=== PATIENT | female | born 1960 | race Caucasian/White ===

== ENCOUNTER → 2016-06-21 | Outpatient (CLI) | payer OTHER ==
--- NOTE | 2016-06-21 20:56 | REP ---
Clinical: Pain. Technique: AP, lateral, bilateral oblique views of the left foot. Comparison: 04/02/2009 Findings: Moderate chronic flexion and lateral deviation to the second through fourth metatarsophalangeal joints is appreciated. There is evidence for fusion at the second interphalangeal joint. Age-related changes noted to the midfoot. Lateral view demonstrates moderate calcaneal heal spur. Impression: Degenerative changes as noted above. Signed by Chad Rivas MD 06/21/2016 08:48 P
== END ==
LOC: M WUC 13:44
PROVIDERS: ATTEND Physician Assistant
DX: M79.672 Pain in left foot (principal)

== ENCOUNTER → 2016-07-22 | Outpatient (REF) | payer OTHER ==
[2016-07-22 12:10] LABS: ALT/SGPT 56 U/L (12-78); AST/SGOT 23 U/L (15-37)
== END ==
LOC: M LABDRAWC 11:41
PROVIDERS: ATTEND Physician Assistant
DX: Z79.899 Other long term (current) drug therapy (principal)

== ENCOUNTER → 2016-08-30 | Outpatient (REF) | payer OTHER ==
[2016-08-30 18:25] LABS: ALBUMIN 4.1 GM/DL (3.2-5.2); ALBUMIN/GLOBULIN RATIO 1.64 (1.00-1.93); ALKALINE PHOSPHATASE 88 U/L (45-117); ALT/SGPT 56 U/L (12-78); ANION GAP 9 MEQ/L (8-16); AST/SGOT 24 U/L (15-37); BILIRUBIN,TOTAL 0.6 MG/DL (0.2-1.0); BLOOD UREA NITROGEN 19 MG/DL (7-18); CALCIUM LEVEL 8.6 MG/DL (8.5-10.1); CARBON DIOXIDE LEVEL 29 MEQ/L (21-32); CHLORIDE LEVEL 104 MEQ/L (98-107); CHOLESTEROL LEVEL 192 MG/DL (<200); CREATININE FOR GFR 0.99 MG/DL (0.55-1.02); FREE T4 1.17 NG/DL (0.76-1.46); GLOMERULAR FILTRATION RATE > 60.0 (>51); GLUCOSE, FASTING 88 MG/DL (70-105); POTASSIUM SERUM 4.1 MEQ/L (3.5-5.1); SODIUM LEVEL 142 MEQ/L (136-145); TOTAL PROTEIN 6.6 GM/DL (6.4-8.2); TRIGLYCERIDES LEVEL 119 MG/DL (<150)
== END ==
LOC: M SFHCCLAY 13:35
PROVIDERS: ATTEND Family Medicine
DX: E78.4 Other hyperlipidemia (principal); E07.9 Disorder of thyroid, unspecified

== ENCOUNTER → 2017-03-15 | Outpatient (REF) | payer OTHER ==
[2017-03-15 12:04] LABS: ALBUMIN 3.7 GM/DL (3.2-5.2); ALBUMIN/GLOBULIN RATIO 1.54 (1.00-1.93); ALKALINE PHOSPHATASE 89 U/L (45-117); ALT/SGPT 90 U/L (12-78); ANION GAP 6 MEQ/L (8-16); AST/SGOT 37 U/L (15-37); BILIRUBIN,TOTAL 0.7 MG/DL (0.2-1.0); BLOOD UREA NITROGEN 17 MG/DL (7-18); CALCIUM LEVEL 8.8 MG/DL (8.5-10.1); CARBON DIOXIDE LEVEL 29 MEQ/L (21-32); CHLORIDE LEVEL 105 MEQ/L (98-107); CHOLESTEROL LEVEL 165 MG/DL (<200); CREATININE FOR GFR 0.93 MG/DL (0.55-1.02); FREE T4 1.19 NG/DL (0.76-1.46); GLOMERULAR FILTRATION RATE > 60.0 (>51); GLUCOSE, FASTING 144 MG/DL (70-105); POTASSIUM SERUM 4.4 MEQ/L (3.5-5.1); SODIUM LEVEL 140 MEQ/L (136-145); TOTAL PROTEIN 6.1 GM/DL (6.4-8.2); TRIGLYCERIDES LEVEL 163 MG/DL (<150)
== END ==
LOC: M SFHCCLAY 07:02
PROVIDERS: ATTEND Family Medicine
DX: E78.4 Other hyperlipidemia (principal); E07.9 Disorder of thyroid, unspecified

== ENCOUNTER → 2017-03-15 | Outpatient (REF) | payer OTHER ==
[2017-03-15 11:55] LABS: ALT/SGPT 92 U/L (12-78); AST/SGOT 37 U/L (15-37)
== END ==
LOC: M LAB REF 11:22
PROVIDERS: ATTEND Physician Assistant
DX: L40.59 Other psoriatic arthropathy (principal); Z79.899 Other long term (current) drug therapy

== ENCOUNTER → 2017-05-26 | Outpatient (CLI) | payer OTHER ==
--- NOTE | 2017-05-26 17:10 | REPMRS ---
Patient History The patient states she had a clinical breast exam in 05/2017. Family history of breast cancer in maternal aunt at age 50 or over and colorectal cancer in 2 maternal uncles at age 50 or over. Digital Woman Screen Mammo: May 26, 2017 - Exam #: [id number] Bilateral CC and MLO view(s) were taken. Technologist: Regina Stauffer Technologist Prior study comparison: November 13, 2015, digital woman screen mammo performed at [facility]. April 16, 2014, digital woman screen mammo performed at [facility]. April 12, 2013, digital woman screen mammo performed at [facility]. FINDINGS: There are scattered fibroglandular densities. There has been no change in the appearance of the mammogram from the prior studies. There is a mild amount of residual fibroglandular tissue which is fairly symmetric. There is no interval development of dominant mass, architectural distortion, or clustered microcalcification suggestive of malignancy. Scattered lymph nodes are seen in the axillae. No significant changes when compared with prior studies. ASSESSMENT: BI-RADS/ACR category 2 mammogram. Benign finding(s). Recommendation Routine screening mammogram in 1 year (for women over age 40). This mammogram was interpreted with the aid of an FDA-approved computer-aided dectection system. A. Negative x-ray reports should not delay biopsy if a dominant or clinically suspicious mass is present. B. Four to eight percent of cancers are not identified by mammography. C. Adenosis and dense breast may obscure an underlying neoplasm. Electronically Signed By: Spencer Howell MD 05/26/17 0331
== END ==
LOC: M WHC 14:44
PROVIDERS: ATTEND Family Medicine
DX: Z12.31 Encounter for screening mammogram for malignant neoplasm of breast (principal)

== ENCOUNTER → 2017-05-26 | Outpatient (REF) | payer OTHER | LOC: M SFHCWAGY 15:32 | PROVIDERS: ATTEND Nurse Practitioner Women's Health | DX: Z12.4 Encounter for screening for malignant neoplasm of cervix (principal) ==

== ENCOUNTER → 2017-08-03 | Outpatient (CLI) | payer OTHER ==
[2017-08-03 16:54] LABS: ALBUMIN 3.9 GM/DL (3.2-5.2); ALBUMIN/GLOBULIN RATIO 1.39 (1.00-1.93); ALKALINE PHOSPHATASE 98 U/L (45-117); ALT/SGPT 86 U/L (12-78); ANION GAP 6 MEQ/L (8-16); AST/SGOT 41 U/L (7-37); BILIRUBIN,DIRECT 0.1 MG/DL (0.0-0.2); BILIRUBIN,TOTAL 0.4 MG/DL (0.2-1.0); BLOOD UREA NITROGEN 16 MG/DL (7-18); C REACTIVE PROTEIN QUANTITATIV 0.96 MG/DL (0.00-0.30); CALCIUM LEVEL 8.9 MG/DL (8.5-10.1); CARBON DIOXIDE LEVEL 28 MEQ/L (21-32); CHLORIDE LEVEL 105 MEQ/L (98-107); CREATININE FOR GFR 0.88 MG/DL (0.55-1.30); GLOMERULAR FILTRATION RATE > 60.0 (>51); GLUCOSE, FASTING 135 MG/DL (70-100); POTASSIUM SERUM 4.5 MEQ/L (3.5-5.1); SODIUM LEVEL 139 MEQ/L (136-145); TOTAL PROTEIN 6.7 GM/DL (6.4-8.2)
[2017-08-03 18:09] LABS: BASO % 0.7 % (0.0-1.0); EOS # 0.2 10^3/uL (0.0-0.50); EOS % 3.5 % (0.0-3.0); HEMATOCRIT 41.5 % (36.0-47.0); HEMOGLOBIN 13.6 g/dl (12.0-16.0); IMMATURE GRANULOCYTE % 0.5 % (0-3.0); LYMPH # 1.7 10^3/uL (1.5-4.5); MEAN CORPUSCULAR HEMOGLOBIN 29.6 pg (27.0-33.0); MEAN CORPUSCULAR HGB CONC 32.8 g/dl (32.0-36.5); MEAN CORPUSCULAR VOLUME 90.2 fl (80.0-96.0); MONO # 0.6 10^3/uL (0.0-0.8); MONO % 10.1 % (0.0-5.0); NEUTROPHILS # 3.3 10^3/uL (1.8-7.7); NEUTROPHILS % 56.2 % (36.0-66.0); PLATELET COUNT, AUTOMATED 200 10^3/uL (150-450); RED CELL DISTRIBUTION WIDTH 13.8 % (11.5-14.5); WHITE BLOOD COUNT 5.9 10^3/uL (4.0-10.0)
[2017-08-06 00:06] LABS: ANA (HEP2) Positive (.)
== END ==
LOC: M LAB 15:43
DX: R94.5 Abnormal results of liver function studies (principal)
CPT/HCPCS: 82248

== ENCOUNTER → 2017-08-10 | Outpatient (CLI) | payer OTHER ==
[2017-08-10 20:13] LABS: INR 1.03; PARTIAL THROMBOPLASTIN TIME 28.5 SECONDS (26.8-37.9); PROTHROMBIN TIME 13.6 SECONDS (12.4-14.5)
== END ==
LOC: M WUC 16:31
DX: R94.5 Abnormal results of liver function studies (principal); R93.3 Abnormal findings on diagnostic imaging of other parts of digestive tract
CPT/HCPCS: 85610

== ENCOUNTER → 2017-08-25 | Outpatient (CLI) | payer OTHER ==
[~2017-08-25] MED LIST: ACETAMINOPHEN 325 MG TAB As Ordered; LIDOCAINE 1% MDV 20ML VIAL As Ordered
== END ==
LOC: M RADPRO 09:04
DX: R94.5 Abnormal results of liver function studies (principal); K76.0 Fatty (change of) liver, not elsewhere classified; Z79.899 Other long term (current) drug therapy
CPT/HCPCS: 47000

== ENCOUNTER → 2017-10-04 | Outpatient (REF) | payer OTHER ==
[2017-10-04 14:04] LABS: ALBUMIN 3.9 GM/DL (3.2-5.2); ALBUMIN/GLOBULIN RATIO 1.39 (1.00-1.93); ALKALINE PHOSPHATASE 84 U/L (45-117); ALT/SGPT 57 U/L (12-78); ANION GAP 6 MEQ/L (8-16); AST/SGOT 22 U/L (7-37); BILIRUBIN,TOTAL 0.7 MG/DL (0.2-1.0); BLOOD UREA NITROGEN 20 MG/DL (7-18); CALCIUM LEVEL 9.2 MG/DL (8.5-10.1); CARBON DIOXIDE LEVEL 29 MEQ/L (21-32); CHLORIDE LEVEL 104 MEQ/L (98-107); CHOLESTEROL LEVEL 174 MG/DL (<200); CHOLESTEROL RISK RATIO 4.833 (<5); FREE T4 1.08 NG/DL (0.76-1.46); GLOMERULAR FILTRATION RATE > 60.0 (>51); GLUCOSE, FASTING 111 MG/DL (70-100); HDL CHOLESTEROL 36 MG/DL (>40); LDL CHOLESTEROL 113.8 MG/DL (<100); NON-HDL-C 138 MG/DL; POTASSIUM SERUM 4.1 MEQ/L (3.5-5.1); SODIUM LEVEL 139 MEQ/L (136-145); THYROID STIMULATING HORMONE 0.894 uIU/ML (0.358-3.740); TOTAL PROTEIN 6.7 GM/DL (6.4-8.2); TRIGLYCERIDES LEVEL 121 MG/DL (<150)
[2017-10-04 15:12] LABS: ESTIMATED AVERAGE GLUCOSE 120 MG/DL (60-110); HEMOGLOBIN A1c 5.8 %
== END ==
LOC: M SFHCCLAY 07:06
DX: E78.4 Other hyperlipidemia (principal); E07.9 Disorder of thyroid, unspecified; R73.9 Hyperglycemia, unspecified
CPT/HCPCS: 84443

== ENCOUNTER → 2017-11-03 | Outpatient (CLI) | payer OTHER ==
[~2017-11-03] MED LIST changes: -ACETAMINOPHEN 325 MG TAB As Ordered; +GASTROGRAFIN SOLUTION 30ML (Q9963) As Ordered; +ISOVUE-370 76% 100ML VIAL (Q9967) As Ordered; -LIDOCAINE 1% MDV 20ML VIAL As Ordered
== END ==
LOC: M RAD 14:16
DX: R10.30 Lower abdominal pain, unspecified (principal); Z90.710 Acquired absence of both cervix and uterus
CPT/HCPCS: Q9963

== ENCOUNTER → 2018-04-09 | Outpatient (REF) | payer OTHER ==
[2018-04-09 12:25] LABS: ANION GAP 7 MEQ/L (8-16); BLOOD UREA NITROGEN 19 MG/DL (7-18); CALCIUM LEVEL 9.1 MG/DL (8.5-10.1); CARBON DIOXIDE LEVEL 29 MEQ/L (21-32); CHLORIDE LEVEL 103 MEQ/L (98-107); CREATININE FOR GFR 1.05 MG/DL (0.55-1.30); GLOMERULAR FILTRATION RATE 57.7 (>51); GLUCOSE, FASTING 130 MG/DL (70-100); POTASSIUM SERUM 4.1 MEQ/L (3.5-5.1); SODIUM LEVEL 139 MEQ/L (136-145)
[2018-04-09 13:14] LABS: ESTIMATED AVERAGE GLUCOSE 131 MG/DL (60-110); HEMOGLOBIN A1c 6.2 %
== END ==
LOC: M SFHCCLAY 08:34
DX: R73.9 Hyperglycemia, unspecified (principal)

== ENCOUNTER → 2018-04-17 | Outpatient (REF) | payer OTHER ==
[2018-04-18 12:31] LABS: HEMOGLOBIN 14.2 g/dl (12.0-15.5); PLATELET COUNT, AUTOMATED 228 10^3/uL (150-450)
[2018-04-18 12:31] LABS: WHITE BLOOD COUNT 6.5 10^3/uL (4.0-10.0)
[2018-04-18 12:58] LABS: ALT/SGPT 70 U/L (12-78)
[2018-04-18 12:58] LABS: AST/SGOT 34 U/L (7-37)
== END ==
LOC: M LABDRAWC 04-18 11:23
DX: Z51.81 Encounter for therapeutic drug level monitoring (principal); L40.0 Psoriasis vulgaris; Z79.899 Other long term (current) drug therapy

== ENCOUNTER → 2018-05-02 | Outpatient (REF) | payer OTHER ==
[2018-05-02 11:48] LABS: WHITE BLOOD COUNT 6.1 10^3/uL (4.0-10.0)
[2018-05-02 11:48] LABS: HEMATOCRIT 43.1 % (36.0-47.0); HEMOGLOBIN 14.1 g/dl (12.0-15.5); PLATELET COUNT, AUTOMATED 202 10^3/uL (150-450)
[2018-05-02 11:55] LABS: ALT/SGPT 69 U/L (12-78)
[2018-05-02 11:55] LABS: AST/SGOT 36 U/L (7-37)
== END ==
LOC: M LAB REF 11:28
DX: L40.1 Generalized pustular psoriasis (principal); Z51.81 Encounter for therapeutic drug level monitoring; Z79.899 Other long term (current) drug therapy

== ENCOUNTER → 2018-05-23 | Outpatient (REF) | payer OTHER ==
[2018-05-23 11:39] LABS: BASO % 0.5 % (0.0-1.0); EOS # 0.3 10^3/uL (0.0-0.50); EOS % 4.3 % (0.0-3.0); IMMATURE GRANULOCYTE % 0.6 % (0-3.0); LYMPH # 1.5 10^3/uL (1.5-4.5); LYMPH % 22.8 % (24.0-44.0); MEAN CORPUSCULAR HEMOGLOBIN 29.9 pg (27.0-33.0); MEAN CORPUSCULAR HGB CONC 31.8 g/dl (32.0-36.5); MONO # 0.5 10^3/uL (0.0-0.8); MONO % 8.1 % (0.0-5.0); NEUTROPHILS # 4.2 10^3/uL (1.8-7.7); NEUTROPHILS % 63.7 % (36.0-66.0); PLATELET COUNT, AUTOMATED 205 10^3/uL (150-450); RED BLOOD COUNT 4.68 10^6/uL (4.00-5.40); RED CELL DISTRIBUTION WIDTH 13.5 % (11.5-14.5); WHITE BLOOD COUNT 6.5 10^3/uL (4.0-10.0)
[2018-05-23 11:53] LABS: AST/SGOT 25 U/L (7-37)
[2018-05-23 11:53] LABS: ALT/SGPT 55 U/L (12-78)
== END ==
LOC: M LABDRAWC 11:06
DX: Z51.81 Encounter for therapeutic drug level monitoring (principal); Z79.899 Other long term (current) drug therapy; L40.0 Psoriasis vulgaris

== ENCOUNTER → 2018-05-30 | Outpatient (REF) | payer OTHER ==
[2018-05-30 11:43] LABS: BASO # 0.1 10^3/uL (0.0-0.2); BASO % 0.9 % (0.0-1.0); EOS # 0.3 10^3/uL (0.0-0.50); EOS % 4.3 % (0.0-3.0); HEMATOCRIT 43.7 % (36.0-47.0); HEMOGLOBIN 14.3 g/dl (12.0-15.5); IMMATURE GRANULOCYTE % 0.6 % (0-3.0); LYMPH # 1.7 10^3/uL (1.5-4.5); LYMPH % 25.2 % (24.0-44.0); MEAN CORPUSCULAR HEMOGLOBIN 30.5 pg (27.0-33.0); MEAN CORPUSCULAR HGB CONC 32.7 g/dl (32.0-36.5); MEAN CORPUSCULAR VOLUME 93.2 fl (80.0-96.0); MONO # 0.5 10^3/uL (0.0-0.8); MONO % 7.9 % (0.0-5.0); NEUTROPHILS % 61.1 % (36.0-66.0); PLATELET COUNT, AUTOMATED 216 10^3/uL (150-450); RED BLOOD COUNT 4.69 10^6/uL (4.00-5.40); RED CELL DISTRIBUTION WIDTH 13.4 % (11.5-14.5); WHITE BLOOD COUNT 6.6 10^3/uL (4.0-10.0)
[2018-05-30 12:56] LABS: AST/SGOT 26 U/L (7-37)
[2018-05-30 12:56] LABS: ALT/SGPT 52 U/L (12-78)
== END ==
LOC: M LABDRAWC 11:21
DX: Z51.81 Encounter for therapeutic drug level monitoring (principal); Z79.899 Other long term (current) drug therapy; L40.0 Psoriasis vulgaris
CPT/HCPCS: 84460

== ENCOUNTER → 2018-06-06 | Outpatient (REF) | payer OTHER ==
[2018-06-06 11:48] LABS: BASO % 0.7 % (0.0-1.0); EOS # 0.3 10^3/uL (0.0-0.50); EOS % 5.2 % (0.0-3.0); HEMATOCRIT 43.3 % (36.0-47.0); LYMPH # 1.6 10^3/uL (1.5-4.5); LYMPH % 25.3 % (24.0-44.0); MEAN CORPUSCULAR HEMOGLOBIN 29.8 pg (27.0-33.0); MEAN CORPUSCULAR HGB CONC 32.3 g/dl (32.0-36.5); MEAN CORPUSCULAR VOLUME 92.1 fl (80.0-96.0); MONO # 0.5 10^3/uL (0.0-0.8); MONO % 7.8 % (0.0-5.0); NEUTROPHILS # 3.7 10^3/uL (1.8-7.7); NEUTROPHILS % 60.3 % (36.0-66.0); PLATELET COUNT, AUTOMATED 195 10^3/uL (150-450); WHITE BLOOD COUNT 6.1 10^3/uL (4.0-10.0)
[2018-06-06 11:58] LABS: ALT/SGPT 53 U/L (12-78)
== END ==
LOC: M LABDRAWC 11:22
PROVIDERS: ATTEND Nurse Practitioner Family
DX: Z51.81 Encounter for therapeutic drug level monitoring (principal); Z79.899 Other long term (current) drug therapy; L40.0 Psoriasis vulgaris

== ENCOUNTER → 2018-06-13 | Outpatient (REF) | payer OTHER ==
[2018-06-13 11:53] LABS: BASO # 0.1 10^3/uL (0.0-0.2); BASO % 0.7 % (0.0-1.0); EOS # 0.4 10^3/uL (0.0-0.50); EOS % 5.7 % (0.0-3.0); HEMATOCRIT 42.3 % (36.0-47.0); HEMOGLOBIN 14.1 g/dl (12.0-15.5); LYMPH # 1.7 10^3/uL (1.5-4.5); LYMPH % 23.9 % (24.0-44.0); MEAN CORPUSCULAR HEMOGLOBIN 30.6 pg (27.0-33.0); MEAN CORPUSCULAR HGB CONC 33.3 g/dl (32.0-36.5); MEAN CORPUSCULAR VOLUME 91.8 fl (80.0-96.0); MONO # 0.6 10^3/uL (0.0-0.8); MONO % 8.6 % (0.0-5.0); NEUTROPHILS # 4.2 10^3/uL (1.8-7.7); NEUTROPHILS % 60.4 % (36.0-66.0); PLATELET COUNT, AUTOMATED 214 10^3/uL (150-450); RED BLOOD COUNT 4.61 10^6/uL (4.00-5.40)
[2018-06-13 12:01] LABS: ALT/SGPT 50 U/L (12-78)
== END ==
LOC: M LABDRAWC 11:20
PROVIDERS: ATTEND Nurse Practitioner Family
DX: Z51.81 Encounter for therapeutic drug level monitoring (principal); Z79.899 Other long term (current) drug therapy; L40.0 Psoriasis vulgaris

== ENCOUNTER → 2018-07-04 | Outpatient (REF) | payer OTHER ==
[2018-07-04 11:49] LABS: BASO % 0.8 % (0.0-1.0); EOS # 0.3 10^3/uL (0.0-0.50); HEMATOCRIT 42.5 % (36.0-47.0); LYMPH # 1.8 10^3/uL (1.5-4.5); LYMPH % 35.9 % (24.0-44.0); MEAN CORPUSCULAR HEMOGLOBIN 30.9 pg (27.0-33.0); MEAN CORPUSCULAR HGB CONC 32.9 g/dl (32.0-36.5); MEAN CORPUSCULAR VOLUME 93.8 fl (80.0-96.0); MONO # 0.5 10^3/uL (0.0-0.8); NEUTROPHILS # 2.4 10^3/uL (1.8-7.7); NEUTROPHILS % 47.7 % (36.0-66.0); PLATELET COUNT, AUTOMATED 186 10^3/uL (150-450); RED BLOOD COUNT 4.53 10^6/uL (4.00-5.40)
[2018-07-04 13:20] LABS: ALBUMIN 3.5 GM/DL (3.2-5.2); ALT/SGPT 50 U/L (12-78); BILIRUBIN,DIRECT 0.2 MG/DL (0.0-0.2); BILIRUBIN,TOTAL 0.5 MG/DL (0.2-1.0); BLOOD UREA NITROGEN 15 MG/DL (7-18); CALCIUM LEVEL 8.8 MG/DL (8.5-10.1); CARBON DIOXIDE LEVEL 26 MEQ/L (21-32); CHLORIDE LEVEL 105 MEQ/L (98-107); GLOMERULAR FILTRATION RATE > 60.0 (>51); GLUCOSE, FASTING 165 MG/DL (70-100); PHOSPHORUS LEVEL 3.4 MG/DL (2.5-4.9); POTASSIUM SERUM 4.5 MEQ/L (3.5-5.1); SODIUM LEVEL 142 MEQ/L (136-145)
== END ==
LOC: M LABDRAWC 11:21
PROVIDERS: ATTEND Nurse Practitioner Family
DX: Z51.81 Encounter for therapeutic drug level monitoring (principal); Z79.899 Other long term (current) drug therapy; L40.0 Psoriasis vulgaris

== ENCOUNTER → 2018-07-11 | Outpatient (REF) | payer OTHER ==
[2018-07-11 12:57] LABS: BASO % 0.8 % (0.0-1.0); EOS # 0.3 10^3/uL (0.0-0.50); EOS % 5.7 % (0.0-3.0); HEMATOCRIT 42.8 % (36.0-47.0); LYMPH # 1.5 10^3/uL (1.5-4.5); LYMPH % 27.7 % (24.0-44.0); MEAN CORPUSCULAR HEMOGLOBIN 30.6 pg (27.0-33.0); MEAN CORPUSCULAR HGB CONC 32.7 g/dl (32.0-36.5); MEAN CORPUSCULAR VOLUME 93.7 fl (80.0-96.0); MONO # 0.6 10^3/uL (0.0-0.8); MONO % 11.5 % (0.0-5.0); NEUTROPHILS # 2.8 10^3/uL (1.8-7.7); NEUTROPHILS % 53.9 % (36.0-66.0); PLATELET COUNT, AUTOMATED 187 10^3/uL (150-450); RED BLOOD COUNT 4.57 10^6/uL (4.00-5.40); WHITE BLOOD COUNT 5.2 10^3/uL (4.0-10.0)
[2018-07-11 13:19] LABS: ALBUMIN 3.6 GM/DL (3.2-5.2); ALT/SGPT 48 U/L (12-78); BILIRUBIN,DIRECT 0.1 MG/DL (0.0-0.2); BILIRUBIN,TOTAL 0.4 MG/DL (0.2-1.0); BLOOD UREA NITROGEN 17 MG/DL (7-18); CALCIUM LEVEL 8.7 MG/DL (8.5-10.1); CARBON DIOXIDE LEVEL 29 MEQ/L (21-32); CHLORIDE LEVEL 106 MEQ/L (98-107); GLOMERULAR FILTRATION RATE > 60.0 (>51); GLUCOSE, FASTING 120 MG/DL (70-100); PHOSPHORUS LEVEL 3.7 MG/DL (2.5-4.9); POTASSIUM SERUM 4.4 MEQ/L (3.5-5.1); SODIUM LEVEL 140 MEQ/L (136-145); TOTAL PROTEIN 6.3 GM/DL (6.4-8.2)
== END ==
LOC: M LABDRAWC 12:31
PROVIDERS: ATTEND Nurse Practitioner Family
DX: L40.0 Psoriasis vulgaris (principal); Z79.899 Other long term (current) drug therapy; Z51.81 Encounter for therapeutic drug level monitoring

== ENCOUNTER → 2018-07-18 | Outpatient (REF) | payer OTHER ==
[2018-07-18 17:32] LABS: BASO # 0.1 10^3/uL (0.0-0.2); BASO % 0.7 % (0.0-1.0); EOS # 0.3 10^3/uL (0.0-0.50); EOS % 4.4 % (0.0-3.0); HEMATOCRIT 43.3 % (36.0-47.0); HEMOGLOBIN 14.2 g/dl (12.0-15.5); LYMPH # 2.1 10^3/uL (1.5-4.5); LYMPH % 27.6 % (24.0-44.0); MEAN CORPUSCULAR HEMOGLOBIN 30.5 pg (27.0-33.0); MEAN CORPUSCULAR HGB CONC 32.8 g/dl (32.0-36.5); MEAN CORPUSCULAR VOLUME 92.9 fl (80.0-96.0); MONO # 0.7 10^3/uL (0.0-0.8); MONO % 9.1 % (0.0-5.0); NEUTROPHILS # 4.4 10^3/uL (1.8-7.7); NEUTROPHILS % 57.7 % (36.0-66.0); PLATELET COUNT, AUTOMATED 216 10^3/uL (150-450); RED BLOOD COUNT 4.66 10^6/uL (4.00-5.40); WHITE BLOOD COUNT 7.7 10^3/uL (4.0-10.0)
[2018-07-18 17:33] LABS: ALBUMIN 3.8 GM/DL (3.2-5.2); ALT/SGPT 50 U/L (12-78); BILIRUBIN,DIRECT < 0.1 MG/DL (0.0-0.2); BILIRUBIN,TOTAL 0.4 MG/DL (0.2-1.0); BLOOD UREA NITROGEN 19 MG/DL (7-18); CALCIUM LEVEL 8.8 MG/DL (8.5-10.1); CARBON DIOXIDE LEVEL 31 MEQ/L (21-32); CHLORIDE LEVEL 104 MEQ/L (98-107); CREATININE FOR GFR 0.92 MG/DL (0.55-1.30); GLOMERULAR FILTRATION RATE > 60.0 (>51); GLUCOSE, FASTING 87 MG/DL (70-100); PHOSPHORUS LEVEL 3.7 MG/DL (2.5-4.9); POTASSIUM SERUM 4.8 MEQ/L (3.5-5.1); SODIUM LEVEL 139 MEQ/L (136-145); TOTAL PROTEIN 6.3 GM/DL (6.4-8.2)
== END ==
LOC: M LABDRAWC 12:16
PROVIDERS: ATTEND Nurse Practitioner Family
DX: L40.0 Psoriasis vulgaris (principal); Z51.81 Encounter for therapeutic drug level monitoring

== ENCOUNTER → 2018-07-25 | Outpatient (REF) | payer OTHER ==
[2018-07-25 12:33] LABS: BASO % 0.8 % (0.0-1.0); EOS # 0.3 10^3/uL (0.0-0.50); EOS % 5.5 % (0.0-3.0); HEMATOCRIT 43.6 % (36.0-47.0); HEMOGLOBIN 14.1 g/dl (12.0-15.5); LYMPH # 1.4 10^3/uL (1.5-4.5); LYMPH % 28.3 % (24.0-44.0); MEAN CORPUSCULAR HEMOGLOBIN 30.7 pg (27.0-33.0); MEAN CORPUSCULAR HGB CONC 32.3 g/dl (32.0-36.5); MEAN CORPUSCULAR VOLUME 94.8 fl (80.0-96.0); MONO # 0.5 10^3/uL (0.0-0.8); MONO % 9.3 % (0.0-5.0); NEUTROPHILS # 2.8 10^3/uL (1.8-7.7); NEUTROPHILS % 55.7 % (36.0-66.0); PLATELET COUNT, AUTOMATED 182 10^3/uL (150-450); WHITE BLOOD COUNT 5.1 10^3/uL (4.0-10.0)
[2018-07-25 12:39] LABS: ALBUMIN 3.9 GM/DL (3.2-5.2); BILIRUBIN,DIRECT 0.2 MG/DL (0.0-0.2); BILIRUBIN,TOTAL 0.5 MG/DL (0.2-1.0); CALCIUM LEVEL 9.1 MG/DL (8.5-10.1); CREATININE FOR GFR 1.04 MG/DL (0.55-1.30); GLOMERULAR FILTRATION RATE 58.4 (>51); PHOSPHORUS LEVEL 3.5 MG/DL (2.5-4.9); POTASSIUM SERUM 4.3 MEQ/L (3.5-5.1); TOTAL PROTEIN 6.3 GM/DL (6.4-8.2)
== END ==
LOC: M LABDRAWC 11:22
PROVIDERS: ATTEND Nurse Practitioner Family
DX: L40.0 Psoriasis vulgaris (principal); Z79.899 Other long term (current) drug therapy; Z51.81 Encounter for therapeutic drug level monitoring

== ENCOUNTER → 2018-08-01 | Outpatient (CLI) | payer OTHER ==
--- NOTE | 2018-08-01 15:36 | REPMRS ---
Patient History The patient states she had a clinical breast exam in 07/2018. Family history of breast cancer at age 50 or over in maternal aunt, colorectal cancer at age 50 or over in maternal uncle, colorectal cancer at age 50 or over in maternal uncle. Taking estrogen for 1 year. 3D TOMOSYNTHESIS WAS PERFORMED. Digital Woman Screen Mammo: August 01, 2018 - Exam #: [id number] Bilateral CC and MLO view(s) were taken. Technologist: Mana Richard, Technologist Prior study comparison: May 26, 2017, digital woman screen mammo performed at [facility]. November 13, 2015, digital woman screen mammo performed at [facility]. FINDINGS: There are scattered fibroglandular densities. There has been no change in the appearance of the mammogram from the prior studies. There is a mild amount of residual fibroglandular tissue which is fairly symmetric. There is no interval development of dominant mass, architectural distortion, or clustered microcalcification suggestive of malignancy. Assessment: BI-RADS/ACR category 1 mammogram. Negative Mammogram. Recommendation Routine screening mammogram in 1 year (for women over age 40). This mammogram was interpreted with the aid of an FDA-approved computer-aided dectection system. Electronically Signed By: Pernell Tejeda MD 08/01/18 [id number]
== END ==
LOC: M WHC 14:32
PROVIDERS: ATTEND Nurse Practitioner Women's Health
DX: Z12.31 Encounter for screening mammogram for malignant neoplasm of breast (principal)

== ENCOUNTER → 2018-08-08 | Outpatient (REF) | payer OTHER ==
[2018-08-08 12:59] LABS: BASO % 0.5 % (0.0-1.0); EOS # 0.3 10^3/uL (0.0-0.50); EOS % 4.7 % (0.0-3.0); HEMATOCRIT 42.6 % (36.0-47.0); HEMOGLOBIN 13.8 g/dl (12.0-15.5); LYMPH # 1.7 10^3/uL (1.5-4.5); LYMPH % 29.9 % (24.0-44.0); MEAN CORPUSCULAR HEMOGLOBIN 30.9 pg (27.0-33.0); MEAN CORPUSCULAR HGB CONC 32.4 g/dl (32.0-36.5); MEAN CORPUSCULAR VOLUME 95.5 fl (80.0-96.0); MONO # 0.5 10^3/uL (0.0-0.8); MONO % 8.9 % (0.0-5.0); NEUTROPHILS % 55.1 % (36.0-66.0); PLATELET COUNT, AUTOMATED 189 10^3/uL (150-450); RED BLOOD COUNT 4.46 10^6/uL (4.00-5.40); WHITE BLOOD COUNT 5.5 10^3/uL (4.0-10.0)
[2018-08-08 13:00] LABS: ALBUMIN 3.8 GM/DL (3.2-5.2); ALT/SGPT 48 U/L (12-78); BILIRUBIN,DIRECT 0.1 MG/DL (0.0-0.2); BILIRUBIN,TOTAL 0.4 MG/DL (0.2-1.0); BLOOD UREA NITROGEN 17 MG/DL (7-18); CALCIUM LEVEL 8.6 MG/DL (8.5-10.1); CARBON DIOXIDE LEVEL 30 MEQ/L (21-32); CHLORIDE LEVEL 105 MEQ/L (98-107); CREATININE FOR GFR 0.89 MG/DL (0.55-1.30); GLOMERULAR FILTRATION RATE > 60.0 (>51); GLUCOSE, FASTING 110 MG/DL (70-100); PHOSPHORUS LEVEL 3.3 MG/DL (2.5-4.9); POTASSIUM SERUM 4.6 MEQ/L (3.5-5.1); SODIUM LEVEL 140 MEQ/L (136-145); TOTAL PROTEIN 6.3 GM/DL (6.4-8.2)
== END ==
LOC: M LABDRAWC 11:17
PROVIDERS: ATTEND Nurse Practitioner Family
DX: L40.0 Psoriasis vulgaris (principal); Z51.81 Encounter for therapeutic drug level monitoring; Z79.899 Other long term (current) drug therapy

== ENCOUNTER → 2018-08-22 | Outpatient (REF) | payer OTHER ==
[2018-08-22 12:07] LABS: BASO # 0.1 10^3/uL (0.0-0.2); EOS # 0.4 10^3/uL (0.0-0.50); EOS % 5.9 % (0.0-3.0); LYMPH # 1.5 10^3/uL (1.5-4.5); LYMPH % 24.4 % (24.0-44.0); MEAN CORPUSCULAR HEMOGLOBIN 30.6 pg (27.0-33.0); MEAN CORPUSCULAR HGB CONC 32.6 g/dl (32.0-36.5); MEAN CORPUSCULAR VOLUME 94.1 fl (80.0-96.0); MONO # 0.6 10^3/uL (0.0-0.8); NEUTROPHILS # 3.7 10^3/uL (1.8-7.7); NEUTROPHILS % 58.9 % (36.0-66.0); PLATELET COUNT, AUTOMATED 224 10^3/uL (150-450); RED BLOOD COUNT 4.57 10^6/uL (4.00-5.40); WHITE BLOOD COUNT 6.2 10^3/uL (4.0-10.0)
[2018-08-22 12:31] LABS: ALT/SGPT 52 U/L (12-78)
== END ==
LOC: M LABDRAWC 11:25
PROVIDERS: ATTEND Nurse Practitioner Family
DX: Z51.81 Encounter for therapeutic drug level monitoring (principal); L40.0 Psoriasis vulgaris; Z79.899 Other long term (current) drug therapy

== ENCOUNTER → 2018-10-08 | Outpatient (REF) | payer OTHER ==
[2018-10-08 11:39] LABS: ALBUMIN 3.9 GM/DL (3.2-5.2); ALT/SGPT 47 U/L (12-78); BILIRUBIN,TOTAL 0.5 MG/DL (0.2-1.0); BLOOD UREA NITROGEN 15 MG/DL (7-18); CALCIUM LEVEL 8.6 MG/DL (8.5-10.1); CARBON DIOXIDE LEVEL 26 MEQ/L (21-32); CHLORIDE LEVEL 106 MEQ/L (98-107); CHOLESTEROL LEVEL 168 MG/DL (<200); CHOLESTEROL RISK RATIO 4.941 (<5); CREATININE FOR GFR 0.89 MG/DL (0.55-1.30); GLOMERULAR FILTRATION RATE > 60.0 (>51); GLUCOSE, FASTING 135 MG/DL (70-100); HDL CHOLESTEROL 34 MG/DL (>40); LDL CHOLESTEROL 99.8 MG/DL (<100); NON-HDL-C 134 MG/DL; POTASSIUM SERUM 4.3 MEQ/L (3.5-5.1); SODIUM LEVEL 139 MEQ/L (136-145); TOTAL PROTEIN 6.2 GM/DL (6.4-8.2); TRIGLYCERIDES LEVEL 171 MG/DL (<150)
== END ==
LOC: M SFHCCLAY 07:17
PROVIDERS: ATTEND Family Medicine
DX: R73.9 Hyperglycemia, unspecified (principal); E78.2 Mixed hyperlipidemia; E03.9 Hypothyroidism, unspecified

== ENCOUNTER → 2019-04-02 | Outpatient (REF) | payer OTHER ==
[2019-04-02 13:33] LABS: APPEARANCE, URINE CLEAR (CLEAR); BACTERIA, URINE AUTO NEGATIVE (NEGATIVE); BILIRUBIN, URINE AUTO NEGATIVE (NEGATIVE); BLOOD, URINE BLOOD NEGATIVE (NEGATIVE); COLOR, URINE COLORLESS (YELLOW); GLUCOSE, URINE (UA) AUTO NEGATIVE (NEGATIVE); KETONE, URINE AUTO NEGATIVE (NEGATIVE); LEUKOCYTE ESTERASE, URINE AUTO NEGATIVE (NEGATIVE); NITRITE, URINE AUTO NEGATIVE (NEGATIVE); PROTEIN, URINE AUTO NEGATIVE (NEGATIVE); RBC, URINE AUTO 0 /HPF (0-3); SPECIFIC GRAVITY URINE AUTO 1.003 (1.002-1.035); SQUAMOUS EPITHELIAL CELL UR AU 1 /HPF (0-6); UROBILINOGEN, URINE AUTO 0.2 mg/dL (0.0-2.0); WBC, URINE AUTO 0 /HPF (0-3)
== END ==
LOC: M LAB REF 12:11
PROVIDERS: ATTEND Physician Assistant Medical
DX: N39.0 Urinary tract infection, site not specified (principal)

== ENCOUNTER → 2019-04-08 | Outpatient (REF) | payer OTHER ==
[2019-04-08 11:49] LABS: ALBUMIN 3.8 GM/DL (3.2-5.2); ALT/SGPT 41 U/L (12-78); BILIRUBIN,TOTAL 0.9 MG/DL (0.2-1.0); BLOOD UREA NITROGEN 17 MG/DL (7-18); CALCIUM LEVEL 8.8 MG/DL (8.5-10.1); CARBON DIOXIDE LEVEL 30 MEQ/L (21-32); CHLORIDE LEVEL 106 MEQ/L (98-107); CREATININE FOR GFR 0.94 MG/DL (0.55-1.30); GLOMERULAR FILTRATION RATE > 60.0 (>51); GLUCOSE, FASTING 137 MG/DL (70-100); POTASSIUM SERUM 5.3 MEQ/L (3.5-5.1); SODIUM LEVEL 139 MEQ/L (136-145); TOTAL PROTEIN 6.3 GM/DL (6.4-8.2)
[2019-04-08 12:53] LABS: HEMOGLOBIN A1c 6.3 %
== END ==
LOC: M SFHCCLAY 07:14
PROVIDERS: ATTEND Family Medicine
DX: R73.9 Hyperglycemia, unspecified (principal); E03.9 Hypothyroidism, unspecified

== ENCOUNTER → 2019-04-11 | Outpatient (CLI) | payer OTHER ==
--- NOTE | 2019-04-11 15:30 | REP ---
REASON: Pyrexia and chills. FINDINGS: The superior mediastinal structures are midline. The cardiac silhouette is unremarkable in size, shape, and position. The diaphragmatic surfaces of the lungs are regular, and the costophrenic angles are clear. The pulmonary raya are clear. The imaged osseous structures are intact. IMPRESSION: There is no acute cardiopulmonary disease. Electronically Signed by Zac Reyes DO 04/11/2019 04:57 P
== END ==
LOC: M CLY 13:52
PROVIDERS: ATTEND Family Medicine
DX: R50.9 Fever, unspecified (principal); R07.1 Chest pain on breathing

== ENCOUNTER → 2019-10-07 | Outpatient (REF) | payer OTHER ==
[2019-10-07 16:19] LABS: ALBUMIN 3.7 GM/DL (3.2-5.2); ALT/SGPT 46 U/L (12-78); BILIRUBIN,TOTAL 0.5 MG/DL (0.2-1.0); BLOOD UREA NITROGEN 11 MG/DL (7-18); CALCIUM LEVEL 8.9 MG/DL (8.5-10.1); CARBON DIOXIDE LEVEL 28 MEQ/L (21-32); CHLORIDE LEVEL 107 MEQ/L (98-107); CHOLESTEROL LEVEL 175 MG/DL (<200); CHOLESTEROL RISK RATIO 5.468 (<5); CREATININE FOR GFR 0.96 MG/DL (0.55-1.30); GLOMERULAR FILTRATION RATE > 60.0 (>51); GLUCOSE, FASTING 122 MG/DL (70-100); HDL CHOLESTEROL 32 MG/DL (>40); LDL CHOLESTEROL 107 MG/DL (<100); NON-HDL-C 143 MG/DL; POTASSIUM SERUM 4.3 MEQ/L (3.5-5.1); SODIUM LEVEL 140 MEQ/L (136-145); TOTAL PROTEIN 6.6 GM/DL (6.4-8.2); TRIGLYCERIDES LEVEL 179 MG/DL (<150)
[2019-10-07 18:41] LABS: HEMOGLOBIN A1c 6.7 %
== END ==
LOC: M SFHCCLAY 10:07
PROVIDERS: ATTEND Family Medicine
DX: R73.9 Hyperglycemia, unspecified (principal); E78.2 Mixed hyperlipidemia

== ENCOUNTER → 2019-11-21 | Outpatient (CLI) | payer OTHER | LOC: M PLALAB 15:43 | PROVIDERS: ATTEND Nurse Practitioner Women's Health | DX: Z12.4 Encounter for screening for malignant neoplasm of cervix (principal); Z13.71 Encounter for nonprocreative screening for genetic disease carrier status | CPT/HCPCS: 36415; 87624; G0123 ==

== ENCOUNTER → 2019-11-21 | Outpatient (CLI) | payer OTHER ==
--- NOTE | 2019-11-21 16:50 | REPMRS ---
Patient History The patient states she had a clinical breast exam in November 2019. Family history of breast cancer at age 50 or over in maternal aunt, colorectal cancer at age 50 or over in maternal uncle, colorectal cancer at age 50 or over in maternal uncle. Taking estrogen for 1 year. 3D TOMOSYNTHESIS WAS PERFORMED. The Suma Bradley lifetime risk for breast cancer is 11.9%. VOLPARA DENSITY B. Digital Woman Screen Mammo: November 21, 2019 - Exam #: [id number] Bilateral CC and MLO view(s) were taken. Technologist: Sahra Carroll, Technologist Prior study comparison: August 01, 2018, bilateral digital woman screen mammo performed at [facility]. May 26, 2017, digital woman screen mammo performed at [facility]. FINDINGS: There are scattered fibroglandular densities. There has been no change in the appearance of the mammogram from the prior studies. There is a mild amount of residual fibroglandular tissue which is fairly symmetric. There is no interval development of dominant mass, architectural distortion, or clustered microcalcification suggestive of malignancy. Assessment: BI-RADS/ACR category 1 mammogram. Negative Mammogram. Recommendation Routine screening mammogram in 1 year (for women over age 40). This mammogram was interpreted with the aid of an FDA-approved computer-aided dectection system. Electronically Signed By: Pernell Tejeda MD 11/21/19 6762
== END ==
LOC: M WHC 14:42
PROVIDERS: ATTEND Nurse Practitioner Women's Health
DX: Z12.31 Encounter for screening mammogram for malignant neoplasm of breast (principal); Z80.3 Family history of malignant neoplasm of breast; Z80.0 Family history of malignant neoplasm of digestive organs

== ENCOUNTER 2020-01-03 12:30 | Day surgery (SDC) | payer OTHER ==
[~2020-01-03] VITALS: Ht 167.6 cm; Wt 108.0 kg
[~2020-01-03 12:30] MED LIST changes: +APPLCAP PO; +CALCCAP4 PO; +COSE1INJ SC; +DEXI60CA2 PO; +FLAX1CAP5 PO; +FLON1SPR; -GASTROGRAFIN SOLUTION 30ML (Q9963) As Ordered; -ISOVUE-370 76% 100ML VIAL (Q9967) As Ordered; +LIDOCAINE 2% 100MG/5ML SDV (FOR ANES.) As Ordered ONE; +MIRA3350 PO; +MOBI4TAB PO; +NS 1,000 ML IV ONE; +OMEG12003 PO; +PROBCAP14 PO; +SYNT75TA PO; +propofoL 200 MG/20 ML VIAL As Ordered ONE
[2020-01-03] MEDS ORDERED: propofoL 200 MG/20 ML VIAL As Ordered ONE (13:25)
--- NOTE | 2020-01-03 13:44 | ROOR ---
Patient Name: Megan Colon Procedure Date: 01/03/2020 1:13 PM Date of : 1960 Age: 59 Room: [facility] Gender: Female Note Status: Finalized Procedure: Colonoscopy Indications: Constipation Providers: Orlando MARIN MD Referring MD: WILBUR PRITCHADR DO Requesting Provider: Medicines: Monitored Anesthesia Care Complications: No immediate complications. Procedure: Pre-Anesthesia Assessment: - The heart rate, respiratory rate, oxygen saturations, blood pressure, adequacy of pulmonary ventilation, and response to care were monitored throughout the procedure. The Colonoscope was introduced through the anus and advanced to the cecum, identified by appendiceal orifice and ileocecal valve. The colonoscopy was performed without difficulty. The patient tolerated the procedure well. The quality of the bowel preparation was adequate. Findings: The perianal and digital rectal examinations were normal. A diminutive polyp was found in the splenic flexure. The polyp was sessile. The polyp was removed with a cold snare. Resection and retrieval were complete. Small Internal Hemorrhoids. No other significant abnormalities were identified in a careful examination of the remainder of the colon. The exam was otherwise normal throughout the examined colon. Impression: - One diminutive polyp at the splenic flexure, removed with a cold snare. Resected and retrieved. - Small Internal Hemorrhoids. - The examination was otherwise normal on direct and retroflexion views. Recommendation: - Await pathology results. - If the pathology report reveals adenomatous tissue, then repeat the colonoscopy for surveillance in 5 years. - If the pathology report indicates hyperplastic polyp, then repeat colonoscopy for screening purposes in 10 years. - Telephone endoscopist for pathology results in 2 weeks. Orlando Marin MD Orlando MARIN MD 01/03/2020 1:44:08 PM Electronically signed by Orlando MARIN MD Number of Addenda: 0 Note Initiated On: 01/03/2020 1:13 PM Estimated Blood Loss: Estimated blood loss: none.
[2020-01-03 14:05] VITALS: BP 154/86
== END 2020-01-03 14:11 | disposition home or self-care (01) ==
LOC: M OPP 12:30
PROVIDERS: ATTEND Internal Medicine Gastroenterology
DX: K63.5 Polyp of colon (principal); K59.00 Constipation, unspecified; K64.8 Other hemorrhoids; Z79.899 Other long term (current) drug therapy

== ENCOUNTER → 2020-01-24 | Outpatient (REF) | payer OTHER ==
[~2020-01-24] MED LIST changes: -LIDOCAINE 2% 100MG/5ML SDV (FOR ANES.) As Ordered ONE; -NS 1,000 ML IV ONE; -propofoL 200 MG/20 ML VIAL As Ordered ONE
[2020-02-11 11:58] LABS: DRVV SCREEN 40.1 SEC
[2020-03-02 09:24] LABS: ANTI THROMBIN 3 ANTIGEN IMMUNO See Separate Report % NORMAL; ANTI THROMBIN 3 FUNCT ACTIVITY See Separate Report % NORMAL; VITAMIN E(ALPHA TOCOPHEROL) See Separate Report; VITAMIN E(GAMMA TOCOPHEROL) See Separate Report
[2020-03-02 09:25] LABS: ANTINUCLEAR ANTIBODIES DIRECT See Separate Report; PROTEIN C FUNCTIONAL ACTIVITY SEE SEPARATE REPORT %; PROTEIN S FUNCTIONAL ACTIVITY SEE SEPARATE REPORT %; VITAMIN B1 LEVEL WHOLE BLOOD See Separate Report; VITAMIN B6,PYRIDOXAL PHOSPHATE See Separate Report
[2020-03-02 09:26] LABS: FACTOR II PROTHROMBIN GENE AN SEE SEPARATE REPORT; FACTOR V LEIDEN FOR MEDINET SEE SEPARATE REPORT
[2020-03-03 16:19] LABS: FOLATE 15.3 NG/ML; RHEUMATOID FACTOR QUANT < 10.0 IU/ML (<15.0); VITAMIN B12 LEVEL 410 PG/ML
[2020-03-12 10:38] LABS: ALBUMIN % 66.5 % (55.8-66.1); ALPHA-1-GLOBULIN % 4.4 % (2.9-4.9); ALPHA-2-GLOBULINS % 9.1 % (7.1-11.8); BETA-1-GLOBULINS % 7.2 % (4.7-7.2)
[2020-03-12 10:39] LABS: ALBUMIN 4.66 GM/DL (3.29-5.55); ALPHA-1-GLOBULINS 0.31 GM/DL (0.17-0.41); ALPHA-2-GLOBULINS 0.64 GM/DL (0.42-0.99); BETA-2-GLOBULINS 0.27 GM/DL (0.19-0.55); BETA-2-GLOBULINS % 3.9 % (3.2-6.5); GAMMA GLOBULIN % 8.9 % (11.1-18.8); GAMMA GLOBULINS 0.62 GM/DL (0.65-1.58)
== END ==
LOC: M LAB REF 12:32
PROVIDERS: ATTEND Psychiatry & Neurology Neurology
DX: R51 Headache (principal); G45.9 Transient cerebral ischemic attack, unspecified

== ENCOUNTER → 2020-02-28 | Outpatient (REF) | payer OTHER ==
[2020-02-28 13:57] LABS: BASO # 0.1 10^3/uL (0.0-0.2); BASO % 0.7 % (0.0-1.0); EOS # 0.3 10^3/uL (0.0-0.5); EOS % 4.3 % (0.0-3.0); HEMOGLOBIN 12.9 g/dl (12.0-15.5); LYMPH # 1.9 10^3/uL (1.5-5.0); LYMPH % 25.8 % (24.0-44.0); MEAN CORPUSCULAR HEMOGLOBIN 29.1 pg (27.0-33.0); MEAN CORPUSCULAR HGB CONC 32.3 g/dl (32.0-36.5); MEAN CORPUSCULAR VOLUME 90.3 fl (80.0-96.0); MONO # 0.6 10^3/uL (0.0-0.8); MONO % 8.4 % (0.0-5.0); NEUTROPHILS # 4.4 10^3/uL (1.5-8.5); NEUTROPHILS % 59.7 % (36.0-66.0); PLATELET COUNT, AUTOMATED 204 10^3/uL (150-450); RED BLOOD COUNT 4.43 10^6/uL (4.00-5.40); WHITE BLOOD COUNT 7.4 10^3/uL (4.0-10.0)
[2020-02-28 14:08] LABS: INR 0.94; PROTHROMBIN TIME 12.8 SECONDS (11.8-14.0)
[2020-02-28 14:09] LABS: PARTIAL THROMBOPLASTIN TIME 27.1 SECONDS (25.0-38.4)
[2020-02-28 14:23] LABS: APPEARANCE, URINE CLOUDY (CLEAR); BACTERIA, URINE AUTO NEGATIVE (NEGATIVE); BILIRUBIN, URINE AUTO NEGATIVE (NEGATIVE); BLOOD, URINE BLOOD NEGATIVE (NEGATIVE); COLOR, URINE YELLOW (YELLOW); GLUCOSE, URINE (UA) AUTO NEGATIVE (NEGATIVE); KETONE, URINE AUTO NEGATIVE (NEGATIVE); LEUKOCYTE ESTERASE, URINE AUTO NEGATIVE (NEGATIVE); MUCUS, URINE SMALL (NEGATIVE); NITRITE, URINE AUTO NEGATIVE (NEGATIVE); PROTEIN, URINE AUTO NEGATIVE (NEGATIVE); RBC, URINE AUTO 1 /HPF (0-3); SPECIFIC GRAVITY URINE AUTO 1.026 (1.002-1.035); SQUAMOUS EPITHELIAL CELL UR AU 4 /HPF (0-6); UROBILINOGEN, URINE AUTO 0.2 mg/dL (0.0-2.0); WBC, URINE AUTO 2 /HPF (0-3)
[2020-02-28 14:46] LABS: HEMOGLOBIN A1c 7.5 %
[2020-02-28 15:25] LABS: ALBUMIN 3.7 GM/DL (3.2-5.2); ALT/SGPT 45 U/L (12-78); BILIRUBIN,DIRECT 0.2 MG/DL (0.0-0.2); BILIRUBIN,TOTAL 0.5 MG/DL (0.2-1.0); BLOOD UREA NITROGEN 16 MG/DL (7-18); CALCIUM LEVEL 9.2 MG/DL (8.5-10.1); CARBON DIOXIDE LEVEL 26 MEQ/L (21-32); CHLORIDE LEVEL 103 MEQ/L (98-107); GLOMERULAR FILTRATION RATE > 60.0 (>51); GLUCOSE, FASTING 221 MG/DL (70-100); HCG, SERUM QUANTITATIVE < 1.0 MIU/ML; MAGNESIUM LEVEL 2.2 MG/DL (1.8-2.4); PHOSPHORUS LEVEL 2.8 MG/DL (2.5-4.9); POTASSIUM SERUM 5.3 MEQ/L (3.5-5.1); SODIUM LEVEL 136 MEQ/L (136-145); TOTAL PROTEIN 6.6 GM/DL (6.4-8.2)
== END ==
LOC: M LABDRAWC 11:25
PROVIDERS: ATTEND Nurse Practitioner Adult Health
DX: I67.5 Moyamoya disease (principal)

== ENCOUNTER → 2020-03-31 | Outpatient (REF) | payer OTHER ==
[2020-03-31 16:33] LABS: HEMOGLOBIN A1c 7.1 %
[2020-03-31 16:42] LABS: ALBUMIN 3.6 GM/DL (3.2-5.2); ALT/SGPT 36 U/L (12-78); BILIRUBIN,TOTAL 0.4 MG/DL (0.2-1.0); BLOOD UREA NITROGEN 14 MG/DL (7-18); CALCIUM LEVEL 8.9 MG/DL (8.5-10.1); CARBON DIOXIDE LEVEL 30 MEQ/L (21-32); CHLORIDE LEVEL 104 MEQ/L (98-107); CREATININE FOR GFR 0.93 MG/DL (0.55-1.30); GLOMERULAR FILTRATION RATE > 60.0 (>51); GLUCOSE, FASTING 179 MG/DL (70-100); POTASSIUM SERUM 4.5 MEQ/L (3.5-5.1); SODIUM LEVEL 140 MEQ/L (136-145); THYROID STIMULATING HORMONE 0.665 uIU/ML (0.358-3.740); TOTAL PROTEIN 6.3 GM/DL (6.4-8.2)
== END ==
LOC: M SFHCCLAY 10:57
PROVIDERS: ATTEND Family Medicine
DX: R73.9 Hyperglycemia, unspecified (principal); E03.9 Hypothyroidism, unspecified

== ENCOUNTER 2020-06-13 04:28 | Observation (INO) | payer OTHER ==
[~2020-06-13] VITALS: Ht 168.9 cm; Wt 112.0 kg
[~2020-06-13 04:28] MED LIST changes: -FLON1SPR; +FLON1SPR NARES
[2020-06-13] MEDS ORDERED: ASPI81CH33 PO (04:52)
[2020-06-13] MEDS ORDERED: MORPHINE 2 MG/ML 1ML VIAL (J2270) IV PRN (05:00)
[2020-06-13] MEDS ORDERED: ONDANSETRON 4MG/2ML VIAL IV ONE (05:00)
[2020-06-13] MEDS ORDERED: NS 1,000 ML IV ONE (05:00)
[2020-06-13] MEDS ORDERED: ISOVUE-370 76% 100ML VIAL As Ordered ONE (05:04)
[2020-06-13 05:11] LABS: BASO # 0.1 10^3/uL (0.0-0.2); BASO % 0.6 % (0.0-1.0); EOS # 0.3 10^3/uL (0.0-0.5); EOS % 3.2 % (0.0-3.0); HEMATOCRIT 43.4 % (36.0-47.0); HEMOGLOBIN 13.5 g/dl (12.0-15.5); LYMPH # 1.5 10^3/uL (1.5-5.0); LYMPH % 18.6 % (24.0-44.0); MEAN CORPUSCULAR HEMOGLOBIN 26.7 pg (27.0-33.0); MEAN CORPUSCULAR HGB CONC 31.1 g/dl (32.0-36.5); MEAN CORPUSCULAR VOLUME 85.8 fl (80.0-96.0); MONO # 0.8 10^3/uL (0.0-0.8); MONO % 10.2 % (0.0-5.0); NEUTROPHILS # 5.4 10^3/uL (1.5-8.5); NEUTROPHILS % 65.8 % (36.0-66.0); PLATELET COUNT, AUTOMATED 219 10^3/uL (150-450); RED BLOOD COUNT 5.06 10^6/uL (4.00-5.40); WHITE BLOOD COUNT 8.2 10^3/uL (4.0-10.0)
[2020-06-13 06:05] LABS: ALBUMIN 3.7 GM/DL (3.2-5.2); ALT/SGPT 39 U/L (12-78); BILIRUBIN,DIRECT 0.1 MG/DL (0.0-0.2); BILIRUBIN,TOTAL 0.5 MG/DL (0.2-1.0); BLOOD UREA NITROGEN 18 MG/DL (7-18); CALCIUM LEVEL 8.6 MG/DL (8.5-10.1); CARBON DIOXIDE LEVEL 27 MEQ/L (21-32); CHLORIDE LEVEL 103 MEQ/L (98-107); CK-MB VALUE MASS < 1.0 NG/ML (<3.6); CPK CREATINE PHOSPHOKINASE 50 U/L (26-192); CREATININE FOR GFR 0.85 MG/DL (0.55-1.30); GLOMERULAR FILTRATION RATE > 60.0 (>51); GLUCOSE, FASTING 184 MG/DL (70-100); LIPASE 114 U/L (73-393); SODIUM LEVEL 136 MEQ/L (136-145); TROPONIN I < 0.02 NG/ML (< 0.10)
--- NOTE | 2020-06-13 07:17 | REPVR ---
PROCEDURE INFORMATION: Exam: CT Abdomen And Pelvis With Contrast Exam date and time: 06/13/2020 4:49 AM Age: 60 years old Clinical indication: Abdominal pain; Generalized TECHNIQUE: Imaging protocol: Computed tomography of the abdomen and pelvis with intravenous contrast. Radiation optimization: All CT scans at this facility use at least one of these dose optimization techniques: automated exposure control; mA and/or kV adjustment per patient size (includes targeted exams where dose is matched to clinical indication); or iterative reconstruction. Contrast material: ISO; Contrast volume: 100 ml; Contrast route: INTRAVENOUS (IV); COMPARISON: CT ABD PELVIS WITH CONTRAST 11/03/2017 4:06 PM FINDINGS: Lungs: Mild centrilobular emphysema. Liver: Hepatomegaly and steatosis. Gallbladder and bile ducts: Distended gallbladder demonstrates wall thickening and pericholecystic fluid. Suggestion mild hyperemia in the adjacent liver parenchyma. Suspect acute cholecystitis. Pancreas: Normal. No ductal dilation. Spleen: Normal. No splenomegaly. Adrenal glands: Normal. No mass. Kidneys and ureters: Simple cyst in the superior pole the left kidney. Stomach and bowel: Unremarkable. No obstruction. No mucosal thickening. Appendix: No evidence of appendicitis. Intraperitoneal space: Unremarkable. No free air. No significant fluid collection. Vasculature: Unremarkable. No abdominal aortic aneurysm. Lymph nodes: Unremarkable. No enlarged lymph nodes. Urinary bladder: Unremarkable as visualized. Reproductive: Status post hysterectomy. Bones/joints: Degenerative disease and facet hypertrophy of the lumbar spine.. Soft tissues: Small containing umbilical hernia. IMPRESSION: Distended gallbladder demonstrates wall thickening and pericholecystic fluid. Suggestion mild hyperemia in the adjacent liver parenchyma. Suspect acute cholecystitis. Hepatomegaly and steatosis. COMMENTS: Consistent with the [employer]'s Incidental Findings Committee white paper (J Am Billy Radiol 2018): Any incidental renal lesion less than 1 cm or classified as too small to characterize, or any incidental cystic renal lesion characterized as simple-appearing, is likely benign. No follow-up imaging is recommended for these lesions per consensus recommendations based on imaging criteria. Electronically signed by: Gilbert Garcia On 06/13/2020 07:17:08 AM
--- NOTE | 2020-06-13 07:53 | REPVR ---
PROCEDURE INFORMATION: Exam: US Abdomen, Limited; Right Upper Quadrant Exam date and time: 06/13/2020 7:35 AM Age: 60 years old Clinical indication: Abdominal pain; Additional info: Ruq pain TECHNIQUE: Imaging protocol: US abdomen. Real time ultrasound with image documentation. Limited exam focused on the right upper quadrant. COMPARISON: CT ABD/PEL W/IV CONTRAST ONLY 06/13/2020 6:17 AM FINDINGS: Liver: Coarse echogenic attenuating liver parenchyma. Gallbladder: Distended gallbladder. Pericholecystic fluid. Mild thickening of the gallbladder wall. Positive sonographic Flannery sign. Common bile duct: Normal. No stones. No dilation. Pancreas: Visualized pancreas is unremarkable. Right kidney: Normal. No mass. No hydronephrosis. IMPRESSION: Findings suggestive of acute cholecystitis. Steatosis. Electronically signed by: Gilbert Garcia On 06/13/2020 07:53:19 AM
[2020-06-13] MEDS ORDERED: AMPICILLIN SOD/SULBACTAM SOD 3 GM in D5W MINI-BAG PLUS 100 ML IV ONE (08:00)
--- NOTE | 2020-06-13 08:10 | REP ---
INDICATION: RUQ PAIN COMPARISON: 04/11/2019 TECHNIQUE: Portable AP view of the chest FINDINGS: The mediastinum and cardiac silhouette are stable and within normal limits for portable technique. The lung raya are clear without acute consolidation, effusion, or pneumothorax. Skeletal structures are intact. IMPRESSION: No acute cardiopulmonary process appreciated. <Electronically signed by Chad Rivas > 06/13/20 0800
[2020-06-13] MEDS ORDERED: ONDANSETRON 4MG/2ML VIAL IV PRN (09:45)
[2020-06-13] MEDS ORDERED: KETOROLAC 30 MG/ML 1ML VIAL IV PRN (09:45)
[2020-06-13] MEDS ORDERED: NORCO, ANEXSIA 5/325MG TABLET (HYDROcodone/ACETAMINOPHEN) PO PRN (09:45)
[2020-06-13 10:41] LABS: RSV AMPLIFICATION NEGATIVE (NEGATIVE)
--- NOTE | 2020-06-13 11:06 | HPE ---
HISTORY AND PHYSICAL DATE OF ADMISSION: 06/13/2020 CHIEF COMPLAINT: Abdominal pain. HISTORY OF PRESENT ILLNESS: The patient is a 60-year-old female who has had abdominal pain in the right upper quadrant for the past two days. It has been intermittent in intensity, but has not completely gone away since [place]. She has had intermittent nausea and vomiting along with it. The pain does not really appear to radiate too far; but when she came into the emergency room, she did have signs of acute cholecystitis on an ultrasound. She denies fevers or chills. No recent travel or trauma. No changes in medications or diet. She has had problems with the right upper quadrant pain over 10 years ago. She had a HIDA scan at the time that was negative, and she has never had any known gallstones. She was told she is prediabetic, but she is currently not on any medications for that. She was given three months by her primary to treat that with diet and exercise alone. PAST MEDICAL HISTORY: 1. Prediabetes. 2. Arthritis. 3. Recent brain vascular procedure. PAST SURGICAL HISTORY: 1. Vascular procedure in the brain. 2. Tonsillectomy and adenoidectomy. 3. and tubal ligation. ALLERGIES: None. HOME MEDICATIONS: Please see med rec including aspirin. REVIEW OF SYSTEMS: Pertinent positives and negatives as stated in the HPI. SOCIAL HISTORY: Denies drug, alcohol, or tobacco abuse. FAMILY HISTORY: Non-contributory. PHYSICAL EXAMINATION: GENERAL: Alert and oriented x3, in no acute distress. VITAL SIGNS: Temperature 97.3, pulse 82, respiratory rate 16, blood pressure 127/70, pulse ox 97% on room air. HEENT: Pupils equal, round, reactive to light and accommodation. HEART: S1, S2. Regular rate and rhythm. LUNGS: Clear to auscultation bilaterally. ABDOMEN: Soft. Tender to palpation in the right upper quadrant. Localized guarding. No rigidity. No generalized peritonitis. EXTREMITIES: No clubbing, cyanosis, or edema. LABORATORY DATA: White count 8.2, hemoglobin 13.5, platelets 219,000. Alkaline phosphatase 129, total bilirubin 0.5, AST 13, ALT 39, lactic acid 1.4. IMAGING: CT abdomen and pelvis showed a distended gallbladder with wall thickening and pericholecystic fluid that was followed up by an ultrasound, which also showed a distended gallbladder with pericholecystic fluid, mild thickening of the gallbladder wall, and positive sonographic Flannery's sign. No sign of any stones. ASSESSMENT AND PLAN: The patient is a 60-year-old female with acute acalculous cholecystitis. Recommendation at this time is to treat with some antibiotics and some anti-inflammatories. I will keep her overnight for observation and see how she is doing in the morning. If in the morning her pain is improved, I will send her home and have her see me in the office to schedule an outpatient elective procedure. However, if she does not improve by morning then we will plan for robotic cholecystectomy around 8 a.m. tomorrow.
[2020-06-13 11:35] VITALS: BP 127/69
[2020-06-13] MEDS: NS 1,000 ML IV SCH ×2 (12:09→17:58)
[2020-06-13] MEDS: PANTOPRAZOLE 40MG VIAL (C9113 PER 1) IV SCH ×2 (12:12→21:31)
[2020-06-13 14:00] VITALS: BP 106/58
[2020-06-13] MEDS: PIPERACILLIN/TAZOBACTAM SOD 3.375 GM in D5W MINI-BAG PLUS 50 ML IV SCH ×2 (15:16→21:32)
--- NOTE | 2020-06-13 18:19 | ECGEPIP ---
[facility] - ED Test Date: 2020-06-13 Pat Name: SERA SHORT Department: Room: [place] [address] Gender: Female District Or District Office Director: : 1960 Requested By: KATHY Escalera Order Number: [id number] Reading MD: Vandana Urbina Measurements Intervals [place] Rate: 82 P: 45 [place]: 202 QRS: 12 QRSD: 88 T: 22 QT: 363 QTc: 426 Interpretive Statements SINUS RHYTHM No prior Electronically Signed on 06-13-2020 18:19:19 EST by Vandana Urbina
[2020-06-13] MEDS: SENOKOT S TAB PO SCH (21:32)
[2020-06-13 22:00] VITALS: BP 105/59
[2020-06-14] MEDS: NS 1,000 ML IV SCH (01:51)
[2020-06-14] MEDS: PIPERACILLIN/TAZOBACTAM SOD 3.375 GM in D5W MINI-BAG PLUS 50 ML IV SCH ×2 (03:19→08:42)
[2020-06-14 06:00] VITALS: BP 102/51
[2020-06-14 06:31] LABS: HEMATOCRIT 39.4 % (36.0-47.0); HEMOGLOBIN 11.9 g/dl (12.0-15.5); MEAN CORPUSCULAR HEMOGLOBIN 26.6 pg (27.0-33.0); MEAN CORPUSCULAR HGB CONC 30.2 g/dl (32.0-36.5); MEAN CORPUSCULAR VOLUME 87.9 fl (80.0-96.0); PLATELET COUNT, AUTOMATED 197 10^3/uL (150-450); RED BLOOD COUNT 4.48 10^6/uL (4.00-5.40); WHITE BLOOD COUNT 5.3 10^3/uL (4.0-10.0)
[2020-06-14 06:54] LABS: ALBUMIN 2.9 GM/DL (3.2-5.2); ALT/SGPT 31 U/L (12-78); BILIRUBIN,TOTAL 0.6 MG/DL (0.2-1.0); BLOOD UREA NITROGEN 12 MG/DL (7-18); CALCIUM LEVEL 8.2 MG/DL (8.5-10.1); CARBON DIOXIDE LEVEL 28 MEQ/L (21-32); CHLORIDE LEVEL 108 MEQ/L (98-107); CREATININE FOR GFR 0.84 MG/DL (0.55-1.30); GLOMERULAR FILTRATION RATE > 60.0 (>51); GLUCOSE, FASTING 156 MG/DL (70-100); POTASSIUM SERUM 4.2 MEQ/L (3.5-5.1); SODIUM LEVEL 140 MEQ/L (136-145); TOTAL PROTEIN 5.2 GM/DL (6.4-8.2)
[2020-06-14] MEDS ORDERED: AUGM875T28 PO (07:47)
[2020-06-14] MEDS: SENOKOT S TAB PO SCH (08:42)
[2020-06-14] MEDS: PANTOPRAZOLE 40MG VIAL (C9113 PER 1) IV SCH (08:42)
--- NOTE | 2020-06-14 08:51 | DSES ---
DISCHARGE SUMMARY DATE OF ADMISSION: 06/13/2020 DATE OF DISCHARGE: 06/14/2020 ADMISSION DIAGNOSIS: Acute acalculous cholecystitis. DISCHARGE DIAGNOSIS: Acute acalculous cholecystitis. HOSPITAL COURSE: The patient is a 52-year-old female. She was admitted from the emergency room due to persistent pains. She had signs of cholecystitis on an ultrasound; however, she had normal labs overnight. She was treated with antibiotics, as well as anti-inflammatories this morning. Her sharp pains are significantly improved. The pain has also moved more towards the epigastric area rather than the right upper quadrant. She is comfortable enough to go home. DISCHARGE INSTRUCTIONS: Plan is to discharge her home today with antibiotic for five days. I also recommend that she can continue to take Tylenol and Motrin every 6 hours for the next 5 days to help with the inflammation. I will see her in the office for the next available appointment and will schedule her for outpatient elective cholecystectomy.
== END 2020-06-14 11:56 | disposition home or self-care (01) ==
LOC: M ED 04:28 → M ED INP 04:29 → ENRESERV 10:52 → M MSPAV 11:34
PROVIDERS: ADMIT Surgery; ATTEND Surgery
DX: K81.0 Acute cholecystitis (principal); R73.03 Prediabetes; E03.9 Hypothyroidism, unspecified; K57.92 Diverticulitis of intestine, part unspecified, without perforation or abscess without bleeding; K21.9 Gastro-esophageal reflux disease without esophagitis; Z79.899 Other long term (current) drug therapy
CPT/HCPCS: 36415; 71045; 74177; 76705; 80048; 80053; 80076; 81001; 82550; 82553; 83605; 83690; 84484; 85025; 85027; 86850; 86900; 86901; 87631; 93005; 93041; 96361; 96365; 96366; 96375; 96376; 99285; C9113; J2270; J2405; J2543; Q9967

== ENCOUNTER → 2020-07-03 | Outpatient (REF) | payer OTHER ==
[~2020-07-03] MED LIST changes: +ASPI81CH33 PO; +AUGM875T28 PO
[2020-07-03 16:56] LABS: ALBUMIN 3.7 GM/DL (3.2-5.2); ALT/SGPT 48 U/L (12-78); BILIRUBIN,TOTAL 0.4 MG/DL (0.2-1.0); BLOOD UREA NITROGEN 19 MG/DL (7-18); CARBON DIOXIDE LEVEL 30 MEQ/L (21-32); CHLORIDE LEVEL 102 MEQ/L (98-107); CHOLESTEROL LEVEL 161 MG/DL (<200); CHOLESTEROL RISK RATIO 5.366 (<5); CREATININE FOR GFR 0.95 MG/DL (0.55-1.30); GLOMERULAR FILTRATION RATE > 60.0 (>51); GLUCOSE, FASTING 196 MG/DL (70-100); HDL CHOLESTEROL 30 MG/DL (>40); LDL CHOLESTEROL 97 MG/DL (<100); NON-HDL-C 131 MG/DL; POTASSIUM SERUM 5.2 MEQ/L (3.5-5.1); SODIUM LEVEL 136 MEQ/L (136-145); TOTAL PROTEIN 6.2 GM/DL (6.4-8.2); TRIGLYCERIDES LEVEL 169 MG/DL (<150)
[2020-07-03 18:52] LABS: HEMOGLOBIN A1c 7.1 %
== END ==
LOC: M SFHCCLAY 10:36
PROVIDERS: ATTEND Family Medicine
DX: E78.2 Mixed hyperlipidemia (principal); R73.9 Hyperglycemia, unspecified; E07.9 Disorder of thyroid, unspecified

== ENCOUNTER → 2020-07-19 | Outpatient (CLI) | payer OTHER | LOC: M LABSMTC 10:17 | PROVIDERS: ATTEND Anesthesiology | DX: Z01.812 Encounter for preprocedural laboratory examination (principal); Z20.822 Contact with and (suspected) exposure to COVID-19 ==

== ENCOUNTER 2020-07-24 12:25 | Day surgery (SDC) | payer OTHER ==
[~2020-07-24] VITALS: Ht 167.6 cm; Wt 109.2 kg
[~2020-07-24 12:25] MED LIST changes: +LR 1,000 ML IV ONE
--- OUTSIDE RECORDS SUMMARY | 2020-07-24 12:32 | CCD ---
Author Author [facility] Organization [facility] Address Unknown Phone Unavailable Care Team Providers Care Copper Etcher Name Role Phone Pedro Archer Unavailable PROBLEMS Type Condition ICD9-CM Code [id number] Code Onset Dates Condition S tatus SNOMED Code Notes Problem Other specified disorders of Eustachian tube, bilateral H69.83 Active [id number] Problem Gastro-esophageal reflux disease without esophagitis K21.9 Active 112385109 Problem Morbid (severe) obesity due to excess calories E66 .01 Active 586067688 Problem Other hyperlipidemia E78.4 Active 34115607 Problem PA (psoriatic arthritis) L40.50 Active 4833959 09 Problem Disorder of thyroid, unspecified E07.9 Active 88260283 Problem Vaginal atrophy N95.2 Active 139392801 Problem AK (actinic keratosis) L57.0 Active 977091012 Problem Mixed hyperlipidemia E78.2 Active 592226193 Problem Hx of hysterectomy Z90.710 Active 863269188 Problem Personal history of cervical dysplasia Z87.410 A ctive 381706897 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 85639465 Problem Primary osteoarthritis involving multiple joints M 15.0 Active 089053905 Problem Facial paresthesia R20.2 Active 53455710 Problem Hypothyroidism, unspecified type E03.9 Active 75862124 Problem Dyspareunia in female N94.10 Active 33577791 Problem Constipation, unspecified constipation type K59.00 Active 19309352 Problem Non-seasonal allergic rhinitis due to other allergic naseem er J30.89 Active 31635904 Problem Type 2 diabetes mellitus wit hout complication, without long-term current use of insulin E11.9 Active 361241310 ALLERGIES Allergen (clinical drug ingredient) Drug/Non Drug Allergy do cumented on EMR Reaction Allergy Type Onset Date Status Environmental Hayfever symptoms Non Drug Allergy Active ENCOUNTERS from 1960 to 2020-07-03 Encounter Location Date Provider Diagnosis [facility] [place] [address] Jun Pedro Howellizengnela Mixed hyperlipidemia E78.2 ; Elevated bl ood sugar R73.9 and Disorder of thyroid, unspecified E07.9 IMMUNIZATIONS No Information SOCIAL HISTORY Tobacco Use: Social History Observation Description Date Details (start date - stop date) Never Smoker Sex Assigned At : Social History Observation Description Sex Assigned At Unknown Education: Question Answer Notes Level of Education: College [employer] Question Answer Notes Total Score: 2 Interpretation: Alcohol Education Language: Question Answer Notes Languages spoken: Chinese Mormon: Question Answer Notes Mormon 35 None Sexual Hx: Question Answer Notes Had sex in the last 12 months (vaginal, oral, or anal)? Yes LMP: hyster Have you ever had an STD? No with Men only Use protection? No Drug and Alcohol Question Answer Notes Total Score: 0 Interpretation: No problems reported Alcohol Screening: Question Answer Notes Did you have a drink containing alcohol in the past year? Ye s Points 4 Interpretation Positive How often did you have six or more drinks on one occas ion in the past year? Less than monthly (1 point) How many drinks did you have on a typica l day when you were drinking in the past year? 3 or 4 (1 point) How often did you have a drink containing alcohol in t he past year? Two to four times a month (2 points) BMI Care Goal Follow-Up Question Answer Notes Above Normal BMI Follow-Up Dietary management educatio n, guidance, and counseling, Giving encouragement to exercise, Weight monitoring -44.1 Tobacco Use: Question Answer Notes Are you a: never smoker REASON FOR REFERRAL No Information VITAL SIGNS No information MEDICATIONS Medication SIG (Take, Route, Frequency, Duration) Notes Start Da te End Date Status Flax Seed Oil 1000 MG 1 capsule Orally daily Active Aspirin 81 MG 1 tablet Orally Once a day for 30 day(s) Active Apple Cider Vinegar 600 MG 2 tabs Orally daily Active Fluticasone Propionate 50 MCG/ACT 1 spray in each nost ril Nasally Once a day for 60 Active Cosentyx 150 MG/ML 1 ml Subcutaneous monthly Active Synthroid 75 MCG 1 tablet in the morning on a n empty stomach Orally Once a day for 90 days Active MiraLax - 1-3 tsp Orally Once a day for 30 Active Probiotic 1 capsule Orally Daily Ac tive Calcium 600 + D 600-400 MG-UNIT 1 tablet p.o. daily Active Fish Oil 1000 MG 1 capsule Orally Once a day Active Dexilant 60 MG 1 capsule Orally Once a day Active PROCEDURES No Information RESULTS No Results REASON FOR VISIT order MEDICAL (GENERAL) HISTORY Type Description Date Medical History GERD Medical History Psoriatic arthritis Medical History Osteoarthritis-right knee Medical History Hypothyroid Medical History Diabetes Medical History Hyperlipidemia Medical History [place] Surgical History Tonsillectomy 1980 Surgical History C section x 2 1986,1989 Surgical History Partial hysterectomy 2000 Surgical History Tubal ligation 1989 Surgical History Laser surgery of cervix 1985 Surgical History Hammer toe- Bilateral 2007,2008 Surgical History Cortisone injections- right knee 02/01 & 11/30/15 Surgical History colonoscopy- Dr. Kuo 12/2012 Surgical History Liver biopsy- [facility] 08/2017 Surgical History Colonoscopy- Dr Marin- one small polyp 12/2019 Surgical History Cerebral artery bypass- Dr. Canela [address] [facility]- Cholethiasis 06/13/2020 Goals Section No Information Health Concerns No Information MEDICAL EQUIPMENT No Information MENTAL STATUS No Information FUNCTIONAL STATUS No Information ASSESSMENTS Encounter Date Diagnosis Assessment Notes Treatment Notes Treatm ent Clinical Notes Jun, Mixed hyperlipidemia (ICD-10 - E78.2) Jun, Elevated blood sugar (ICD-10 - R73.9) Jun, Disorder of thyroid, unspecified (ICD-10 - E07.9 ) PLAN OF TREATMENT Medication Medication Name Sig Start Date Stop Date Synthroid 75 MCG 1 tablet in the morning on a n empty stomach Orally Once a day for 90 days Treatment Notes Test Name Order Date Comprehensive Metabolic Profile (CMP) 2020-07-03 LIPID PANEL (CARDIAC RISK) 2020-07-03 HEMOGLOBIN A1c 2020-07-03 TSH 2020-07-03 Next Appt Details Provider Name:Pedro Archer, 03:30:00 PM, [address] [place], [address], Provider Name:Pedro Archer, 09:00:00 AM, [address] [place], [address], Provider Name:Fauzia Zhang, 3 01:00:00 PM, [address] [place], [address], Provider Name:Desi Armando, 2020-11-24 03:00:00 PM, [address] [place], [address], Insurance Providers Payer Name Payer Address Payer Phone Insured Name Patient Relati onship to Insured Coverage Start Date Coverage End Date [facility] [id number] [facility] [id number] SERA SHORT self
--- OUTSIDE RECORDS SUMMARY | 2020-07-24 12:32 | CCD ---
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 Machine Operator Name Role Phone Pedro Archer Unavailable PROBLEMS Type Condition ICD9-CM Code [id number] Code Onset Dates Condition S tatus SNOMED Code Notes Problem Other hyperlipidemia E78.4 Active 82793897 Problem Other specified disorders of Eustachian tube, bilateral H69.83 Active [id number] Problem Disorder of thyroid, unspecified E07.9 Active 72503099 Problem Morbid (severe) obesity due to excess calories E66 .01 Active 837346567 Problem AK (actinic keratosis) L57.0 Active 747241520 Problem PA (psoriatic arthritis) L40.50 Active 1193818 09 Problem Hypothyroidism, unspecified type E03.9 Active 79237921 Problem Vaginal atrophy N95.2 Active 506712857 Problem Hx of hysterectomy Z90.710 Active 435131672 Problem Personal history of cervical dysplasia Z87.410 A ctive 103869274 Problem Dyspareunia in female N94.10 Active 55225193 Problem Facial paresthesia R20.2 Active 14292949 Problem Mixed hyperlipidemia E78.2 Active 414579308 Problem Calculus of gallbladder without cholecystitis wi thout obstruction K80.20 Active 41386065 Problem Primary osteoarthritis involving multiple joints M 15.0 Active 438429753 Problem Gastro-esophageal reflux disease without esophagitis K21.9 Active 817126722 Problem Constipation, unspecified constipation type K59.00 Active 18278236 Problem Non-seasonal allergic rhinitis due to other allergic naseem er J30.89 Active 33031104 Problem Type 2 diabetes mellitus wit hout complication, without long-term current use of insulin E11.9 Active 972732701 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 28441140 ALLERGIES Allergen (clinical drug ingredient) Drug/Non Drug Allergy do cumented on EMR Reaction Allergy Type Onset Date Status Environmental Hayfever symptoms Non Drug Allergy Active ENCOUNTERS from 1962 to 2020-07-13 Encounter Location Date Provider Diagnosis [facility] Parm[facility]it [address] [place] [address] Jun Pedro Archer Cholecystitis K81.9 ; Pre-op evaluation Z01.818 ; Type 2 diabetes mellitus without complication, without long-term current use of insulin E11.9 ; 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 ; PA (psoriatic arthritis) L40.50 ; Mixed hyperlipidemia E78.2 ; Hypothyroidism, unspecified type E03.9 ; Primary osteoarthritis involving multiple joints M15.0 ; Non-seasonal allergic rhinitis due to other allergic trigger J30.89 and Constipation, unspecified constipation type K59.00 IMMUNIZATIONS Vaccine Route Administration Date Status COVID-19(given elsewhere) Unspecified Unknown Jul 09 Administered SOCIAL HISTORY Tobacco Use: Social History Observation Description Date Details (start date - stop date) Never Smoker Sex Assigned At : Social History Observation Description Sex Assigned At Unknown Education: Question Answer Notes Level of Education: College Audit Question Answer Notes Total Score: 1 Interpretation: Alcohol Education Language: Question Answer Notes Languages spoken: Bolivian Mandaeism: Question Answer Notes Mandaeism 33 None Sexual Hx: Question Answer Notes [...] REASON FOR REFERRAL No Information VITAL SIGNS Weight 243 lbs Jun, Height 65 1/2 in Jun, BMI 39.82 kg/m2 Jun, Heart Rate 87 /min Jun, Respiratory Rate 16 /min Jun, Temperature 96.6 degrees Fahrenheit Jun, Oximetry 100RA Jun, Blood pressure systolic 123 mm Hg Jun, Blood pressure diastolic 81 mm Hg Jun, MEDICATIONS Medication SIG (Take, Route, Frequency, Duration) Notes Start Da te End Date Status Apple Cider Vinegar 600 MG 2 tabs Orally daily Active Probiotic 1 capsule Orally Daily Ac tive Cosentyx 150 MG/ML 1 ml Subcutaneous monthly Active Flax Seed Oil 1000 MG 1 capsule Orally daily Active Rosuvastatin Calcium 10 MG 1 tablet Orally Once a day for 90 day (s) Jun, Active Dexilant 60 MG 1 capsule Orally Once a day Active Aspirin 81 MG 1 tablet Orally Once a day for 30 day(s) Active Synthroid 75 MCG 1 tablet in the morning on a n empty stomach Orally Once a day for 90 days Active Fish Oil 1000 MG 1 capsule Orally Once a day Active Calcium 600 + D 600-400 MG-UNIT 1 tablet p.o. daily Active MiraLax - 1-3 tsp Orally Once a day for 30 Active Fluticasone Propionate 50 MCG/ACT 1 spray in each nost ril Nasally Once a day for 60 Active PROCEDURES No Information RESULTS No Results REASON FOR VISIT Patient having planned cholecystectomy on 07/[address] Gonzalez MEDICAL (GENERAL) HISTORY Type Description Date Medical [...] Dr. Kuo 12/2012 Surgical History Liver biopsy- [facility] 08/2017 Surgical History Colonoscopy- Dr Marin- one small polyp 12/2019 Surgical History Cerebral artery bypass- Dr. Canela 2019 Hospitalization History [facility]- Cholethiasis 06/13/2020 Goals Section No Information Health Concerns No Information MEDICAL EQUIPMENT No Information MENTAL STATUS No Information FUNCTIONAL STATUS No Information ASSESSMENTS Encounter Date Diagnosis Assessment Notes Treatment Notes Treatm ent Clinical Notes Jun, Cholecystitis (ICD-10 - K81.9) Will f/u with Dr Gonzalez as scheduled. Pt is agreeable. Jun, Pre-op evaluation (ICD-10 - Z01.818) EKG was unremarkable/NSR in May 2020. She is otherwise medically stable. She may proceed with surgery for GB at low risk. Pt is aware and agreeable to plan. Jun, Type 2 diabetes mellitus wit hout complication, without long-term current use of insulin (ICD-10 - E11.9) Discussed options, will cont to monitor closely for now, repeat in 3 months but no medications yet. Regarding statin, will start after surgery completed. Cont with nutrionist/logistics team leader. Pt agreeable to plan. Jun, Flaherty flaherty disease (ICD-10 - I67.5) Cont with Dr Canela/Jazmine as scheduled. She will also continue with Dr Ivan Kee, neurology in [place]. Pt agreeable. Jun, PA (psoriatic arthritis) (ICD-10 - L40.50) Cont with [facility]. Jun, Mixed hyperlipidemia (ICD-10 - E78.2) We discussed tx recommendations with recent dx of DM and Flaherty Flaherty and she is agreeable but would like to wait until after GB surgery. Will start rosuvastatin, side effects reviewed. Jun, Hypothyroidism, unspecified type (ICD-10 - E03.9 ) Stable. Jun, Primary osteoarthritis involving multipl e joints (ICD-10 - M15.0) She will follow with [facility] as she desires. Jun, Non-seasonal allergic rhinit is due to other allergic trigger (ICD- 10 - J30.89) Cont yeny talley. Jun, Constipation, unspecified constipation type (ICD -10 - K59.00) Will continue Miralax, prn. Pt is agreeable. PLAN OF TREATMENT Medication Medication Name Sig Start Date Stop Date Rosuvastatin Calcium 10 MG 1 tablet Orally Once a day for 90 day(s) Jun, Synthroid 75 MCG 1 tablet in the morning on a n empty stomach Orally Once a day for 90 days Treatment Notes Assessment Notes Clinical Notes Cholecystitis Will f/u with Dr Vipul gonzalez as scheduled. Pt is agreeable. Pre-op evaluation EKG was unremarkable /NSR in May 2020. She is otherwise medically stable. She may proceed with surgery for GB at low risk. Pt is aware and agreeable to plan. Type 2 diabetes mellitus without complic ation, without long-term current use of insulin Discussed options, will cont to monitor closely for now, repeat in 3 months but no medications yet. Regarding statin, will start after surgery completed. Cont with nutrionist/logistics team leader. Pt agreeable to plan. Flaherty flaherty disease Cont with Dr Canela/ Jazmine as scheduled. She will also continue with Dr Ivan Kee, neurology in [place]. Pt agreeable. PA (psoriatic arthritis) Cont with [facility]. Mixed hyperlipidemia We discussed tx rec ommendations with recent dx of DM and Stephenie Flaherty and she is agreeable but would like to wait until after GB surgery. Will start rosuvastatin, side effects reviewed. Hypothyroidism, unspecified type Stable. Primary osteoarthritis involving multiple joints She will follow with [facility] as she desires. Non-seasonal allergic rhinitis due to other allergic trigger Cont sudafed, flonase. Constipation, unspecified constipation type Will continue Miralax, prn. Pt is agreeable. Future Test Test Name Order Date Comprehensive Metabolic Profile (CMP) 20200921 LIPID PANEL (CARDIAC RISK) 20200921 HEMOGLOBIN A1c 20200921 Next Appt Details 3 Months Reason: Provider Name:Fauzia Zhang, 3 01:00:00 PM, [address] [place], [address], Provider Name:Pedro Archer, 10:30:00 AM, [address] [place] [address], [id number], Provider Name:Desi Armando, 2020-11-24 03:00:00 PM, [address] [place], [address], Insurance Providers Payer Name Payer Address Payer Phone Insured Name Patient Relati onship to Insured Coverage Start Date Coverage End [place] [facility] [address] [facility] [phone] SERA SHORT self
--- OUTSIDE RECORDS SUMMARY | 2020-07-24 12:32 | CCD | Continuity of Care Document ---
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 Name Role Phone Cony Kyle MD Unavailable Unavailable Allergies, Adverse Reactions, Alerts Substance Reaction Status Criticality nabumetone Unknown Active No Information Medications Medication Instructions Dosage Effective Dates (start - stop) Sta tus Comments Cosentyx Pen 300 mg/2 Pens (150 mg/mL) subcutaneous IN JECT 2 PENS (300MG) UNDER THE SKIN EVERY 4 WEEKS - Active CYCLOBENZAPRINE 5 MG TABLET TAKE ONE TO TWO TABLETS BY MOUTH AT BEDTIME - Active aspirin 81 mg tablet,delayed release take 1 tablet by oral r oute every day 81 MG - Active Flonase Sensimist 27.5 mcg/actuation nasal spray,suspension - Active Miralax 17 gram/dose oral powder take (17G) by oral r oute every day mixed with 8 oz. water, juice, soda, coffee or tea 17 G - Active FISH OIL (unknown strength) Not Available - Activ e Dexilant 60 mg capsule, delayed release take 1 capsule by or al route every day - Active Synthroid 75 mcg tablet take 1 tablet by oral route every day 75 M CG - Active Probiotic & Acidophilus 300 million cell-250 mg capsule - Active Calcium 500 500 mg calcium (1,250 mg) tablet take 2 by Oral route every 2 days 2 - Active flaxseed oil 1,000 mg capsule - Active TYLENOL (unknown strength) take 2 Tablet by oral route ever y 4 hours as needed Not Available - Active Problems Condition Type Effective Dates (start - stop) Clinical S tatus Comments Overweight Diagnosis interpretation (observable entity) 17 - Other psoriatic arthropathy Diagnosis interpretation (observable en tity) Other terminal manager (current) drug therapy Diagnosis inter pretation (observable entity) Fibromyalgia Diagnosis interpretation (observable entity) Other psoriatic arthropathy Diagnosis interpretation (observable en tity) Other terminal manager (current) drug therapy Diagnosis inter pretation (observable entity) Fibromyalgia Diagnosis interpretation (observable entity) Psoriasis, unspecified Diagnosis interpretation (observable entity) Other psoriatic arthropathy Diagnosis interpretation (observable en tity) Other senior care (current) drug therapy Diagnosis inter pretation (observable entity) Fibromyalgia Diagnosis interpretation (observable entity) Psoriasis, unspecified Diagnosis interpretation (observable entity) Other psoriatic arthropathy Diagnosis interpretation (observable en tity) Other terminal manager (current) drug therapy Diagnosis inter pretation (observable entity) Fibromyalgia Diagnosis interpretation (observable entity) Other psoriatic arthropathy Diagnosis interpretation (observable en tity) Psoriasis, unspecified Diagnosis interpretation (observable entity) Other terminal manager (current) drug therapy Diagnosis inter pretation (observable entity) Fibromyalgia Diagnosis interpretation (observable entity) Other psoriatic arthropathy Diagnosis interpretation (observable en tity) Other senior care (current) drug therapy Diagnosis inter pretation (observable entity) Psoriasis, unspecified Diagnosis interpretation (observable entity) Fibromyalgia Diagnosis interpretation (observable entity) Other psoriatic arthropathy Diagnosis interpretation (observable en tity) Psoriasis Diagnosis interpretation (observable entity) Other terminal manager (current) drug therapy Diagnosis inter pretation (observable entity) Other psoriatic arthropathy Diagnosis interpretation (observable en tity) Psoriasis Diagnosis interpretation (observable entity) Low back pain Diagnosis interpretation (observable entity) Other terminal manager (current) drug therapy Diagnosis inter pretation (observable entity) Other psoriatic arthropathy Diagnosis interpretation (observable en tity) Other senior care (current) drug therapy Diagnosis inter pretation (observable entity) Fatty (change of) liver, not elsewhere classified Diag nosis interpretation (observable entity) Generalized osteoarthritis Diagnosis interpretation (observable ent ity) Other psoriatic arthropathy Diagnosis interpretation (observable en tity) Other terminal manager (current) drug therapy Diagnosis inter pretation (observable entity) Other psoriatic arthropathy Diagnosis interpretation (observable en tity) Other terminal manager (current) drug therapy Diagnosis inter pretation (observable entity) Fatty liver Diagnosis interpretation (observable entity) Other psoriatic arthropathy Diagnosis interpretation (observable en tity) Overweight Diagnosis interpretation (observable entity) Other psoriatic arthropathy Diagnosis interpretation (observable en tity) Other terminal manager (current) drug therapy Diagnosis inter pretation (observable entity) Lumbago Diagnosis interpretation (observable entity) Other psoriatic arthropathy Diagnosis interpretation (observable en tity) Other terminal manager (current) drug therapy Diagnosis inter pretation (observable entity) Other psoriatic arthropathy Diagnosis interpretation (observable en tity) Other terminal manager (current) drug therapy Diagnosis inter pretation (observable entity) Other psoriatic arthropathy Diagnosis interpretation (observable en tity) Other senior care (current) drug therapy Diagnosis inter pretation (observable entity) Other psoriatic arthropathy Diagnosis interpretation (observable en tity) Other terminal manager (current) drug therapy Diagnosis inter pretation (observable entity) Other senior care (current) drug therapy Diagnosis inter pretation (observable entity) Other psoriatic arthropathy Diagnosis interpretation (observable en tity) Other senior care (current) drug therapy Diagnosis inter pretation (observable entity) Encounter for screening for respiratory tuberculosis D iagnosis interpretation (observable entity) Other psoriatic arthropathy Diagnosis interpretation (observable en tity) Other senior care (current) drug therapy Diagnosis inter pretation (observable entity) Other senior care (current) drug therapy Diagnosis inter pretation (observable entity) Arthropathic psoriasis, unspecified Diagnosis interpre tation (observable entity) Other psoriatic arthropathy Diagnosis interpretation (observable en tity) Other terminal manager (current) drug therapy Diagnosis inter pretation (observable entity) Other psoriatic arthropathy Diagnosis interpretation (observable en tity) Other terminal manager (current) drug therapy Diagnosis inter pretation (observable entity) Other psoriatic arthropathy Diagnosis interpretation (observable en tity) Other terminal manager (current) drug therapy Diagnosis inter pretation (observable entity) Arthropathic psoriasis, unspecified Diagnosis interpre tation (observable entity) Other senior care (current) drug therapy Diagnosis inter pretation (observable entity) Arthropathic psoriasis, unspecified Diagnosis interpre tation (observable entity) Other terminal manager (current) drug therapy Diagnosis inter pretation (observable entity) Lumbago Diagnosis interpretation (observable entity) Arthropathic psoriasis, unspecified Diagnosis interpre tation (observable entity) Other terminal manager (current) drug therapy Diagnosis inter pretation (observable entity) Psoriasis Problem (finding) - Active Gastroesophageal reflux disease Problem (finding) - Ac tive Psoriatic arthritis Problem (finding) Active Procedures Procedure Date No Information Results Test Name Date and Time Measure Units Reference Range Abnormal Flag St atus Comments No Information Advance Directives Directive Yes / No Effective Date File Name No Information Encounters Encounter Description Practice Location Reason(s) For Visit Diagnose s Date Provider Providers Copied on Encounter [facility], [address] [place] [address], [place], [id number], [place] tel:[phone] [facility] No Information Anabella Donnelly. [address] [place] [address], [id number], [place]. tel:[phone] [facility], [address] [place] [address], [id number], [place] tel:[phone] [facility] Other psoriatic arthropathyOther terminal manager (current) drug therapyFibromyalgia Salty Silva. [address] [place] [address], [id number], [place]. tel:[phone] Specialist: Kristen Banks MD, [address] [place] [address], [address]. tel:[phone]: Isa BROTHERS, [address] [facility] [address], [place], [address]. tel:[phone] Provider: Evangelista Aragon DO, [address] , [place], [address]. tel:[phone] [facility], [address] [place] [address], [id number], [place] tel:[phone] [facility] Other psoriatic arthropathyOther senior care (current) drug therapyFibromyalgiaPsoriasis, unspecified [place] nation. [address] [place] [address], [id number], [place]. tel:[phone] Specialist: Kristen Banks MD, [address] [place] [address], [address]. tel:[phone]: Isa BROTHERS, [address] [facility] [address], [place], [address]. tel:[phone] Provider: Evangelista Aragon DO, [address], [place], [address]. tel:[phone] [facility], [address] [place] [address], [id number], [place] tel:[phone] [facility] Other psoriatic arthropathyOther senior care (current) drug therapyFibromyalgiaPsoriasis, unspecified [place] Silva. [address] [place] [address], [id number], [place]. tel:[phone] Specialist: Kristen Banks MD, [address] [place] [address], [address]. tel:[phone]: Isa BROTHERS, [address] [facility] [address], [place], [address]. tel:[phone] Provider: Evangelista Aragon DO, [address] , [place], [address]. tel:[phone] [facility], [address] [place] [address], [id number], [place] tel:[phone] [facility] No Information [place] Dentoni. [address] [place] [address], [id number], [place]. tel:[phone] [facility], [address] [place] [address], [id number], [place] tel:[phone] [facility] Other psoriatic arthropathyOther terminal manager (current) drug therapyFibromyalgia [place] Shira. [address] [place], [place], [id number], [place]. tel:[phone] Specialist: Kristen Banks MD, [facility] [place], [address]. tel:[phone]: Isa BROTHERS, [address] [facility] [address], [place], [address]. tel:[phone] Provider: Evangelista Aragon DO, [address] [place], [address]. tel:[phone] [facility], [address] [place] [address], [id number], [place] tel:[phone] [facility] Other psoriatic arthropathyPsoriasis, unspecifiedOther terminal manager (current) drug therapyFibromyalgia [place] Shira. [address] [place], [place], [id number], [place]. tel:[phone] Specialist: Kristen Banks MD, [address] [place] [address], [address]. tel:[phone]: Isa BROTHERS, [address] [facility] [address], [place], [address]. tel:[phone] Referring Provider: Evangelista Aragon DO, [address] [place], [address]. tel:[phone] [facility], [address] [place] [address], [id number], [place] tel:[phone] [facility] No Information Xiang Lopes. [address] [place] [address], [id number], [place]. tel:[phone] [facility], [address] [place] [address], [id number], [place] tel:[phone] [facility] Other psoriatic arthropathyOther senior care (current) drug therapyPsoriasis, unspecifiedFibromyalgia [place] Dentoni. [address] [place], [place], [id number], [place]. tel:[phone] Specialist: Kristen Banks MD, [address] [place] [address], [address]. tel:[phone]: Isa BROTHERS, [address] [facility] [address], [place], [address]. tel:[phone] Provider: Evangelista Aragon DO, [address] , [place], [address]. tel:[phone] [facility], [address] [place] [address], [id number], [place] tel:[phone] [facility] Other psoriatic arthropathyPsoriasisOther terminal manager (current) drug therapy Xiang Lopes. [address] [place] [address], [id number], [place]. tel:[phone] Specialist: Kristen Banks MD, [address] [place] [address], [address]. tel:[phone]: Isa BROTHERS, [address] [facility] [address], [place], [address]. tel:[phone] Provider: Evangelista Aragon DO, [address] , [place], [address]. tel:[phone] [facility], [address] [place] [address], [id number], [place] tel:[phone] [facility] Other psoriatic arthropathyPsoriasisLow back painOther terminal manager (current) drug therapy Salty Silva. [address] [place] [address], [id number], . tel:[phone] Specialist: Kristen Banks MD, [address] [place] [address], [address]. tel:[phone]: Isa BROTHERS, [address] [facility] [address], [place], [address]. tel:[phone] Provider: Evangelista Aragon DO, [address] , [place], [address]. tel:[phone] [facility], [address] [place] [address], [id number], [place] tel:[phone] [facility] Other psoriatic arthropathyOther terminal manager (current) drug therapyFatty (change of) liver, not elsewhere classifiedGeneralized osteoarthritis No Milk Condenser: Kristen Banks MD, [address] [place] [address], [address]. tel:[phone] Provider: Evangelista Aragon DO, [address] , [place], [address]. tel:[phone] [facility], [address] [place] [address], [id number], tel:[phone] [facility] Other psoriatic arthropathyOther senior care (current) drug therapy Luisa Dentoni. [address] [place] [address], [id number], . tel:[phone] Specialist: Kristen Banks MD, [address] [place] [address], [address]. tel:[phone] Provider: Evangelista Aragon DO, [address] , [place], [address]. tel:[phone] [facility], [address] [place] [address], [id number], tel:[phone] [facility] Other psoriatic arthropathyOther terminal manager (current) drug therapyFatty liver Salty Dentoni. [address] [place] [address], [id number], . tel:[phone] Specialist: Kristen Banks MD, [address] [place] [address], [address]. tel:[phone] Provider: Evangelista Aragon DO, [address] , [place], [address]. tel:[phone] [facility], [address] [place] [address], [id number], tel:[phone] [facility] Other psoriatic arthropathyOverweight [place] Shira. [address] [place] [address] [place], [id number], [place]. tel:[phone] [facility], [address] [place] [address], [id number], [place] tel:[phone] [facility] Other psoriatic arthropathyOther senior care (current) drug therapyLumbago [place] Shira. [address] [place], [place], [id number], [place]. tel:[phone] Specialist: Kristen Banks MD, [address] [place] [address], [address]. tel:[phone] Provider: Evangelista Aragon DO, [address], [place], [address]. tel:[phone] [facility], [address] [place] [address], [id number], [place] tel:[phone] [facility] Other psoriatic arthropathyOther senior care (current) drug therapy [place] Shira. [address] [place], [place], [id number], [place]. tel:[phone] [facility], [address] [place] [address], [id number], [place] tel:[phone] [facility] Other psoriatic arthropathyOther terminal manager (current) drug therapyOverweight [place] Shira. [address] [place] [address], [id number], [place]. tel:[phone] Specialist: Kristen Banks MD, [address] [place] [address], [address]. tel:[phone] Provider: Evangelista Aragon DO, [address], [address]. tel:[phone] [facility], [address] [place] [address], [id number], [place] tel:[phone] [facility] Other psoriatic arthropathyOther senior care (current) drug therapy Idahoclary Dentoni. [address] [place] [address], [id number], [place]. tel:[phone] Specialist: Kristen Banks MD, [address] [place] [address], [address]. tel:[phone] Provider: Evangelista Aragon DO, [facility] [place], [address]. tel:[phone] [facility], [address] [place] [address], [id number], [place] tel:[phone] [facility] Other psoriatic arthropathyOther senior care (current) drug therapy ClaytonAlfredo Viktor Shira. [address] [place] [address], [id number], [place]. tel:[phone] Specialist: Kristen Banks MD, [address] [place] [address], [address]. tel:[phone] Provider: Evangelista Aragon DO, [address] [place] [address], [address]. tel:[phone] [facility], [address] [place] [address], [id number], [place] tel:[phone] [facility] Other terminal manager (current) drug therapy ClaytonAlfredoViktor Shira. [address] [place] [address], [id number], [place]. tel:[phone] [facility], [address] [place] [address], [id number], [place] tel:[phone] [facility] Other psoriatic arthropathyOther terminal manager (current) drug therapy ClaytonAlfredo NewbyViktor Shira. [address] [place] [address], [id number], [place]. tel:[phone] Specialist: Kristen Banks MD, [address] [place] [address], [address]. tel:[phone] Provider: Evangelista Aragon DO, [address], [place], [address]. tel:[phone] [facility], [address] [place] [address], [id number], [place] tel:[phone] [facility] Encounter for screening for respiratory tuberculosis [place] Shira. [address] [place] [address], [id number], [place]. tel:[phone] [facility], [address] [place] [address], [id number], [place] tel:[phone] [facility] Other psoriatic arthropathyOther terminal manager (current) drug therapy [place] Vik[place] Shira. [address] [place] [address], [id number], [place]. tel:[phone] [facility], [address] [place] [address], [id number], [place] tel:[phone] [facility] Other senior care (current) drug therapyArthropathic psoriasis, unspecified [place] Shira. [address] [place] [address], [id number], [place]. tel:[phone] [facility], [address] [place] [address], [id number], [place] tel:[phone] [facility] Other psoriatic arthropathyOther terminal manager (current) drug therapy [place] Shira. [address] [place] [address], [id number], [place]. tel:[phone] Specialist: Kristen Banks MD, [address] [place], [address]. tel:[phone] Provider: Evangelista Aragon DO, [address], [place], [address]. tel:[phone] [facility], [address] [place] [address], [id number], [place] tel:[phone] [facility] Other psoriatic arthropathyOther senior care (current) drug therapy Luisa Silva. [address] [place] [address], [id number], [place]. tel:[phone] Specialist: Kristen Banks MD, [address] [place] [address], [address]. tel:[phone] Provider: Evangelista Aragon DO, [facility] [address], [place], [address]. tel:[phone] [facility], [address] [place] [address], [id number], tel:[phone] [facility] Other psoriatic arthropathyOther terminal manager (current) drug therapy Luisa Silva. [address] [place] [address], [id number], [place]. tel:[phone] Specialist: Kristen Banks MD, [address] [place] [address], [address]. tel:[phone] Provider: Evangelista Aragon DO, [address] [place] [address], [address]. tel:[phone] [facility], [address] [place] [address], [id number], [place] tel:[phone] [facility] Arthropathic psoriasis, unspecifiedOther senior care (current) drug therapy Jj Duenasa. [address] [place] [address], [id number], [place]. tel:[phone] Specialist: Kristen Banks MD, [address] [place] [address], [address]. tel:[phone] Provider: Evangelista Aragon DO, [facility] [place], [address]. tel:[phone] [facility], [address] [place] [address], [id number], [place] tel:[phone] [facility] Arthropathic psoriasis, unspecifiedOther terminal manager (current) drug therapyLumbago Salty Silva. [address] [place] [address], [id number], [place]. tel:[phone] Specialist: Kristen Banks MD, [address] [place] [address], [address]. tel:[phone] Provider: Evangelista Aragon DO, [address] , [place], [address]. tel:[phone] [facility], [address] [place] [address], [id number], tel:[phone] [facility] Arthropathic psoriasis, unspecifiedOther senior care (current) drug therapy McIlvblair Rodriguez. [address] [place] [address], [id number], [place]. tel:[phone] Specialist: Kristen Banks MD, [address] [place] [address], [address]. tel:[phone] Provider: Evangelista Aragon DO, [facility] [place], [address]. tel:[phone] [facility], [address] [place] [address], [id number], [place] tel:[phone] [facility] No Information Harmeet Rodriguez. [address] [place] [address], [id number], [place]. tel:[phone] Referring Provider: Evangelista Aragon DO, [facility] [address], [place], [address]. tel:[phone] [facility], [address] [place] [address], [id number], tel:[phone] [facility] No Information Jj Velasquez. [address] [place], [place], [id number], [place]. tel:[phone] Referring Provider: Evangelista Aragon DO, [address] [place] [address], [address]. tel:[phone] Family History Family Member Type Diagnosis Age At Onset Problem (finding) Family history of Multiple scl erosis Problem (finding) Family history of Diabetes татьяна litus Problem (finding) Family history of Lung Disease Problem (finding) Family history of Arthritis Problem (finding) Family history of Cancer Problem (finding) Family history of Psoriasis Problem (finding) Family history of Heart diseas e Problem (finding) Family history of Systemic lup us erythematosus Problem (finding) Family history of Gout Immunizations Vaccine Date Status Comments Flucelvax administered Note: approx ; Source: Other Provider Influenza, injectable, MDCK, preservativ e free, 0.5 mL dosage, Flucelvax Quad administered Source: Other Provid er Influenza, injectable, MDCK, Flucelvax Quad 18 administered Note: approx ; Source: Other Provider Influenza, injectable, quadrivalent, spl it virus, 18 years or older Afluria Quad administered Note: approx ; Sourc e: Other Provider Influenza, injectable, trivalent, split virus, 4 years and older, Fluvirin [id number] administered Source: Other Provid er Influenza, split virus, injectable, 3 years and older Fluvirin [id number] administered Note: Invalid documented adm in date was . ; Source: Other Provider Never had Zoster administered Source: New Imm unization Record Influenza virus vaccine, Injection administered Source: Other Provider pneumo (2 yrs or older) (PPV23) administered Source: Other Provider Payers Payer name Insurance type Covered constitution party ID Authorization(s ) [facility] CI [id number] Social History Type Description Quantity Date Captured Comments Sex Female Smoking Status No Information Vital Signs Date / Time: Height Weight BMI Pulse Rate Blood Pressure Temperatu re Respiratory Rate Body Surface Area Head Circumference BMI percentile Pulse Ox In haled Ox No Information Chief Complaint And Reason For Visit No Information Reason For Referral Reason For Referral No Information Plan Of Treatment Date Type Action Status Referral Ordered: *HIP, XRAY BILATERAL PELVIS, 5 VIEW ordered Referral Ordered: *LUMBOSACRAL SPINE X-RAY, 4 VIEWS ordered Appointment Megan Colon BOOKED History Of Present Illness Encounter Date Complaint History Of Present I llness No Information Functional Status Date Functional Assessment No Information Medications Administered Medication Instructions Dosage Effective Dates (start - stop) Sta tus Comments No Information Instructions Date Instruction Additional Informati on continue same medication plan call if symptoms worsen Avoid OTC NSAIDS Risks/benefits of medications reviewed Labs ordered to check disease activity. Call if symptoms return Labs ordered to check blood counts, liver and kidney functions to monitor safety of medication. Discussed / Reviewed Labs Pt. not exposed to someone i n usp nor traveled out of the country; no concern for TB screening. Risks/benefits of medications reviewed Labs ordered to check disease activity. Call if symptoms return Labs ordered to check blood counts, liver and kidney functions to monitor safety of medication. Discussed / Reviewed Labs continue same medication plan call if symptoms worsen continue same medication plan call if symptoms worsen Labs ordered to check disease activity. Weight reduction urged. Risks/benefits of medications reviewed Conservative medical care me asures discussed. Moderate activities regarding symptomatic joints. Labs ordered to check blood counts, liver and kidney functions to monitor safety of medication. Discussed / Reviewed Labs Patient plan printed and given along wit h recommendations Avoid live vaccines Discussed importance of hold ing DMARDs/ biologics if patient develops an infection and to notify the treating physician Labs ordered to check disease activity. Labs ordered to check blood counts, liver and kidney functions to monitor safety of medication. continue same medication plan call if symptoms worsen Giving encouragement to exercise Related to Overweight Labs ordered to check disease activity. Labs ordered to check blood counts, liver and kidney functions to monitor safety of medication. Avoid live vaccines Discussed importance of hold ing DMARDs/ biologics if patient develops an infection and to notify the treating physician continue same medication plan call if symptoms worsen Avoid live vaccines Discussed importance of hold ing DMARDs/ biologics if patient develops an infection and to notify the treating physician Labs ordered to check disease activity. Labs ordered to check blood counts, liver and kidney functions to monitor safety of medication. Avoid live vaccines Discussed importance of hold ing DMARDs/ biologics if patient develops an infection and to notify the treating physician Labs ordered to check disease activity. Labs ordered to check blood counts, liver and kidney functions to monitor safety of medication. continue same medication plan call if symptoms worsen Daily range of motion exercises for symp tomatic joints recommended. continue same medication plan Avoid live vaccines Discussed importance of hold ing DMARDs/ biologics if patient develops an infection and to notify the treating physician Labs ordered to check disease activity. Labs ordered to check blood counts, liver and kidney functions to monitor safety of medication. call if symptoms worsen Avoid live vaccines Discussed importance of hold ing DMARDs/ biologics if patient develops an infection and to notify the treating physician Labs ordered to check disease activity. Labs ordered to check blood counts, liver and kidney functions to monitor safety of medication. Daily range of motion exercises for symp tomatic joints recommended. call if symptoms worsen Avoid live vaccines Discussed importance of hold ing DMARDs/ biologics if patient develops an infection and to notify the treating physician Labs ordered to check disease activity. Labs ordered to check blood counts, liver and kidney functions to monitor safety of medication. Daily range of motion exercises for symp tomatic joints recommended. continue same medication plan call if symptoms worsen Avoid live vaccines Discussed importance of hold ing DMARDs/ biologics if patient develops an infection and to notify the treating physician Labs ordered to check disease activity. Labs ordered to check blood counts, liver and kidney functions to monitor safety of medication. Daily range of motion exercises for symp tomatic joints recommended. call if symptoms worsen continue same medication plan Discussed importance of hold ing DMARDs/ biologics if patient develops an infection and to notify the treating physician Discussed importance of hold ing DMARDs/ biologics if patient develops an infection and to notify the treating physician Labs ordered to check disease activity. Labs ordered to check blood counts, liver and kidney functions to monitor safety of medication. Daily range of motion exercises for symp tomatic joints recommended. call if symptoms worsen Discussed importance of hold ing DMARDs/ biologics if patient develops an infection and to notify the treating physician Physical Examination Exam Findings Details No Information
--- OUTSIDE RECORDS SUMMARY | 2020-07-24 12:33 | CCD ---
Author Author [facility] [place] [employer] [facility] [employer] [facility] Organization [facility] Address Unknown Phone Unavailable Care Team Providers Care Route Service Representative Name Role Phone Pedro Archer Unavailable PROBLEMS Type Condition ICD9-CM Code [id number] Code Onset Dates Condition S tatus SNOMED Code Notes Problem Other specified disorders of Eustachian tube, bilateral H69.83 Active 3552380279810287 Problem Gastro-esophageal reflux disease without esophagitis K21.9 Active 909307679 Problem Morbid (severe) obesity due to excess calories E66 .01 Active 913584775 Problem Other hyperlipidemia E78.4 Active 33407505 Problem PA (psoriatic arthritis) L40.50 Active 8828406 09 Problem Disorder of thyroid, unspecified E07.9 Active 93152091 Problem Vaginal atrophy N95.2 Active 746048119 Problem AK (actinic keratosis) L57.0 Active 970161615 Problem Mixed hyperlipidemia E78.2 Active 516799384 Problem Hx of hysterectomy Z90.710 Active 096174103 Problem Personal history of cervical dysplasia Z87.410 A ctive 126965063 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 06943808 Problem Primary osteoarthritis involving multiple joints M 15.0 Active 661597363 Problem Facial paresthesia R20.2 Active 08736052 Problem Hypothyroidism, unspecified type E03.9 Active 85972902 Problem Dyspareunia in female N94.10 Active 20294699 Problem Constipation, unspecified constipation type K59.00 Active 70180667 Problem Non-seasonal allergic rhinitis due to other allergic naseem er J30.89 Active 18825585 Problem Type 2 diabetes mellitus wit hout complication, without long-term current use of insulin E11.9 Active 875031320 ALLERGIES Allergen (clinical drug ingredient) Drug/Non Drug Allergy do cumented on EMR Reaction Allergy Type Onset Date Status Environmental Hayfever symptoms Non Drug Allergy Active ENCOUNTERS from 1962 to 2020-06-22 Encounter Location Date Provider Diagnosis 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 ; PA (psoriatic arthritis) L40.50 ; Mixed hyperlipidemia E78.2 ; Hypothyroidism, unspecified type E03.9 ; Primary osteoarthritis involving multiple joints M15.0 ; Non-seasonal allergic rhinitis due to other allergic trigger J30.89 and Constipation, unspecified constipation type K59.00 IMMUNIZATIONS No Information SOCIAL HISTORY Tobacco Use: Social History Observation Description Date Details (start date - stop date) Never Smoker Sex Assigned At : Social History Observation Description Sex Assigned At Unknown Education: Question Answer Notes Level of Education: College Audit Question Answer Notes Total Score: 2 Interpretation: Alcohol Education Language: Question Answer Notes Languages spoken: Occitan Adventism: Question Answer Notes Adventism 33 None Sexual Hx: Question Answer Notes [...] No Information VITAL SIGNS Weight 243 lbs May, Height 65 1/2 in May, BMI 39.82 kg/m2 May, Heart Rate 76 /min May, Respiratory Rate 16 /min May, Temperature 97.4 degrees Fahrenheit May, Oximetry 100%RA May, Blood pressure systolic 130 mm Hg May, Blood pressure diastolic 84 mm Hg May, MEDICATIONS Medication SIG (Take, Route, Frequency, Duration) [...] Information RESULTS No Results REASON FOR VISIT [facility] d/c MEDICAL (GENERAL) HISTORY Type Description Date Medical [...] Dr. Kuo 12/2012 Surgical History Liver biopsy- [facility] 08/2017 Surgical History Colonoscopy- Dr Marin- one small polyp 12/2019 Surgical History Cerebral artery bypass- Dr. Canela 2019 Hospitalization History [facility]- Cholethiasis 06/13/2020 Goals Section No Information Health Concerns No Information MEDICAL EQUIPMENT No Information MENTAL STATUS No Information FUNCTIONAL STATUS No Information ASSESSMENTS Encounter Date Diagnosis Assessment Notes Treatment Notes Treatm ent Clinical Notes May, Cholecystitis (ICD-10 - K81.9) Will f/u with Dr Gonzalez as scheduled next week with surgery likely. Pt is agreeable. May, Type 2 diabetes mellitus wit hout complication, without long-term current use of insulin (ICD-10 - E11.9) Discussed options regarding statin and will likely start after next visit in June, she would llike to hold off due to likely upcoming surgery. She will be due for labs in June as well. She has seen nutrionist/desilverizer. Pt agreeable to plan. May, Flaherty flaherty disease (ICD-10 - I67.5) Cont with Dr Canela/Jazmine as scheduled. She will also continue with Dr Ivan Kee, neurology in [place]. Pt agreeable. May, PA (psoriatic arthritis) (ICD-10 - L40.50) Cont with [facility]. May, Mixed hyperlipidemia (ICD-10 - E78.2) We discussed tx recommendations with recent dx of DM and Flaherty Flaherty and she is agreeable but would like to wait until GB issues resolve. May, Hypothyroidism, unspecified type (ICD-10 - E03.9 ) Stable. May, Primary osteoarthritis involving multipl e joints (ICD-10 - M15.0) She will follow with [facility] as she desires. May, Non-seasonal allergic rhinit is due to other allergic trigger (ICD- 10 - J30.89) Cont sudafed, flonase. May, Constipation, unspecified constipation type (ICD -10 - K59.00) Will continue Miralax, prn. Pt is agreeable. PLAN OF TREATMENT Medication Medication Name Sig Start Date Stop Date Synthroid 75 MCG 1 tablet in the morning on a n empty stomach Orally Once a day for 90 days Treatment Notes Assessment Notes Clinical Notes Cholecystitis Will f/u with Dr Vipul gonzalez as scheduled next week with surgery likely. Pt is agreeable. Type 2 diabetes mellitus without complic ation, without long-term current use of insulin Discussed options regarding statin and will likely start after next visit in June, she would llike to hold off due to likely upcoming surgery. She will be due for labs in June as well. She has seen nutrionist/desilverizer. Pt agreeable to plan. Flaherty flaherty disease Cont with Dr Ye Lucero as scheduled. She will also continue with Dr Ivan Kee, neurology in [place]. Pt agreeable. PA (psoriatic arthritis) Cont with [facility]. Mixed hyperlipidemia We discussed tx rec ommendations with recent dx of DM and Stephenie Flaherty and she is agreeable but would like to wait until GB issues resolve. Hypothyroidism, unspecified type Stable. Primary osteoarthritis involving multiple joints She will follow with [facility] as she desires. Non-seasonal allergic rhinitis due to other allergic trigger Cont sudafed, flonase. Constipation, unspecified constipation type Will continue Miralax, prn. Pt is agreeable. Next Appt Details as scheduled Reason: Provider Name:Pedro Archer, 03:30:00 PM, [address] [place] [address], [id number], Provider Name:Fauzia Zhang, 3 01:00:00 PM, [address] [place], [address], Provider Name:Desi Armando, 2020-11-24 03:00:00 PM, [address] [place], [phone], Insurance Providers Payer Name Payer Address Payer Phone Insured Name Patient Relati onship to Insured Coverage Start Date Coverage End Date [facility] [id number] [facility] [phone] SERA SHORT self
--- OUTSIDE RECORDS SUMMARY | 2020-07-24 12:33 | CCD ---
Author Author [facility] [employer] [facility] Organization [facility] [employer] [facility] Address Unknown Phone Unavailable Care Team Providers Care Fisher [place] Net Name Role Phone Pedro Archer Unavailable PROBLEMS Type Condition ICD9-CM Code PFF72-CR Code Onset Dates Condition S tatus SNOMED Code Notes Problem Other specified disorders of Eustachian tube, bilateral H69.83 Active 3388991317024484 Problem Gastro-esophageal reflux disease without esophagitis K21.9 Active 130235614 Problem Morbid (severe) obesity due to excess calories E66 .01 Active 304987554 Problem Other hyperlipidemia E78.4 Active 10464647 Problem PA (psoriatic arthritis) L40.50 Active 3050780 09 Problem Disorder of thyroid, unspecified E07.9 Active 69764243 Problem Vaginal atrophy N95.2 Active 221339128 Problem AK (actinic keratosis) L57.0 Active 254052651 Problem Mixed hyperlipidemia E78.2 Active 724946733 Problem Hx of hysterectomy Z90.710 Active 549367417 Problem Personal history of cervical dysplasia Z87.410 A ctive 485824439 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 23176344 Problem Primary osteoarthritis involving multiple joints M 15.0 Active 404429650 Problem Facial paresthesia R20.2 Active 64546253 Problem Hypothyroidism, unspecified type E03.9 Active 07956040 Problem Dyspareunia in female N94.10 Active 81307981 Problem Constipation, unspecified constipation type K59.00 Active 42559771 Problem Non-seasonal allergic rhinitis due to other allergic naseem er J30.89 Active 50538588 Problem Type 2 diabetes mellitus wit hout complication, without long-term current use of insulin E11.9 Active 610415088 ALLERGIES Allergen (clinical drug ingredient) Drug/Non Drug Allergy do cumented on EMR Reaction Allergy Type Onset Date Status Environmental Hayfever symptoms Non Drug Allergy Active ENCOUNTERS from 1962 to 2020-06-18 Encounter Location Date Provider Diagnosis [facility] [place] [address] May Pedro Archer IMMUNIZATIONS No Information SOCIAL HISTORY Tobacco Use: Social History Observation Description Date Details (start date - stop date) Never Smoker Sex Assigned At : Social History Observation Description Sex Assigned At Unknown Education: Question Answer Notes Level of Education: College Audit Question Answer Notes Total Score: 2 Interpretation: Alcohol Education Language: Question Answer Notes Languages spoken: Czech Gnosticist: Question Answer Notes Gnosticist 33 None Sexual Hx: Question Answer Notes [...] Once a day for 30 day(s) Active Fluticasone Propionate 50 MCG/ACT 1 spray in each nost ril Nasally Once a day for 60 Active Amoxicillin-Pot Clavulanate 875-125 MG 1 tablet Orally every 12 hrs May, Jun, Active Cosentyx 150 MG/ML 1 ml Subcutaneous monthly Active Synthroid 75 MCG 1 tablet in the morning on a n empty stomach Orally Once a day for 90 days Active MiraLax - 1-3 tsp Orally Once a day for 30 Active Probiotic 1 capsule Orally Daily Ac tive Apple Cider Vinegar 600 MG 2 tabs Orally daily Active Calcium 600 + D 600-400 MG-UNIT 1 tablet p.o. daily Active Fish Oil 1000 MG 1 capsule Orally Once a day Active Dexilant 60 MG 1 capsule Orally Once a day Active PROCEDURES No Information RESULTS No Results REASON FOR VISIT [facility] D/C 06/14 MEDICAL (GENERAL) HISTORY Type Description Date Medical [...] Dr. Kuo 12/2012 Surgical History Liver biopsy- [facility] 08/2017 Surgical History Colonoscopy- Dr Marin- one small polyp 12/2019 Surgical History Cerebral artery bypass- Dr. Canela 2019 Hospitalization History [facility]- Cholethiasis 06/13/2020 Goals Section No Information Health Concerns No Information MEDICAL EQUIPMENT No Information MENTAL STATUS No Information FUNCTIONAL STATUS No Information ASSESSMENTS Encounter Date Diagnosis Assessment Notes Treatment Notes Treatm ent Clinical Notes May, Other Discussion with patient. hospital follow up appt made and confirmed, medications reviewed and verified, Jw Armando RN 06/15/2020 1201 PLAN OF TREATMENT Medication Medication Name Sig Start Date Stop Date Synthroid 75 MCG 1 tablet in the morning on a n empty stomach Orally Once a day for 90 days Next Appt Details Provider Name:Pedro Archer, 03:30:00 PM, [address] [place] [address], [phone], Provider Name:Fauzia Zhang, 3 01:00:00 PM, [address] [place] [address], [phone], Provider Name:Desi Armando, 2020-11-24 03:00:00 PM, [facility] [place], [address], Insurance Providers Payer Name Payer Address Payer Phone Insured Name Patient Relati onship to Insured Coverage Start Date Coverage End Date [facility] [id number] [facility] [id number] SERA SHORT self
--- OUTSIDE RECORDS SUMMARY | 2020-07-24 12:33 | CCD | Continuity of Care Document ---
Author Author [facility] Organization 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 Name Role Phone Salty PARDO Shira Unavailable Unavailable Allergies, Adverse Reactions, Alerts Substance [...] arthropathy Diagnosis interpretation (observable en tity) Other oysterman (current) drug therapy Diagnosis inter pretation (observable entity) Fibromyalgia Diagnosis interpretation (observable entity) Other psoriatic arthropathy Diagnosis interpretation (observable en tity) Other oysterman (current) drug therapy Diagnosis inter pretation (observable entity) Fibromyalgia Diagnosis interpretation (observable entity) Psoriasis, unspecified Diagnosis interpretation (observable entity) Other psoriatic arthropathy Diagnosis interpretation (observable en tity) Other long-term (current) drug therapy Diagnosis inter pretation (observable entity) Fibromyalgia Diagnosis interpretation (observable entity) Psoriasis, unspecified Diagnosis interpretation (observable entity) Other psoriatic arthropathy Diagnosis interpretation (observable en tity) Other long-term (current) drug therapy Diagnosis inter pretation (observable entity) Fibromyalgia Diagnosis interpretation (observable entity) Other psoriatic arthropathy Diagnosis interpretation (observable en tity) Psoriasis, unspecified Diagnosis interpretation (observable entity) Other 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 (current) drug therapy Diagnosis inter pretation (observable entity) Fibromyalgia Diagnosis interpretation (observable entity) Other psoriatic arthropathy Diagnosis interpretation (observable en tity) Other long-term (current) drug therapy Diagnosis inter pretation (observable entity) Psoriasis, unspecified Diagnosis interpretation (observable entity) Fibromyalgia Diagnosis interpretation (observable entity) Other psoriatic arthropathy Diagnosis interpretation (observable en tity) Psoriasis Diagnosis interpretation (observable entity) Other long-term (current) drug therapy Diagnosis inter pretation (observable entity) Other psoriatic arthropathy Diagnosis interpretation (observable en tity) Psoriasis Diagnosis interpretation (observable entity) Low back pain Diagnosis interpretation (observable entity) Other long-term (current) drug therapy Diagnosis inter pretation (observable entity) Other psoriatic arthropathy Diagnosis interpretation (observable en tity) Other long-term (current) drug therapy Diagnosis inter pretation (observable entity) Fatty (change of) liver, not elsewhere classified Diag nosis interpretation (observable entity) Generalized osteoarthritis Diagnosis interpretation (observable ent ity) Other psoriatic arthropathy Diagnosis interpretation (observable en tity) Other oysterman (current) drug therapy Diagnosis inter pretation (observable entity) Other psoriatic arthropathy Diagnosis interpretation (observable en tity) Other long-term (current) drug therapy Diagnosis inter pretation (observable entity) Fatty liver Diagnosis interpretation (observable entity) Other psoriatic arthropathy Diagnosis interpretation (observable en tity) Overweight Diagnosis interpretation (observable entity) Other psoriatic arthropathy Diagnosis interpretation (observable en tity) Other oysterman (current) drug therapy Diagnosis inter pretation (observable entity) Lumbago Diagnosis interpretation (observable entity) Other psoriatic arthropathy Diagnosis interpretation (observable en tity) Other long-term (current) drug therapy Diagnosis inter pretation (observable entity) Other psoriatic arthropathy Diagnosis interpretation (observable en tity) Other long-term (current) drug therapy Diagnosis inter pretation (observable entity) Other psoriatic arthropathy Diagnosis interpretation (observable en tity) Other long-term (current) drug therapy Diagnosis inter pretation (observable entity) Other psoriatic arthropathy Diagnosis interpretation (observable en tity) Other oysterman (current) drug therapy Diagnosis inter pretation (observable entity) Other long-term (current) drug therapy Diagnosis inter pretation (observable entity) Other psoriatic arthropathy Diagnosis interpretation (observable en tity) Other long-term (current) drug therapy Diagnosis inter pretation (observable entity) Encounter for screening for respiratory tuberculosis D iagnosis interpretation (observable entity) Other psoriatic arthropathy Diagnosis interpretation (observable en tity) Other oysterman (current) drug therapy Diagnosis inter pretation (observable entity) Other oysterman (current) drug therapy Diagnosis inter pretation (observable entity) Arthropathic psoriasis, unspecified Diagnosis interpre tation (observable entity) Other psoriatic arthropathy Diagnosis interpretation (observable en tity) Other oysterman (current) drug therapy Diagnosis inter pretation (observable entity) Other psoriatic arthropathy Diagnosis interpretation (observable en tity) Other long-term (current) drug therapy Diagnosis inter pretation (observable entity) Other psoriatic arthropathy Diagnosis interpretation (observable en tity) Other long-term (current) drug therapy Diagnosis inter pretation (observable entity) Arthropathic psoriasis, unspecified Diagnosis interpre tation (observable entity) Other long-term (current) drug therapy Diagnosis inter pretation (observable entity) Arthropathic psoriasis, unspecified Diagnosis interpre tation (observable entity) Other oysterman (current) drug therapy Diagnosis inter pretation (observable entity) Lumbago Diagnosis interpretation (observable entity) Arthropathic psoriasis, unspecified Diagnosis interpre tation (observable entity) Other oysterman (current) drug therapy Diagnosis inter pretation (observable [...] Providers Copied on Encounter [facility], [address] [place], [place], [id number], [place] tel:[phone] [facility] No Information Salty Silva. [address] [place] [address], [id number], [place]. tel:[phone] [facility], [address] [place] [address], [id number], [place] tel:[phone] [facility] Other psoriatic arthropathyOther long-term (current) drug therapyFibromyalgia Salty Silva. [address] [place], [place], [id number], [place]. tel:[phone] Specialist: Kristen Banks MD, [address] [place] [address], [address]. tel:[phone]: Isa BROTHERS, [address] [facility] [address], [place], [address]. tel:[phone] Provider: Evangelista Aragon DO, [address] , [place], [address]. tel:[phone] [facility], [address] [place] [address], [id number], [place] tel:[phone] [facility] Other psoriatic arthropathyOther oysterman (current) drug therapyFibromyalgiaPsoriasis, unspecified Xiang nation. [address] [place] [address], [id number], [place]. tel:[phone] Specialist: Kristen Banks MD, [address] [place] [address], [address]. tel:[phone]: Isa BROTHERS, [address] [facility] [address], [place], [address]. tel:[phone] Provider: Evangelista Aragon DO, [address], [place], [address]. tel:[phone] [facility], [address] [place] [address], [id number], [place] tel:[phone] [facility] Other psoriatic arthropathyOther oysterman (current) drug therapyFibromyalgiaPsoriasis, unspecified Vance-Jack Silva. [address] [place] [address], [id number], [place]. tel:[phone] Specialist: Kristen Banks MD, [address] [place] [address], [address]. tel:[phone]: Isa BROTHERS, [address] [facility] [address], [place], [address]. tel:[phone] Provider: Evangelista Aragon DO, [address] , [place], [address]. tel:[phone] [facility], [address] [place] [address], [id number], [place] tel:[phone] [facility] No Information Vance-Viktor Dentoni. [address] [place] [address], [id number], [place]. tel:[phone] [facility], [address] [place] [address], [id number], [place] tel:[phone] [facility] Other psoriatic arthropathyOther long-term (current) drug therapyFibromyalgia Vance-Viktor Shira. [address] [place], [place], [id number], [place]. tel:[phone] Specialist: Kristen Banks MD, [facility] [place], [address]. tel:[phone]: Isa BROTHERS, [address] [facility] [address], [place], [address]. tel:[phone] Provider: Evangelista Aragon DO, [address] [place], [address]. tel:[phone] [facility], [address] [place] [address], [id number], [place] tel:[phone] [facility] Other psoriatic arthropathyPsoriasis, unspecifiedOther oysterman (current) drug therapyFibromyalgia Vance-Viktor Shira. [address] [place], [place], [id number], [place]. tel:[phone] Specialist: Kristen Banks MD, [address] [place] [address], [address]. tel:[phone]: Isa BROTHERS, [address] [facility] [address], [place], [address]. tel:[phone] Referring Provider: Evangelista Aragon DO, [address] [place], [address]. tel:[phone] [facility], [address] [place] [address], [id number], [place] tel:[phone] [facility] No Information Xiang Lopes. [address] [place] [address], [id number], [place]. tel:[phone] [facility], [address] [place] [address], [id number], [place] tel:[phone] [facility] Other psoriatic arthropathyOther long-term (current) drug therapyPsoriasis, unspecifiedFibromyalgia Vance-Viktor Dentoni. [address] [place], [place], [id number], [place]. tel:[phone] Specialist: Kristen Banks MD, [address] [place] [address], [address]. tel:[phone]: Isa BROTHERS, [address] [facility] [address], [place], [address]. tel:[phone] Provider: Evangelista Aragon DO, [address] , [place], [address]. tel:[phone] [facility], [address] [place] [address], [id number], [place] tel:[phone] [facility] Other psoriatic arthropathyPsoriasisOther long-term (current) drug therapy Xiang Lopes. [address] [place] [address], [id number], [place]. tel:[phone] Specialist: Kristen Banks MD, [address] [place] [address], [address]. tel:[phone]: Isa BROTHERS, [address] [facility] [address], [place], [address]. tel:[phone] Provider: Evangelista Aragon DO, [address] , [place], [address]. tel:[phone] [facility], [address] [place] [address], [id number], [place] tel:[phone] [facility] Other psoriatic arthropathyPsoriasisLow back painOther long-term (current) drug therapy Salty Silva. [address] [place] [address], [id number], . tel:[phone] Specialist: Kristen Banks MD, [address] [place] [address], [address]. tel:[phone]: Isa BROTHERS, [address] [facility] [address], [place], [address]. tel:[phone] Provider: Evangelista Aragon DO, [address] , [place], [address]. tel:[phone] [facility], [address] [place] [address], [id number], [place] tel:[phone] [facility] Other psoriatic arthropathyOther long-term (current) drug therapyFatty (change of) liver, not elsewhere classifiedGeneralized osteoarthritis No Production Assembly Operator: Kristen Banks MD, [address] [place] [address], [address]. tel:[phone] Provider: Evangelista Aargon DO, [address] , [place], [address]. tel:[phone] [facility], [address] [place] [address], [id number], tel:[phone] [facility] Other psoriatic arthropathyOther oysterman (current) drug therapy Luisa Dentoni. [address] [place] [address], [id number], . tel:[phone] Specialist: Kristen Banks MD, [address] [place] [address], [address]. tel:[phone] Provider: Evangelista Aragon DO, [address] , [place], [address]. tel:[phone] [facility], [address] [place] [address], [id number], tel:[phone] [facility] Other psoriatic arthropathyOther oysterman (current) drug therapyFatty liver Salty Dentoni. [address] [place] [address], [id number], . tel:[phone] Specialist: Kristen Banks MD, [address] [place] [address], [address]. tel:[phone] Provider: Evangelista Aragon DO, [address] , [place], [address]. tel:[phone] [facility], [address] [place] [address], [id number], tel:[phone] [facility] Other psoriatic arthropathyOverweight Vance-Viktor Shira. [address] [place] [address] [place], [id number], [place]. tel:[phone] [facility], [address] [place] [address], [id number], [place] tel:[phone] [facility] Other psoriatic arthropathyOther oysterman (current) drug therapyLumbago Vance-Viktor Shira. [address] [place], [place], [id number], [place]. tel:[phone] Specialist: Kristen Banks MD, [address] [place] [address], [address]. tel:[phone] Provider: Evangelista Aragon DO, [address], [place], [address]. tel:[phone] [facility], [address] [place] [address], [id number], [place] tel:[phone] [facility] Other psoriatic arthropathyOther oysterman (current) drug therapy Vance- Viktor Shira. [address] [place], [place], [id number], [place]. tel:[phone] [facility], [address] [place] [address], [id number], [place] tel:[phone] [facility] Other psoriatic arthropathyOther long-term (current) drug therapyOverweight Vance-Viktor Shira. [address] [place] [address], [id number], [place]. tel:[phone] Specialist: Kristen Banks MD, [address] [place] [address], [address]. tel:[phone] Provider: Evangelista Aragon DO, [address] [place], [address]. tel:[phone] [facility], [address] [place] [address], [id number], [place] tel:[phone] [facility] Other psoriatic arthropathyOther long-term (current) drug therapy Vanceclary Dentoni. [address] [place] [address], [id number], [place]. tel:[phone] Specialist: Kristen Banks MD, [address] [place] [address], [address]. tel:[phone] Provider: Evangelista Aragon DO, [facility] [place], [address]. tel:[phone] [facility], [address] [place] [address], [id number], [place] tel:[phone] [facility] Other psoriatic arthropathyOther oysterman (current) drug therapy ClaytonAlfredo Viktor Shira. [address] [place] [address], [id number], [place]. tel:[phone] Specialist: Kristen Banks MD, [address] [place] [address], [address]. tel:[phone] Provider: Evangelista Aragon DO, [address] [place] [address], [address]. tel:[phone] [facility], [address] [place] [address], [id number], [place] tel:[phone] [facility] Other long-term (current) drug therapy ClaytonAlfredoViktor Shira. [address] [place] [address], [id number], [place]. tel:[phone] [facility], [address] [place] [address], [id number], [place] tel:[phone] [facility] Other psoriatic arthropathyOther long-term (current) drug therapy ClaytonAlfredo NewbyViktor Shira. [address] [place] [address], [id number], [place]. tel:[phone] Specialist: Kristen Banks MD, [address] [place] [address], [address]. tel:[phone] Provider: Evangelista Aragon DO, [address], [place], [address]. tel:[phone] [facility], [address] [place] [address], [id number], [place] tel:[phone] [facility] Encounter for screening for respiratory tuberculosis Vance-Viktor Shira. [address] [place] [address], [id number], [place]. tel:[phone] [facility], [address] [place] [address], [id number], [place] tel:[phone] [facility] Other psoriatic arthropathyOther long-term (current) drug therapy Vance- Viktor Shira. [address] [place] [address], [id number], [place]. tel:[phone] [facility], [address] [place] [address], [id number], [place] tel:[phone] [facility] Other long-term (current) drug therapyArthropathic psoriasis, unspecified Vance-Viktor Shira. [address] [place] [address], [id number], [place]. tel:[phone] [facility], [address] [place] [address], [id number], [place] tel:[phone] [facility] Other psoriatic arthropathyOther long-term (current) drug therapy Vance- Viktor Shira. [address] [place] [address], [id number], [place]. tel:[phone] Specialist: Kristen Banks MD, [address] [place], [address]. tel:[phone] Provider: Evangelista Aragon DO, [address], [place], [address]. tel:[phone] [facility], [address] [place] [address], [id number], [place] tel:[phone] [facility] Other psoriatic arthropathyOther oysterman (current) drug therapy Luisa Silva. [address] [place] [address], [id number], [place]. tel:[phone] Specialist: Kristen Banks MD, [address] [place] [address], [address]. tel:[phone] Provider: Evangelista Aragon DO, [facility] [address], [place], [address]. tel:[phone] [facility], [address] [place] [address], [id number], tel:[phone] [facility] Other psoriatic arthropathyOther oysterman (current) drug therapy Luisa Silva. [address] [place] [address], [id number], [place]. tel:[phone] Specialist: Kristen Banks MD, [address] [place] [address], [address]. tel:[phone] Provider: Evangelista Aragon DO, [address] [place] [address], [address]. tel:[phone] [facility], [address] [place] [address], [id number], [place] tel:[phone] [facility] Arthropathic psoriasis, unspecifiedOther oysterman (current) drug therapy Jj Duenasa. [address] [place] [address], [id number], [place]. tel:[phone] Specialist: Kristen Banks MD, [address] [place] [address], [address]. tel:[phone] Provider: Evangelista Aragon DO, [facility] [place], [address]. tel:[phone] [facility], [address] [place] [address], [id number], [place] tel:[phone] [facility] Arthropathic psoriasis, unspecifiedOther oysterman (current) drug therapyLumbago Salty Silva. [address] [place] [address], [id number], [place]. tel:[phone] Specialist: Kristen Banks MD, [address] [place] [address], [address]. tel:[phone] Provider: Evangelista Aragon DO, [address] , [place], [address]. tel:[phone] [facility], [address] [place] [address], [id number], tel:[phone] [facility] Arthropathic psoriasis, unspecifiedOther long-term (current) drug therapy McIlvblair Rodriguez. [address] [place] [address], [id number], [place]. tel:[phone] Specialist: Kristen Banks MD, [address] [place] [address], [address]. tel:[phone] Provider: Evangelista Aragon DO, [facility] [place], [address]. tel:[phone] [facility], [address] [place] [address], [id number], [place] tel:[phone] [facility] No Information Harmeet Rodriguez. [address] [place] [address], [id number], [place]. tel:[phone] Referring Provider: Evangelista Aragon DO, [facility] [address], [place], [address]. tel:[phone] [facility], [address] [place] [address], [id number], tel:[phone] [facility] No Information Jj Velasquez. [address] [place], [place], [id number], [place]. tel:[phone] Referring Provider: Evangelista Aragon DO, [address] [place] [address], [address]. tel:[phone] Family History Family Member Type Diagnosis Age [...] split virus, 4 years and older, Fluvirin [id number] administered Source: Other Provid er Influenza, split virus, injectable, 3 years and older Fluvirin [id number] administered Note: Invalid documented adm in date was . ; Source: Other Provider Never had Zoster administered Source: New Imm unization Record Influenza virus vaccine, Injection administered Source: Other Provider pneumo (2 yrs or older) (PPV23) administered Source: Other Provider Payers Payer name Insurance type Covered alliance party ID Authorization(s ) [facility] CI [id number] Social History Type Description Quantity Date Captured [...] Pt. not exposed to someone i n care home nor traveled out of the country; no concern for TB screening. Labs ordered to check disease activity. Call if symptoms return Labs ordered to check blood counts, liver and kidney functions to monitor safety of medication. Discussed / Reviewed Labs continue same medication plan call if symptoms worsen Risks/benefits of medications reviewed Weight reduction urged. Risks/benefits of medications reviewed Conservative medical care me asures discussed. Moderate activities regarding symptomatic joints. Labs ordered to check disease activity. Labs ordered to check blood counts, liver and kidney functions to monitor safety of medication. Discussed / Reviewed Labs Patient plan printed and given along wit h recommendations continue same medication plan call if symptoms [...] safety of medication. call if symptoms worsen continue same medication plan Giving encouragement to exercise Related to Overweight Avoid live vaccines Discussed importance of hold [...] if symptoms worsen Labs ordered to check blood counts, liver and kidney functions to monitor safety of medication. Daily range of motion exercises for symp tomatic joints recommended. continue same medication plan call if symptoms worsen Avoid live vaccines Discussed importance of hold ing DMARDs/ biologics if patient develops an infection and to notify the treating physician Labs ordered to check disease activity. Avoid live vaccines Discussed importance of hold ing DMARDs/ biologics if patient develops an infection and to notify the treating physician call if symptoms worsen Labs ordered to check disease activity. Labs ordered to check blood counts, liver and kidney functions to monitor safety of medication. Daily range of motion exercises for symp tomatic joints recommended. Avoid live vaccines Discussed importance of hold ing DMARDs/ biologics if patient develops an infection and to notify the treating physician Labs ordered to check disease activity. Labs ordered to check blood counts, liver and kidney functions to monitor safety of medication. Daily range of motion exercises for symp tomatic joints recommended. continue same medication plan call if symptoms worsen call if symptoms worsen continue same medication plan Daily range of motion exercises for symp tomatic joints recommended. Labs ordered to check blood counts, liver and kidney functions to monitor safety of medication. Labs ordered to check disease activity. Discussed importance of hold ing DMARDs/ biologics if patient develops an infection and to notify the treating physician Avoid live vaccines Discussed importance of hold [...]
--- OUTSIDE RECORDS SUMMARY | 2020-07-24 12:34 | CCD ---
Author Author [facility] Organization [facility] Address Unknown Phone Unavailable Care Team Providers Care Medical Surgical Tech Name Role Phone Janae Valdez Unavailable Unavailable José MiguelJanae kenney Unavailable Unavailable José MiguelJanae kenney Unavailable Unavailable José MiguelJanae kenney Unavailable Unavailable Janae Valdez Unavailable Unavailable José MiguelJanae kenney Unavailable Unavailable José MiguelJanae kenney Unavailable Unavailable Janae Valdez Unavailable Unavailable Janae Valdez Unavailable Unavailable José MiguelJanae kenney Unavailable Unavailable Janae Valdez Unavailable Unavailable Janae Valdez Unavailable Unavailable Janae Valdez Unavailable Unavailable Janae Valdez Unavailable Unavailable Janae Valdez Unavailable Unavailable Janae Valdez Unavailable Unavailable Janae Valdez Unavailable Unavailable José MiguelJanae kenney Unavailable Unavailable José MiguelJanae kenney Unavailable Unavailable José MiguelJanae kenney Unavailable Unavailable Janae Valdez Unavailable Unavailable José MiguelJanae kenney Unavailable Unavailable José MiguelJanae kenney Unavailable Unavailable José MiguelJanae kenney Unavailable Unavailable José MiguelJanae kenney Unavailable Unavailable José MiguelJanae kenney Unavailable Unavailable José Miguel, Jason MD Unavailable Unavailable José Miguel, Jason MD Unavailable Unavailable José Miguel, Jason MD Unavailable Unavailable José Miguel, Jason MD Unavailable Unavailable José Miguel, Jason MD Unavailable Unavailable José Miguel, Jason MD Unavailable Unavailable José Miguel, Jason MD Unavailable Unavailable José Miguel, Jason MD Unavailable Unavailable José Miguel, Jason MD Unavailable Unavailable José Miguel, Jason MD Unavailable Unavailable José Miguel, Jason MD Unavailable Unavailable José Miguel, Jason MD Unavailable Unavailable José Miguel, Jason MD Unavailable Unavailable José Miguel, Jason MD Unavailable Unavailable José Miguel, Jason MD Unavailable Unavailable José Miguel, Jason MD Unavailable Unavailable José Miguel, Jason MD Unavailable Unavailable José Miguel, Jason MD Unavailable Unavailable José Miguel, Jason MD Unavailable Unavailable José Miguel, Jason MD Unavailable Unavailable José Miguel, Jason MD Unavailable Unavailable José Miguel, Jason MD Unavailable Unavailable José Miguel, Jason MD Unavailable Unavailable José Miguel, Jason MD Unavailable Unavailable José Miguel, Jason MD Unavailable Unavailable José Miguel, Jason MD Unavailable Unavailable José Miguel, Jason MD Unavailable Unavailable José Miguel, Jason MD Unavailable Unavailable José Miguel, Jason MD Unavailable Unavailable José Miguel, Jason MD Unavailable Unavailable José Miguel, Jason MD Unavailable Unavailable José Miguel, Jason MD Unavailable Unavailable José Miguel, Jason MD Unavailable Unavailable José Miguel, Jason MD Unavailable Unavailable José Miguel, Jason MD Unavailable Unavailable José Miguel, Jason MD Unavailable Unavailable José Miguel, Jason MD Unavailable Unavailable SYMENOW, G CHRISTOPHER PA Unavailable Unavailable SYMENOW, G CHRISTOPHER PA Unavailable Unavailable SYMENOW, G CHRISTOPHER PA Unavailable Unavailable SYMENOW, G CHRISTOPHER PA Unavailable Unavailable SYMENOW, G CHRISTOPHER PA Unavailable Unavailable SYMENOW, G CHRISTOPHER PA Unavailable Unavailable SYMENOW, G CHRISTOPHER PA Unavailable Unavailable SYMENOW, G CHRISTOPHER PA Unavailable Unavailable SYMENOW, G CHRISTOPHER PA Unavailable Unavailable SYMENOW, G CHRISTOPHER PA Unavailable Unavailable SYMENOW, G CHRISTOPHER PA Unavailable Unavailable SYMENOW, G CHRISTOPHER PA Unavailable Unavailable SYMENOW, G CHRISTOPHER PA Unavailable Unavailable SYMENOW, G CHRISTOPHER PA Unavailable Unavailable SYMENOW, G CHRISTOPHER PA Unavailable Unavailable SYMENOW, G CHRISTOPHER PA Unavailable Unavailable SYMENOW, G CHRISTOPHER PA Unavailable Unavailable Kristen Horn ASSEMBLING FABRICATOR Unavailable Unavailable Kristen Horn ASSEMBLING FABRICATOR Unavailable Unavailable Alberry, D Sharee ASSEMBLING FABRICATOR Unavailable Unavailable Alberry, D Sharee ASSEMBLING FABRICATOR Unavailable Unavailable Alberry, D Sharee ASSEMBLING FABRICATOR Unavailable Unavailable Alberry, D Sharee ASSEMBLING FABRICATOR Unavailable Unavailable Alberry, D Sharee ASSEMBLING FABRICATOR Unavailable Unavailable Alberry, D Sharee ASSEMBLING FABRICATOR Unavailable Unavailable Alberry, D Sharee ASSEMBLING FABRICATOR Unavailable Unavailable Alberry, D Sharee ASSEMBLING FABRICATOR Unavailable Unavailable Alberry, D Sharee ASSEMBLING FABRICATOR Unavailable Unavailable Alberry, D Sharee ASSEMBLING FABRICATOR Unavailable Unavailable Alberry, D Sharee ASSEMBLING FABRICATOR Unavailable Unavailable Alberry, D Sharee ASSEMBLING FABRICATOR Unavailable Unavailable Alberry, D Sharee ASSEMBLING FABRICATOR Unavailable Unavailable Alberry, D Sharee ASSEMBLING FABRICATOR Unavailable Unavailable Alberry, D Sharee ASSEMBLING FABRICATOR Unavailable Unavailable Alberry, D Sharee ASSEMBLING FABRICATOR Unavailable Unavailable Alberry, D Sharee ASSEMBLING FABRICATOR Unavailable Unavailable Alberry, D Sharee ASSEMBLING FABRICATOR Unavailable Unavailable Alberry, D Sharee ASSEMBLING FABRICATOR Unavailable Unavailable Alberry, D Sharee ASSEMBLING FABRICATOR Unavailable Unavailable Alberry, D Sharee ASSEMBLING FABRICATOR Unavailable Unavailable Alberry, D Sharee ASSEMBLING FABRICATOR Unavailable Unavailable Alberry, D Sharee ASSEMBLING FABRICATOR Unavailable Unavailable Alberry, D Sharee ASSEMBLING FABRICATOR Unavailable Unavailable Alberry, D Sharee ASSEMBLING FABRICATOR Unavailable Unavailable Alberry, D Sharee ASSEMBLING FABRICATOR Unavailable Unavailable Alberry, D Sharee ASSEMBLING FABRICATOR Unavailable Unavailable Alberry, D Sharee ASSEMBLING FABRICATOR Unavailable Unavailable Alberry, D Sharee ASSEMBLING FABRICATOR Unavailable Unavailable Alberry, D Sharee ASSEMBLING FABRICATOR Unavailable Unavailable Alberry, D Sharee ASSEMBLING FABRICATOR Unavailable Unavailable Alberry, D Sharee ASSEMBLING FABRICATOR Unavailable Unavailable Alberry, D Sharee ASSEMBLING FABRICATOR Unavailable Unavailable Alberry, D Sharee ASSEMBLING FABRICATOR Unavailable Unavailable Alberry, D Sharee ASSEMBLING FABRICATOR Unavailable Unavailable Alberry, D Sharee ASSEMBLING FABRICATOR Unavailable Unavailable Alberry, D Sharee ASSEMBLING FABRICATOR Unavailable Unavailable Alberry, D Sharee ASSEMBLING FABRICATOR Unavailable Unavailable Alberry, D Sharee ASSEMBLING FABRICATOR Unavailable Unavailable Alberry, D Sharee ASSEMBLING FABRICATOR Unavailable Unavailable Alberry, D Sharee ASSEMBLING FABRICATOR Unavailable Unavailable Alberry, D Sharee ASSEMBLING FABRICATOR Unavailable Unavailable Alberry, D Sharee ASSEMBLING FABRICATOR Unavailable Unavailable Alberry, D Sharee ASSEMBLING FABRICATOR Unavailable Unavailable Alberry, D Sharee ASSEMBLING FABRICATOR Unavailable Unavailable Alberry, D Sharee ASSEMBLING FABRICATOR Unavailable Unavailable Jepma, W Evangelista DO Unavailable Unavailable Jepma, W Evangelista DO Unavailable Unavailable Jepma, W Evangelista DO Unavailable Unavailable Jepma, W Evangelista DO Unavailable Unavailable Jepma, W Evangelista DO Unavailable Unavailable Jepma, W Evangelista DO Unavailable Unavailable Jepma, W Evangelista DO Unavailable Unavailable Jepma, W Evangelista DO Unavailable Unavailable Jepma, W Evangelista DO Unavailable Unavailable Jepma, W Evangelista DO Unavailable Unavailable Jepma, W Evangelista DO Unavailable Unavailable Jepma, W Evangelista DO Unavailable Unavailable Jepma, W Evangelista DO Unavailable Unavailable Jepma, W Evangelista DO Unavailable Unavailable Jepma, W Evangelista DO Unavailable Unavailable Jepma, W Evangelista DO Unavailable Unavailable Jepma, W Evangelista DO Unavailable Unavailable Jepma, W Evangelista DO Unavailable Unavailable Jepma, W Evangelista DO Unavailable Unavailable Jepma, W Evangelista DO Unavailable Unavailable Jepma, W Evangelista DO Unavailable Unavailable Jepma, W Evangelista DO Unavailable Unavailable Jepma, W Evangelista DO Unavailable Unavailable Jepma, W Evangelista DO Unavailable Unavailable Jepma, W Evangelista DO Unavailable Unavailable Jepma, W Evangelista DO Unavailable Unavailable Jepma, W Evangelista DO Unavailable Unavailable Jepma, W Evangelista DO Unavailable Unavailable Jepma, W Evangelista DO Unavailable Unavailable Jepma, W Evangelista DO Unavailable Unavailable Jepma, W Evangelista DO Unavailable Unavailable Jepma, W Evangelista DO Unavailable Unavailable Jepma, W Evangelista DO Unavailable Unavailable Jepma, W Evangelista DO Unavailable Unavailable Jepma, W Evangelista DO Unavailable Unavailable Jepma, W Evangelista DO Unavailable Unavailable Jepma, W Evangelista DO Unavailable Unavailable Jepma, W Evangelista DO Unavailable Unavailable Jepma, W Evangelista DO Unavailable Unavailable Jepma, W Evangelista DO Unavailable Unavailable Jepma, W Evangelista DO Unavailable Unavailable Jepma, W Evangelista DO Unavailable Unavailable Jepma, W Evangelista DO Unavailable Unavailable Jepma, W Evangelista DO Unavailable Unavailable Jepma, W Evangelista DO Unavailable Unavailable Jepma, W Evangelista DO Unavailable Unavailable Jepma, W Evangelista DO Unavailable Unavailable Jepma, W Evangelista DO Unavailable Unavailable Jepma, W Evangelista DO Unavailable Unavailable Jepma, W Evangelista DO Unavailable Unavailable Jepma, W Evangelista DO Unavailable Unavailable Jepma, W Evangelista DO Unavailable Unavailable Jepma, W Evangelista DO Unavailable Unavailable Jepma, W Evangelista DO Unavailable Unavailable Jepma, W Evangelista DO Unavailable Unavailable Jepma, W Evangelista DO Unavailable Unavailable Jepma, W Evangelista DO Unavailable Unavailable Jepma, W Evangelista DO Unavailable Unavailable Jepma, W Evangelista DO Unavailable Unavailable Marlin Oconnor Dorene ED PHYSICIANS Unavailable Unavailable Oconnor, R Dorene ED PHYSICIANS Unavailable Unavailable Oconnor, R Dorene ED PHYSICIANS Unavailable Unavailable Oconnor, R Dorene ED PHYSICIANS Unavailable Unavailable Oconnor, R Dorene ED PHYSICIANS Unavailable Unavailable Oconnor, R Dorene ED PHYSICIANS Unavailable Unavailable Oconnor, R Dorene ED PHYSICIANS Unavailable Unavailable Oconnor, R Dorene ED PHYSICIANS Unavailable Unavailable Oconnor, R Dorene ED PHYSICIANS Unavailable Unavailable Oconnor, R Dorene ED PHYSICIANS Unavailable Unavailable Oconnor, R Dorene ED PHYSICIANS Unavailable Unavailable Oconnor, R Dorene ED PHYSICIANS Unavailable Unavailable Oconnor, R Dorene ED PHYSICIANS Unavailable Unavailable Oconnor, R Dorene ED PHYSICIANS Unavailable Unavailable Oconnor, R Dorene ED PHYSICIANS Unavailable Unavailable Oconnor, R Dorene ED PHYSICIANS Unavailable Unavailable Oconnor, R Dorene ED PHYSICIANS Unavailable Unavailable Oconnor, R Dorene ED PHYSICIANS Unavailable Unavailable Oconnor, R Dorene ED PHYSICIANS Unavailable Unavailable Oconnor, R Dorene ED PHYSICIANS Unavailable Unavailable Oconnor, R Dorene ED PHYSICIANS Unavailable Unavailable Oconnor, R Dorene ED PHYSICIANS Unavailable Unavailable Oconnor, R Dorene ED PHYSICIANS Unavailable Unavailable Oconnor, R Dorene ED PHYSICIANS Unavailable Unavailable Oconnor, R Dorene ED PHYSICIANS Unavailable Unavailable Oconnor, R Dorene ED PHYSICIANS Unavailable Unavailable Oconnor, R Dorene ED PHYSICIANS Unavailable Unavailable Oconnor, R Dorene ED PHYSICIANS Unavailable Unavailable Oconnor, R Dorene ED PHYSICIANS Unavailable Unavailable Oconnor, R Dorene ED PHYSICIANS Unavailable Unavailable Oconnor, R Dorene ED PHYSICIANS Unavailable Unavailable Oconnor, R Dorene ED PHYSICIANS Unavailable Unavailable Aldair Bolivar MD Unavailable Unavailable Aldair Bolivar MD Unavailable Unavailable Aldair Bolivar MD Unavailable Unavailable Aldair Bolivar MD Unavailable Unavailable Aldair Bolivar MD Unavailable Unavailable Aldair Bolivar MD Unavailable Unavailable Aldair Bolivar MD Unavailable Unavailable Aldair Bolivar MD Unavailable Unavailable Aldair Bolivar MD Unavailable Unavailable Aldair Bolivar MD Unavailable Unavailable Aldair Bolivar MD Unavailable Unavailable Aldair Bolivar MD Unavailable Unavailable Aldair Bolivar MD Unavailable Unavailable Aldair Bolivar MD Unavailable Unavailable Aldair Bolivar MD Unavailable Unavailable Aldair Bolivar MD Unavailable Unavailable Aldair Bolivar MD Unavailable Unavailable Aldair Bolivar MD Unavailable Unavailable Aldair Bolivar MD Unavailable Unavailable Aldair Bolivar MD Unavailable Unavailable Aldair Bolivar MD Unavailable Unavailable Aldair Bolivar MD Unavailable Unavailable Aldair Bolivar MD Unavailable Unavailable Bogosian, Aldair Nash MD Unavailable Unavailable Bogosian, Aldair Nash MD Unavailable Unavailable Bogosian, Aldair Nash MD Unavailable Unavailable Bogosian, Aldair Nash MD Unavailable Unavailable Bogosian, Aldair Nash MD Unavailable Unavailable Bogosian, Aldair Nash MD Unavailable Unavailable Bogosian, Aldair Nash MD Unavailable Unavailable Bogosian, Aldair Nash MD Unavailable Unavailable Bogosian, Aldair Nash MD Unavailable Unavailable Bogosian, Aldair Nash MD Unavailable Unavailable Bogosian, Aldair Nash MD Unavailable Unavailable Bogosian, Aldair Nash MD Unavailable Unavailable Bogosian, Aldair Nash MD Unavailable Unavailable Bogosian, Aldair Nash MD Unavailable Unavailable Bogosian, Aldair Nash MD Unavailable Unavailable Bogosian, Aldair Nash MD Unavailable Unavailable Bogosian, Aldair Nash MD Unavailable Unavailable Bogosian, Aldair Nash MD Unavailable Unavailable Bogosian, Aldair Nash MD Unavailable Unavailable Bogosian, Aldair Nash MD Unavailable Unavailable Bogosian, Aldair Nash MD Unavailable Unavailable Bogosian, Aldair Nash MD Unavailable Unavailable Bogosian, Aldair Nash MD Unavailable Unavailable Bogosian, Aldair Nash MD Unavailable Unavailable Bogosian, Aldair Nash MD Unavailable Unavailable Bogosian, Aldair Nash MD Unavailable Unavailable Bogosian, Aldair Nash MD Unavailable Unavailable Bogosian, Aldair Nash MD Unavailable Unavailable Bogosian, Aldair Nash MD Unavailable Unavailable Bogosian, Aldair Nash MD Unavailable Unavailable Bogosian, Aldair Nash MD Unavailable Unavailable Bogosian, Aldair Nash MD Unavailable Unavailable Bogosichapito, Aldair Nash MD Unavailable Unavailable Bogosian, Aldair Nash MD Unavailable Unavailable Bogosian, Aldair Nash MD Unavailable Unavailable Bogosian, Aldair Nash MD Unavailable Unavailable Bogosichapito, Aldair Nash MD Unavailable Unavailable Bogosichapito, Aldair Nash MD Unavailable Unavailable Bogosichapito, Aldair Nash MD Unavailable Unavailable Bogosichapito, Aldair Nash MD Unavailable Unavailable Bogosian, Aldair Nash MD Unavailable Unavailable Bogosian, Aldair Nash MD Unavailable Unavailable Bogosian, Aldair Nash MD Unavailable Unavailable Bogosichapito, Aldair Nash MD Unavailable Unavailable Bogosichapito, Aldair Nash MD Unavailable Unavailable Bogestefani, Aldair Nash MD Unavailable Unavailable Bogosichapito, Aldair Nash MD Unavailable Unavailable Bogosian, Aldair Nash MD Unavailable Unavailable Bogosian, Aldair Nash MD Unavailable Unavailable Bogosian, Aldair Nash MD Unavailable Unavailable Bogosian, P Saad MD Unavailable Unavailable Aldair Bolivar MD Unavailable Unavailable Aldair Bolivar MD Unavailable Unavailable Aldair Bolivar MD Unavailable Unavailable Lacho Ashby MD Unavailable Unavailable Lacho Ashby MD Unavailable Unavailable Lacho Ashby MD Unavailable Unavailable Lacho Ashby MD Unavailable Unavailable Lacho Ashby MD Unavailable Unavailable Lacho Ashby MD Unavailable Unavailable Lacho Ashby MD Unavailable Unavailable Lacho Ashby MD Unavailable Unavailable Lacho Ashby MD Unavailable Unavailable Lacho Ashby MD Unavailable Unavailable Lacho Ashby MD Unavailable Unavailable Lacho Ashby MD Unavailable Unavailable Lacho Ashby MD Unavailable Unavailable Lacho Ashby MD Unavailable Unavailable Lacho Ashby MD Unavailable Unavailable Lacho Ashby MD Unavailable Unavailable Lacho Ashby MD Unavailable Unavailable Lacho Ashby MD Unavailable Unavailable Lacho Ashby MD Unavailable Unavailable Lacho Ashby MD Unavailable Unavailable Lacho Ashby MD Unavailable Unavailable Lacho Ashby MD Unavailable Unavailable Lacho Ashby MD Unavailable Unavailable Lacho Ashby MD Unavailable Unavailable Lacho Ashby MD Unavailable Unavailable Lacho Ashby MD Unavailable Unavailable Lacho Ashby MD Unavailable Unavailable Lacho Ashby MD Unavailable Unavailable Lacho Ashby MD Unavailable Unavailable Lacho Ashby MD Unavailable Unavailable Lacho Ashby MD Unavailable Unavailable Lacho Ashby MD Unavailable Unavailable Lacho Ashby MD Unavailable Unavailable Lacho Ashby MD Unavailable Unavailable Lacho Ashby MD Unavailable Unavailable Lacho Ashby MD Unavailable Unavailable Lacho Ashby MD Unavailable Unavailable Lacho Ashby MD Unavailable Unavailable Lacho Ashby MD Unavailable Unavailable Lacho Ashby MD Unavailable Unavailable Lacho Ashby MD Unavailable Unavailable Lacho Ashby MD Unavailable Unavailable Lacho Ashby MD Unavailable Unavailable Lacho Ashby MD Unavailable Unavailable Lacho Ashby MD Unavailable Unavailable Lacho Ashby MD Unavailable Unavailable Lacho Ashby MD Unavailable Unavailable Lacho Ashby MD Unavailable Unavailable Lacho Ashby MD Unavailable Unavailable Lacho Ashby MD Unavailable Unavailable Lacho Ashby MD Unavailable Unavailable Lacho Ashby MD Unavailable Unavailable Lacho Ashby MD Unavailable Unavailable Lacho Ashby MD Unavailable Unavailable Lacho Ashby MD Unavailable Unavailable Lacho Ashby MD Unavailable Unavailable Lacho sAhby MD Unavailable Unavailable Lacho Ashby MD Unavailable Unavailable Lacho Ashby MD Unavailable Unavailable Lacho Ashby MD Unavailable Unavailable Lacho Ashby MD Unavailable Unavailable Lacho Ashby MD Unavailable Unavailable Lacho Ashby MD Unavailable Unavailable Lacho Ashby MD Unavailable Unavailable Lacho Ashby MD Unavailable Unavailable Lacho Ashby MD Unavailable Unavailable Lacho Ashby MD Unavailable Unavailable Lacho Ashby MD Unavailable Unavailable Lacho Ashby MD Unavailable Unavailable Lacho Ashby MD Unavailable Unavailable Lacho Ashby MD Unavailable Unavailable Lacho Ashby MD Unavailable Unavailable Lacho Ashby MD Unavailable Unavailable NIKHIL PRADO PA Unavailable Unavailable NIKIHL PRADO PA Unavailable Unavailable NIKHIL PRADO PA Unavailable Unavailable NIKHIL PRADO PA Unavailable Unavailable JOHANNIKHIL TUBBS ИВАН PA Unavailable Unavailable NIKHIL PRADO PA Unavailable Unavailable NIKHIL PRADO PA Unavailable Unavailable JOHAN, NIKHIL ИВАН PA Unavailable Unavailable JOHAN, NIKHIL ИВАН PA Unavailable Unavailable JOHAN, NIKHIL ИВАН PA Unavailable Unavailable JOHAN, NIKHIL ИВАН PA Unavailable Unavailable JOHAN, NIKHIL ИВАН PA Unavailable Unavailable JOHAN, NIKHIL ИВАН PA Unavailable Unavailable JOHAN, NIKHIL ИВАН PA Unavailable Unavailable JOHAN, NIKHIL ИВАН PA Unavailable Unavailable JOHAN, NIKHIL ИВАН PA Unavailable Unavailable JOHAN, NIKHIL ИВАН PA Unavailable Unavailable JOHAN, NIKHIL ИВАН PA Unavailable Unavailable JOHAN, NIKHIL ИВАН PA Unavailable Unavailable JOHAN, NIKHIL ИВАН PA Unavailable Unavailable JOHAN, NIKHIL ИВАН PA Unavailable Unavailable REINDL, KATHY SOTO Unavailable Unavailable REINDL, KATHY SOTO Unavailable Unavailable REINDL, KATHY SOTO Unavailable Unavailable REINDL, KATHY SOTO Unavailable Unavailable REINDL, KATHY SOTO Unavailable Unavailable REINDL, KATHY SOTO Unavailable Unavailable REINDL, KATHY SOTO Unavailable Unavailable REINDL, KATHY SOTO Unavailable Unavailable REINDL, KATHY SOTO Unavailable Unavailable REINDL, KATHY SOTO Unavailable Unavailable REINDL, KATHY SOTO Unavailable Unavailable REINDL, KATHY SOTO Unavailable Unavailable REINDL, KATHY SOTO Unavailable Unavailable REINDL, KATHY SOTO Unavailable Unavailable REINDL, KATHY SOTO Unavailable Unavailable REINDL, KATHY SOTO Unavailable Unavailable REINDL, KATHY SOTO Unavailable Unavailable REINDL, KATHY SOTO Unavailable Unavailable REINDL, KATHY SOTO Unavailable Unavailable REINDL, KATHY SOTO Unavailable Unavailable REINDL, KATHY SOTO Unavailable Unavailable REINDL, KATHY SOTO Unavailable Unavailable REINDL, KATHY SOTO Unavailable Unavailable REINDL, KATHY SOTO Unavailable Unavailable REINDL, KATHY SOTO Unavailable Unavailable REINDL, KATHY SOTO Unavailable Unavailable REINDL, KATHY SOTO Unavailable Unavailable REINDL, KATHY SOTO Unavailable Unavailable REINDL, KATHY SOTO Unavailable Unavailable REINDL, KATHY SOTO Unavailable Unavailable REINDL, KATHY SOTO Unavailable Unavailable REINDL, KATHY SOTO Unavailable Unavailable REINDL, KATHY SOTO Unavailable Unavailable REINDL, KATHY SOTO Unavailable Unavailable REINDL, KATHY SOTO Unavailable Unavailable REINDL, KATHY SOTO Unavailable Unavailable REINDL, KATHY SOTO Unavailable Unavailable REINDL, KATHY SOTO Unavailable Unavailable REINDL, KATHY SOTO Unavailable Unavailable REINDL, KATHY SOTO Unavailable Unavailable REINDL, KATHY SOTO Unavailable Unavailable REINDL, KATHY SOTO Unavailable Unavailable REINDL, KATHY SOTO Unavailable Unavailable REINDL, KATHY SOTO Unavailable Unavailable Krsiten PRITCHARDON DO Unavailable Unavailable JAMESIZENGKristen Bledsoe WILBUR DO Unavailable Unavailable HUIZENGKristen Bledsoe WILBUR DO Unavailable Unavailable HUIZENGA, D WILBUR DO Unavailable Unavailable HUIZENGA, Kristen BOWLES DO Unavailable Unavailable HUIZENGA, Kristen BOWLES DO Unavailable Unavailable HUIZENGA, Kristen BOWLES DO Unavailable Unavailable HUIZENGA, Kristen BOWLES DO Unavailable Unavailable HUIZENGA, Kristen BOWLES DO Unavailable Unavailable HUIZENGA, Kristen BOWLES DO Unavailable Unavailable HUIZENGA, Kristen BOWLES DO Unavailable Unavailable HUIZENGA, Kristen BOWLES DO Unavailable Unavailable HUIZENGA, Kristen BOWLES DO Unavailable Unavailable HUIZENGA, Kristen BOWLES DO Unavailable Unavailable HUIZENGA, Kristen BOLWES DO Unavailable Unavailable HUIZENGA, Kristen BOWLES DO Unavailable Unavailable HUIZENGA, Kristen BOWLES DO Unavailable Unavailable HUIZENGA, Kristen BOWLES DO Unavailable Unavailable HUIZENGA, Kristen BOWLES DO Unavailable Unavailable HUIZENGA, Kristen BOWLES DO Unavailable Unavailable HUIZENGA, Kristen BOWLES DO Unavailable Unavailable HUIZENGA, Kristen BOWLES DO Unavailable Unavailable HUIZENGA, Kristen BOWLES DO Unavailable Unavailable HUIZENGA, Kristen OBWLES DO Unavailable Unavailable HUIZENGA, Kristen BOWLES DO Unavailable Unavailable HUIZENGA, Kristen BOWLES DO Unavailable Unavailable HUIZENGA, Kristen BOWLES DO Unavailable Unavailable HUIZENGA, Kristen BOWLES DO Unavailable Unavailable HUIZENGA, Kristen BOWLES DO Unavailable Unavailable HUIZENGA, Kristen BOWLES DO Unavailable Unavailable HUIZENGA, Kristen BOWLES DO Unavailable Unavailable HUIZENGA, Kristen BOWLES DO Unavailable Unavailable HUIZENGA, Kristen BOWLES DO Unavailable Unavailable HUIZENGA, Kristen BOWLES DO Unavailable Unavailable HUIZENGA, Kristen BOWLES DO Unavailable Unavailable HUIZENGA, Kristne BOWLES DO Unavailable Unavailable HUIZENGA, Kristen BOWLES DO Unavailable Unavailable HUIZENGA, Kristen BOWLES DO Unavailable Unavailable HUIZENGA, Kristen BOWLES DO Unavailable Unavailable HUIZENGA, Kristen BOWLES DO Unavailable Unavailable HUIZENGA, Kristen BOWLES DO Unavailable Unavailable HUIZENGA, Kristen BOWLES DO Unavailable Unavailable HUIZENGA, Kristen BOWLES DO Unavailable Unavailable HUIZENGA, Kristen BOWLES DO Unavailable Unavailable HUIZENGA, Kristen BOWLES DO Unavailable Unavailable HUIZENGA, Kristen BOWLES DO Unavailable Unavailable HUIZENGA, Kristen BOWLES DO Unavailable Unavailable HUIZENGA, Kristen BOWLES DO Unavailable Unavailable HUIZENGA, Kristen BOWLES DO Unavailable Unavailable HUIZENGA, D WILBUR DO Unavailable Unavailable HUIZENGA, D WILBUR DO Unavailable Unavailable HUIZENGA, D WILBUR DO Unavailable Unavailable HUIZENGA, D WILBUR DO Unavailable Unavailable HUIZENGA, D WILBUR DO Unavailable Unavailable HUIZENGA, D WILBUR DO Unavailable Unavailable HUIZENGA, D WILBUR DO Unavailable Unavailable HUIZENGA, Kristen ANDERSONON DO Unavailable Unavailable HUIZENGA, D WILBUR DO Unavailable Unavailable HUIZENGA, D WILBUR DO Unavailable Unavailable HUIZENGA, D WILBUR DO Unavailable Unavailable HUIZENGA, D WILBUR DO Unavailable Unavailable HUIZENGA, D WILBUR DO Unavailable Unavailable HUIZENGA, D WILBUR DO Unavailable Unavailable HUIZENGA, Kristen ANDERSONON DO Unavailable Unavailable HUIZENGA, Kristen ANDERSONON DO Unavailable Unavailable HUIZENGA, Kristen BOWLES DO Unavailable Unavailable HUIZENGA, Kristen BOWLES DO Unavailable Unavailable HUIZENGA, Kristen BOWLES DO Unavailable Unavailable HUIZENGA, Kristen BOWLES DO Unavailable Unavailable HUIZENGA, Kristen BOWLES DO Unavailable Unavailable HUIZENGA, Kristen BOWLES DO Unavailable Unavailable HUIZENGA, Kristen BOWLES DO Unavailable Unavailable HUIZENGA, Kristen BOWLES DO Unavailable Unavailable ALBERT WINTER MD Unavailable Unavailable ALBERT WINTER MD Unavailable Unavailable ALBERT WINTER MD Unavailable Unavailable ALBERT WINTER MD Unavailable Unavailable ALBERT WITNER MD Unavailable Unavailable ALBERT WINTER MD Unavailable Unavailable ALEBRT WINTER MD Unavailable Unavailable ALBERT WINTER MD Unavailable Unavailable ALBERT WINTER MD Unavailable Unavailable ALBERT WINTER MD Unavailable Unavailable ALBERT WINTER MD Unavailable Unavailable ALBERT WINTER MD Unavailable Unavailable ALBERT WINTER MD Unavailable Unavailable ALBERT WINTER MD Unavailable Unavailable ALBERT WINTER MD Unavailable Unavailable ALBERT WINTER MD Unavailable Unavailable ALBERT WINTER MD Unavailable Unavailable ALBERT WINTER MD Unavailable Unavailable ALBERT WINTER MD Unavailable Unavailable ALBERT WINTER MD Unavailable Unavailable ALBERT WINTER MD Unavailable Unavailable ALBERT WINTER MD Unavailable Unavailable ALBERT WINTER MD Unavailable Unavailable KHAIRALLAH, RAMZI MD Unavailable Unavailable KHAIRALLAH, RAMZI MD Unavailable Unavailable KHAIRALLAH, RAMZI MD Unavailable Unavailable KHAIRALLAH, RAMZI MD Unavailable Unavailable KHAIRALLAH, RAMZI MD Unavailable Unavailable KHAIRALLAH, RAMZI MD Unavailable Unavailable KHAIRALLAH, RAMZI MD Unavailable Unavailable KHAIRALLAH, RAMZI MD Unavailable Unavailable KHAIRALLAH, RAMZI MD Unavailable Unavailable KHAIRALLAH, RAMZI MD Unavailable Unavailable KHAIRALLAH, RAMZI MD Unavailable Unavailable KHAIRALLAH, RAMZI MD Unavailable Unavailable KHAIRALLAH, RAMZI MD Unavailable Unavailable KHAIRALLAH, RAMZI MD Unavailable Unavailable KHAIRALLAH, RAMZI MD Unavailable Unavailable KHAIRALLAH, RAMZI MD Unavailable Unavailable KHAIRALLAH, RAMZI MD Unavailable Unavailable KHAIRALLAH, RAMZI MD Unavailable Unavailable KHAIRALLAH, RAMZI MD Unavailable Unavailable KHAIRALLAH, RAMZI MD Unavailable Unavailable KHAIRALLAH, RAMZI MD Unavailable Unavailable KHAIRALLAH, RAMZI MD Unavailable Unavailable KHAIRALLAH, RAMZI MD Unavailable Unavailable KHAIRALLAH, RAMZI MD Unavailable Unavailable KHAIRALLAH, RAMZI MD Unavailable Unavailable KHAIRALLAH, RAMZI MD Unavailable Unavailable KHAIRALLAH, RAMZI MD Unavailable Unavailable KHAIRALLAH, RAMZI MD Unavailable Unavailable KHAIRALLAH, RAMZI MD Unavailable Unavailable KHAIRALLAH, RAMZI MD Unavailable Unavailable KHAIRALLAH, RAMZI MD Unavailable Unavailable KHAIRALLAH, RAMZI MD Unavailable Unavailable KHAIRALLAH, RAMZI MD Unavailable Unavailable KHAIRALLAH, RAMZI MD Unavailable Unavailable KHAIRALLAH, RAMZI MD Unavailable Unavailable KHAIRALLAH, RAMZI MD Unavailable Unavailable KHAIRALLAH, RAMZI MD Unavailable Unavailable KHAIRALLAH, RAMZI MD Unavailable Unavailable KHAIRALLAH, RAMZI MD Unavailable Unavailable KHAIRALLAH, RAMZI MD Unavailable Unavailable KHAIRALLAH, RAMZI MD Unavailable Unavailable KHAIRALLAH, RAMZI MD Unavailable Unavailable KHAIRALLAH, RAMZI MD Unavailable Unavailable KHAIRALLAH, RAMZI MD Unavailable Unavailable KHAIRALLAH, RAMZI MD Unavailable Unavailable KHAIRALLAH, RAMZI MD Unavailable Unavailable KHAIRALLAH, RAMZI MD Unavailable Unavailable KHAIRALLAH, RAMZI MD Unavailable Unavailable KHAIRALLAH, RAMZI MD Unavailable Unavailable KHAIRALLAH, RAMZI MD Unavailable Unavailable KHAIRALLAH, RAMZI MD Unavailable Unavailable KHAIRALLAH, ALBERT SOTO Unavailable Unavailable ALBERT WINTER MD Unavailable Unavailable MAGGY, ALBERT SOTO Unavailable Unavailable MAGGY, ALBERT SOTO Unavailable Unavailable MAGGY, ALBERT SOTO Unavailable Unavailable MAGGY, ALBERT SOTO Unavailable Unavailable MAGGY, ALBERT SOTO Unavailable Unavailable MAGGY, ALBERT SOTO Unavailable Unavailable ALBERT WINTER MD Unavailable Unavailable ALBERT WINTER MD Unavailable Unavailable MAGGY, ALBERT SOTO Unavailable Unavailable MAGGY, ALBERT SOTO Unavailable Unavailable Pikarsky, Moses ED PHYSICIANS Unavailable Unavailable Pikarsky, Moses ED PHYSICIANS Unavailable Unavailable Pikarsky, Moses ED PHYSICIANS Unavailable Unavailable Pikarsky, Moses ED PHYSICIANS Unavailable Unavailable Pikarsky, Moses ED PHYSICIANS Unavailable Unavailable Pikarsky, Moses ED PHYSICIANS Unavailable Unavailable Pikarsky, Moses ED PHYSICIANS Unavailable Unavailable Pikarsky, Moses ED PHYSICIANS Unavailable Unavailable Pikarsky, Moses ED PHYSICIANS Unavailable Unavailable Pikarsky, Moses ED PHYSICIANS Unavailable Unavailable Pikarsky, Moses ED PHYSICIANS Unavailable Unavailable Pikarsky, Moses ED PHYSICIANS Unavailable Unavailable Pikarsky, Moses ED PHYSICIANS Unavailable Unavailable Pikarsky, Moses ED PHYSICIANS Unavailable Unavailable Pikarsky, Moses ED PHYSICIANS Unavailable Unavailable Pikarsky, Moses ED PHYSICIANS Unavailable Unavailable Pikarsky, Moses ED PHYSICIANS Unavailable Unavailable Pikarsky, Moses ED PHYSICIANS Unavailable Unavailable Pikarsky, Moses ED PHYSICIANS Unavailable Unavailable Pikarsky, Moses ED PHYSICIANS Unavailable Unavailable Pikarsky, Moses ED PHYSICIANS Unavailable Unavailable Pikarsky, Moses ED PHYSICIANS Unavailable Unavailable Pikarsky, Moses ED PHYSICIANS Unavailable Unavailable Pikarsky, Moses ED PHYSICIANS Unavailable Unavailable HUIZENGAKristenON DO Unavailable Unavailable HUIZENGAKristenON DO Unavailable Unavailable HUIZENGAKristen DO Unavailable Unavailable HUIZENGA D WILBUR DO Unavailable Unavailable HUIZENGAKristen DO Unavailable Unavailable HUIZENGA D WILBUR DO Unavailable Unavailable HUIZENGAKristen DO Unavailable Unavailable HUIZENGAKristen DO Unavailable Unavailable HUIZENGAKristen DO Unavailable Unavailable HUIZENGA D WILBUR DO Unavailable Unavailable HUIZENGAKristen DO Unavailable Unavailable HUIZENGA D WILBUR DO Unavailable Unavailable HUIZENGA D WILBUR DO Unavailable Unavailable HUIZENGA, Kristen BOWLES DO Unavailable Unavailable HUIZENGA, Kristen BOWLES DO Unavailable Unavailable HUIZENGA, Kristen BOWLES DO Unavailable Unavailable HUIZENGA, Kristen BOWLES DO Unavailable Unavailable HUIZENGA, Kristen BOWLES DO Unavailable Unavailable HUIZENGA, Kristen BOWLES DO Unavailable Unavailable HUIZENGA, Kristen BOWLES DO Unavailable Unavailable HUIZENGA, Kristen BOWLES DO Unavailable Unavailable HUIZENGA, Kristen BOWLES DO Unavailable Unavailable HUIZENGA, Kristen BOWLES DO Unavailable Unavailable HUIZENGA, Kristen BOWLES DO Unavailable Unavailable HUIZENGA, Kristen BOWLES DO Unavailable Unavailable HUIZENGA, Kristen BOWLES DO Unavailable Unavailable HUIZENGA, Kristen BOWLES DO Unavailable Unavailable HUIZENGA, Kristen BOWLES DO Unavailable Unavailable HUIZENGA, Kristen BOWLES DO Unavailable Unavailable HUIZENGA, Kristen BOWLES DO Unavailable Unavailable HUIZENGA, Kristen BOWLES DO Unavailable Unavailable HUIZENGA, Kristen BOWLES DO Unavailable Unavailable HUIZENGA, Kristen BOWLES DO Unavailable Unavailable HUIZENGA, Kristen BOWLES DO Unavailable Unavailable HUIZENGA, Kristen BOWLES DO Unavailable Unavailable HUIZENGA, Kristen BOWLES DO Unavailable Unavailable HUIZENGA, Kristen BOWLES DO Unavailable Unavailable HUIZENGA, Kristen BOWLES DO Unavailable Unavailable HUIZENGA, Kristen BOWLES DO Unavailable Unavailable HUIZENGA, Kristen BOWLES DO Unavailable Unavailable HUIZENGA, Kristen BOWLES DO Unavailable Unavailable HUIZENGA, Kristen BOWLES DO Unavailable Unavailable HUIZENGA, Kristen BOWLES DO Unavailable Unavailable HUIZENGA, Kristen BOWLES DO Unavailable Unavailable HUIZENGA, Kristen BOWLES DO Unavailable Unavailable HUIZENGA, Kristen BOWLES DO Unavailable Unavailable HUIZENGA, Kristen BOWLES DO Unavailable Unavailable HUIZENGA, Kristen BOWLES DO Unavailable Unavailable HUIZENGA, Kristen BOWLES DO Unavailable Unavailable HUIZENGA, Kristen BOWLES DO Unavailable Unavailable HUIZENGA, Kristen BOWLES DO Unavailable Unavailable HUIZENGA, Kristen BOWLES DO Unavailable Unavailable HUIZENGA, Kristen BOWLES DO Unavailable Unavailable HUIZENGA, Kristen BOWLES DO Unavailable Unavailable HUIZENGA, Kristen BOWLES DO Unavailable Unavailable HUIZENGA, Kristen BOWLES DO Unavailable Unavailable HUIZENGA, Kristen BOWLES DO Unavailable Unavailable HUIZENGA, Kristen BOWLES DO Unavailable Unavailable HUIZENGA, D WILBUR DO Unavailable Unavailable HUIZENGA, D WILBUR DO Unavailable Unavailable HUIZENGA, D WILBUR DO Unavailable Unavailable HUIZENGA, D WILBUR DO Unavailable Unavailable HUIZENGA, Kristen ANDERSONON DO Unavailable Unavailable HUIZENGA, Kristen ANDERSONON DO Unavailable Unavailable HUIZENGA, Kristen ANDERSONON DO Unavailable Unavailable HUIZENGA, Kristen ANDERSONON DO Unavailable Unavailable HUIZENGA, D WILBUR DO Unavailable Unavailable HUIZENGA, Kristen BOWLES DO Unavailable Unavailable HUIZENGA, D WILBUR DO Unavailable Unavailable HUIZENGA, D WILBUR DO Unavailable Unavailable HUIZENGA, Kristen BOWLES DO Unavailable Unavailable HUIZENGA, D WILBUR DO Unavailable Unavailable HUIZENGA, D WILBUR DO Unavailable Unavailable [place] Viktor, A Shira PA Unavailable Unavailable [place] Viktor, A Shira PA Unavailable Unavailable [place] Viktor, A Shira PA Unavailable Unavailable [place] Viktor, A Shira PA Unavailable Unavailable [place] Viktor, A Shira PA Unavailable Unavailable [place] Viktor, A Shira PA Unavailable Unavailable [place] Viktor, A Shira PA Unavailable Unavailable [place] Viktor, A Shira PA Unavailable Unavailable [place] Viktor, A Shira PA Unavailable Unavailable [place] Viktor, A Shira PA Unavailable Unavailable [place] Viktor, A Shira PA Unavailable Unavailable [place] Viktor, A Shira PA Unavailable Unavailable [place] Viktor, A Shira PA Unavailable Unavailable [place] Viktor, A Shira PA Unavailable Unavailable [place] Viktor, A Shira PA Unavailable Unavailable [place] Viktor, A Shira PA Unavailable Unavailable [place] Viktor, A Shira PA Unavailable Unavailable [place] Viktor, A Shira PA Unavailable Unavailable [place] Ivktor, A Shira PA Unavailable Unavailable [place] Viktor, A Shira PA Unavailable Unavailable [place] Viktor, A Shira PA Unavailable Unavailable [place] Viktor, A Shira PA Unavailable Unavailable [place] Viktor, A Shira PA Unavailable Unavailable [place] Viktor, A Shira PA Unavailable Unavailable [place] Viktor, A Shira PA Unavailable Unavailable [place] Viktor, A Shira PA Unavailable Unavailable [place] Viktor, A Shira PA Unavailable Unavailable [place] Viktor, A Shira PA Unavailable Unavailable [place] Viktor, A Shira PA Unavailable Unavailable [place] Viktor, A Shira PA Unavailable Unavailable [place] Viktor, A Shira PA Unavailable Unavailable [place] Viktor, A Shira PA Unavailable Unavailable [place] Viktor, A Shira PA Unavailable Unavailable [place] Viktor, A Shira PA Unavailable Unavailable [place] Viktor, A Shira PA Unavailable Unavailable [place] Viktor, A Shira PA Unavailable Unavailable [place] Viktor, A Shira PA Unavailable Unavailable [place] Viktor, A Shira PA Unavailable Unavailable [place] Viktor, A Shira PA Unavailable Unavailable [place] Viktor, A Shira PA Unavailable Unavailable [place] Viktor, A Shira PA Unavailable Unavailable [place] Viktor, A Shira PA Unavailable Unavailable [place] Viktor, A Shira PA Unavailable Unavailable [place] Viktor, A Shira PA Unavailable Unavailable [place] Viktor, A Shira PA Unavailable Unavailable [place] Viktor, A Shira PA Unavailable Unavailable [place] Viktor, A Shira PA Unavailable Unavailable [place] Viktor, A Shira PA Unavailable Unavailable Re-disclosure Warning The records that you are about to access may contain information from federally-assisted alcohol or drug abuse programs. If such information is present, then the following federally mandated warning applies: This information has been disclosed to you from records protected by federal confidentiality rules (42 CFR part 2). The federal rules prohibit you from making any further disclosure of this information unless further disclosure is expressly permitted by the written consent of the person to whom it pertains or as otherwise permitted by 42 CFR part 2. A general authorization for the release of medical or other information is NOT sufficient for this purpose. The Federal rules restrict any use of the information to criminally investigate or prosecute any alcohol or drug abuse patient.The records that you are about to access may contain highly sensitive health information, the redisclosure of which is protected by Article 27-F of the [facility] Public Health law. If you continue you may have access to information: Regarding HIV / AIDS; Provided by facilities licensed or operated by the [facility] Office of Mental Health; or Provided by the [facility] Office for People With Developmental Disabilities. If such information is present, then the following [facility] mandated warning applies: This information has been disclosed to you from confidential records which are protected by state law. State law prohibits you from making any further disclosure of this information without the specific written consent of the person to whom it pertains, or as otherwise permitted by law. Any unauthorized further disclosure in violation of state law may result in a fine or correction sentence or both. A general authorization for the release of medical or other information is NOT sufficient authorization for further disc losure. Allergies and Adverse Reactions Type Description Substance Reaction Status Data Source(s ) Nabumetone Nabumetone Nabumetone active NETSMART ([facility]) Environmental Environmental Environmental Hayfever symptoms Active eCW1 ([facility]) Environmental Environmental Environmental Hayfever symptoms Active eCW1 ([facility]) Family History Family Member Name Family Member Gender Family Member Status Date o f Status Description Data Source(s) Unknown Male Problem MEDENT ([facility]) Unknown Unknown Problem MEDENT ([facility]) Unknown Unknown Problem MEDENT ([facility]) Encounters Encounter Providers Location Date Indications Data Source(s ) Outpatient [address] [facility] [id number] 07/13/2020 12:00:00 AM EST eCW1 ([facility]) Unknown [address] [facility] [address] 07/03/2020 12:00:00 AM EST eCW1 ([facility]) Attender: ALBERT WINTER MD [facility] 06/30/2020 07:07:00 PM EST - 06/30/2020 07:07:00 PM EST NextGen ( [facility]) ([facility]) Transition of Care Visit [address] [place] [address] 06/18/2020 12:00:00 AM EST eCW1 ([facility]) Attender: Shira PARDO 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 Other psoriatic arthropathy Unknown [address] [facility] [address] 05/22/2020 12:00:00 AM EST eCW1 ([facility]) Unknown [address] [facility] [place] [address] 05/21/2020 12:00:00 AM EST [facility]CW1 [facility]) Outpatient [address] [facility] [place] [address] 05/20/2020 12:00:00 AM EST eCW1 ([facility]) Unknown [address] [facility] [place] [address] 05/12/2020 12:00:00 AM EST eCW1 ([facility]) Attender: Shira PARDO [facility] 04/27/2020 12:13:00 PM EST - 04/27/2020 12:13:00 PM EST NextGen ( [facility]) Outpatient Attender: Jason Valdez MD Main office - [place] 04/21/2020 10:15:00 AM EST MEDENT ([facility]) Unknown [address] [facility] [address] 04/17/2020 12:00:00 AM EDT eCW1 ([facility]) Outpatient [address] [facility] [place] [address] 04/06/2020 12:00:00 AM EDT eCW1 ([facility]) Unknown [address] [facility] [place] [address] 04/01/2020 12:00:00 AM EDT eCW1 ([facility]) 03/24/2020 01:00:00 AM EDT - 020 09:56:13 AM EDT NETSMART ([facility]) OutpatientOFFICE/OUTPATIENT VISIT, EST Attender: Moses magaña NP [facility] 02/26/2020 12:20:00 PM EDT - 02/26/2020 12:20:00 PM ED T Psoriasis, unspecifiedFibromyalgiaOther chcf (current) drug therapyOther psoriatic arthropathy NextGen ([facility]) Psoriasis, unspecified Fibromyalgia Other [facility] (current) drug therapy Other psoriatic arthropathy Outpatient Attender: Yinka Ashby MD Main Office 02/14/2020 09:30:00 AM EDT MEDENT ([facility]) Outpatient Attender: Jason Valdez MD Main office - [place] 02/11/2020 10:30:00 AM EDT MEDENT ([facility] ) Attender: Shira PARDO [facility] 01/24/2020 07:54:00 AM EDT - 01/24/2020 07:54:00 AM EDT NextGen ( [facility]) Attender: Shira PARDO [facility] 01/23/2020 08:07:00 AM EDT - 01/23/2020 08:07:00 AM EDT [facility] ( [facility]) Outpatient Attender: Saad Bolivar MDReferrer: WILBUR DESAI DO 01/21/2020 10:46:44 AM EDT [facility] Recurring Patient Attender: Saad Bolivar MDReferrer: WILBUR BROOKS DO 01/20/2020 02:23:24 PM EDT [facility] Outpatient Attender: Jason Valdez MD Main office - [place] 01/14/2020 10:00:00 AM EDT MEDENT ([facility], ) Outpatient Attender: Sharee Yeung NPAttender: WILBUR PRITCHARD DOReferrer: WILBUR PRITCHARD DO 12/27/2019 03:00:00 PM EDT - 12/27/2019 03:00: 00 PM EDT [facility] Emergency Attender: ИВАН DAVIESeferrer: WILBUR DESAI DO 12/17/2019 07:55:00 PM EDT - 12/17/2019 08:12:00 PM EDT [facility] Patient discharged. Attender: Shira PARDO [facility] 12/06/2019 08:10:00 AM EDT - 12/06/2019 08:10:00 AM EDT NextGen ( [facility]) Outpatient Attender: KATHY Cordero/Jade/Varun mancia 12/05/2019 11:30:00 AM EDT MEDENT ([facility]) Outpatient [address] [facility] [address] 11/21/2019 12:00:00 AM EDT eCW1 ([facility]) OutpatientOFFICE/OUTPATIENT VISIT, EST Attender: Shira PARDO [facility] 11/15/2019 10:40:00 AM EDT - 11/15/2019 10:40:00 AM EDT Psoriasis, unspecifiedFibromyalgiaOther remote computer terminal operator (current) drug therapyOther psoriatic arthropathy NextGen ([facility]) Psoriasis, unspecified Fibromyalgia Other chcf (current) drug therapy Other psoriatic arthropathy Attender: Shira PARDO [facility] 11/06/2019 09:08:00 AM EDT - 11/06/2019 09:08:00 AM EDT NextGen ( [facility]) [facility] [address] [place] [address] 11/06/2019 12:00:00 AM EDT eCW1 ([facility]) Attender: Shira PARDO [facility] 11/01/2019 07:50:00 AM EDT - 11/01/2019 07:50:00 AM EDT NextGen ( [facility]) Attender: Shira PARDO [facility] 10/14/2019 11:04:00 AM EDT - 10/14/2019 11:04:00 AM EDT NextGen ( [facility]) [facility] [address] [facility] [address] 10/14/2019 12:00:00 AM EDT eCW1 ([facility]) [facility] [address] [place] [address] 09/13/2019 12:00:00 AM EDT eCW1 ([facility]) [facility] [address] [facility] [address] 09/12/2019 12:00:00 AM EDT eCW1 ([facility]) [facility] [address] [facility] [address] 09/12/2019 12:00:00 AM EDT eCW1 ([facility]) Attender: Shira PARDO [facility] 09/10/2019 09:43:00 AM EDT - 09/10/2019 09:43:00 AM EDT [facility]Gen ( [facility]) Attender: Shira PARDO [facility] 09/09/2019 12:38:00 PM EDT - 09/09/2019 12:38:00 PM EDT [facility]Gen ( [facility]) 08/26/2019 12:44:00 PM EDT - 020 12:44:00 PM EDT [facility] ([facility]) Recurring Patient Attender: Saad Bolivar MDReferrer: Evangelista marrufo DO 08/26/2019 07:41:47 AM EDT [facility] Outpatient Attender: Dorene Oconnor NPReferrer: WILBUR DAMIAN DO 08/20/2019 02:50:41 PM EST [facility] Recurring Patient Attender: Saad Bolivar MDReferrer: Evangelista marrufo DO 08/19/2019 03:25:11 PM EST [facility] OutpatientOFFICE/OUTPATIENT VISIT, EST Attender: Shira PARDO [facility] 08/16/2019 11:00:00 AM EST - 08/16/2019 11:00:00 AM EST FibromyalgiaOther chcf (current) dr ug therapyOther psoriatic arthropathy [facility] ([facility]) Fibromyalgia Other chcf (current) drug therapy Other psoriatic arthropathy Recurring Patient Attender: Saad Bolivar MDReferrer: Evangelista marrufo DO 08/01/2019 05:24:17 PM EST [facility] Attender: Shira PARDO [facility] 07/15/2019 10:50:00 AM EST - 07/15/2019 10:50:00 AM EST Next[facility] ( [facility]) Attender: Shira PARDO [facility] 06/10/2019 10:09:00 AM EST - 06/10/2019 10:09:00 AM EST NextGen ( [facility]) Emergency Attender: BUCK Burrerrer: WILBUR PRITCHARD DO 12/28/2018 05:15:00 PM EDT - 12/28/2018 06:11:00 PM EDT [facility] Immunizations Vaccine Date Status Description Data Source(s) COVID-19(given elsewhere) Unspecified 07/09/2020 09:04:00 AM EST co mpleted eCW1 ([facility]) Influenza, injectable, MDCK, preservative free, lucy valent 03/31/2020 12:00:00 AM EDT completed Flucelvax NextGen ([facility]) Note: approx ; Source: Other Provider Medications Medication Brand Name Start Date Product Form Dose Route Admi nistrative Instructions Pharmacy Instructions Status Indications Reaction Description Data Source(s) Rosuvastatin calcium 10 MG Oral Tablet Rosuvastatin Ca lcium 10 MG Rosuvastatin Calcium 10 MG 07/13/2020 12:00:00 AM EST 1.0 {tablet} active Rosuvastatin Calcium 10 MG eCW1 ([facility] [facility] Rosuvastatin calcium 10 MG Oral Tablet ROSUVASTATIN CALCIUM 07/13/2020 12:00:00 AM EST tablet 60 TAKE ONE TABLET BY MOUTH JOHN RY DAY TAKE ONE TABLET BY MOUTH EVERY DAY SOLD: 07/15/2020 [facility] 875-125 mg 06/14/2020 12:00:00 AM EST tablet 10 TAKE ONE TABLET BY MOUTH TWICE A DAY TAKE ONE TABLET BY MOUTH TWICE A DAY SOLD: 06/14/2020 [facility] Amoxicillin 875 MG / Clavulanate 125 MG Oral Tablet Amoxicillin-Pot Clavulanate 875-125 MG Amoxicillin-Pot Clavulanate 875-125 MG 06/14/2020 12:00:00 AM ES T 1.0 {tablet} active Amoxicillin-Pot Cla vulanate 875-125 MG eCW1 ([facility]) 1 ML secukinumab 150 MG/ML Auto-Injector [Cosentyx] Cosentyx Pen 300 mg/2 Pens (150 mg/mL) subcutaneous Cosentyx Pen 300 mg/2 Pens (150 mg/mL) subcutaneous 05/29/2020 12:00:00 AM EST active 1 ML secukinumab 150 MG/ML Auto- Injector [Cosentyx] NextGen ([facility]) 1 ML secukinumab 150 MG/ML Auto-Injector [Cosentyx] CO SENTYX 300 MG DOSE-2 PENS COSENTYX 300 MG DOSE-2 PENS 04/27/2020 12:00:00 AM EST completed 1 ML secukinumab 150 MG/ML Auto-Injector [Cosentyx] [facility] ([facility]) POLYETHYLENE GLYCOL 3350 142 MG/ML Oral Solution Polyethylen e Glycol 3350 04/13/2020 12:00:00 AM EDT active MEDENT ([facility], ) 50 mcg/actuation 04/09/2020 12:00:00 AM EDT spray,suspension 16 SPRAY 1 SPRAY IN EACH NOSTRIL ONCE DAILY SPRAY 1 SPRAY IN EACH NOSTRIL ONCE DAILY SOLD: 04/13/2020 [facility] Dexilant 60 MG Dexilant 03/24/2020 01:00:00 AM EDT completed NETSMART ([facility]) Cosentyx Sensoready Pen 150 MG/ML Cosentyx Sensoready Pen 01:00:00 AM EDT 300.0 {mg} completed NET SMART ([facility]) Aspirin 325 MG Aspirin 03/24/2020 01:00:00 AM EDT completed [facility] ([facility]) Keppra 500 MG Keppra 03/24/2020 01:00:00 AM EDT co mpleted [facility]SM[facility] ([facility]) Percocet 2.5-325 MG Percocet 03/24/2020 01:00:00 AM EDT completed [facility] ([facility] ) MiraLax 17 GM MiraLax 03/24/2020 01:00:00 AM EDT c ompleted [facility]SM[facility] ([facility]) Levothyroxine Sodium 75 MCG Levothyroxine Sodium 03/24/2020 01:00:00 AM EDT completed [facility]SM[facility] ( [facility]) Flonase Allergy Relief 50 MCG/ACT Flonase Allergy Relief 11/2019 01:00:00 AM EDT completed NETSMAR T ([facility]) Acetaminophen 325 MG Acetaminophen 03/24/2020 01:00:00 AM EDT completed [facility]SMART ([facility]) Keppra 250 MG Keppra 03/24/2020 01:00:00 AM EDT co mpleted [facility]SM[facility] ([facility]) 150 mg 02/21/2020 12:00:00 AM EDT tablet 1 TAKE ONE TABLET BY MOUTH ONE TIME TAKE ONE TABLET BY MOUTH ONE TIME SOLD: 02/24/2020 [facility] meloxicam 7.5 MG Oral Tablet MELOXICAM 7.5 MG TABLET MELOXIC AM 7.5 MG TABLET 01/23/2020 12:00:00 AM EDT 1 {tbl} ORAL completed TAKE ONE TABLET BY MOUTH TWO TIMES EVERY DAY NEEDED [facility] ([facility]) MAGNESIUM CITRATE 12/06/2019 12:00:00 AM EDT solution 296 USE 10 OZ BOTTLE OF GREEN OR CLEAR ONLY FOR ADDITIONAL PREP 2-3 DAYS BEFORE PROCEDURE USE 10 OZ BOTTLE OF GREEN OR CLEAR ONLY FOR ADDITIONAL PREP 2-3 DAYS BEFORE PROCEDURE SOLD: 12/06/2019 [facility] 17 gram/dose 12/06/2019 12:00:00 AM EDT powder 1020 TAKE 17GRAMS MIXED WITH LIQUID BY MOUTH TWO TIMES A DAY TAKE 17GRAMS MIXED WITH LIQUID BY MOUTH TWO TIMES A DAY SOLD: 12/06/2019 [facility] 17.5-3.13-1.6 gram 12/06/2019 12:00:00 AM EDT recon soln 354 TAKE DIRECTED -SEE DR PALENCIA'S INSTRUCTIONS TAKE DIRECTED -SEE DR PALENCIA'S INSTRUCTIONS SOLD: 12/06/2019 [facility] 17 gram/dose 12/06/2019 12:00:00 AM EDT powder 1020 TAKE 17GRAMS MIXED WITH LIQUID BY MOUTH TWO TIMES A DAY TAKE 17GRAMS MIXED WITH LIQUID BY MOUTH TWO TIMES A DAY SOLD: 03/12/2020 [facility] 17 gram/dose 12/06/2019 12:00:00 AM EDT powder 1020 TAKE 17GRAMS MIXED WITH LIQUID BY MOUTH TWO TIMES A DAY TAKE 17GRAMS MIXED WITH LIQUID BY MOUTH TWO TIMES A DAY SOLD: 01/04/2020 [facility] 17 gram/dose 12/06/2019 12:00:00 AM EDT powder 1020 TAKE 17GRAMS MIXED WITH LIQUID BY MOUTH TWO TIMES A DAY TAKE 17GRAMS MIXED WITH LIQUID BY MOUTH TWO TIMES A DAY SOLD: 02/07/2020 [facility] 1 ML secukinumab 150 MG/ML Auto-Injector [Cosentyx] CO SENTYX 300 MG DOSE-2 PENS COSENTYX 300 MG DOSE-2 PENS 12/06/2019 12:00:00 AM EDT active 1 ML secukinumab 150 MG/ML Auto-Injector [Cosentyx] [facility] ([facility]) magnesium citrate 58.2 MG/ML Oral Solution Magnesium Citrate 12/05/2019 12:00:00 AM EDT active MEDENT ([facility], ) Suprep Bowel Prep Kit Suprep Bowel Prep Kit 12/05/2019 12:00:00 AM EDT active MEDENT ([facility], ) POLYETHYLENE GLYCOL 3350 142 MG/ML Oral Solution [Miralax] M iralax 12/05/2019 12:00:00 AM EDT completed MEDENT ([facility], ) 5 mg 11/15/2019 12:00:00 AM EDT tablet 30 TAKE THREE TABLETS BY MOUTH EVERY DAY FOR 5 DAYS THEN 2 FOR 5 DAYS THEN 1 FOR 5 DAYS TAKE THREE TABLETS BY MOUTH EVERY DAY FOR 5 DAYS THEN 2 FOR 5 DAYS THEN 1 FOR 5 DAYS SOLD: 11/15/2019 [facility] Prednisone 5 MG Oral Tablet prednisone 5 mg tablet prednison e 5 mg tablet 11/15/2019 12:00:00 AM EDT 3 {tbl} ORAL completed take 3 Tablet by oral route every day decrease by 1 tab every 5 days [facility] ([facility]) Cyclobenzaprine hydrochloride 5 MG Oral Tablet CYCLOBE NZAPRINE 5 MG TABLET CYCLOBENZAPRINE 5 MG TABLET 11/06/2019 12:00:00 AM EDT active TAKE ONE TO TWO TABLETS BY MOUTH AT BEDTIME [facility] ([facility]) meloxicam 7.5 MG Oral Tablet MELOXICAM 7.5 MG TABLET MELOXIC AM 7.5 MG TABLET 11/01/2019 12:00:00 AM EDT 1 {tbl} ORAL completed TAKE ONE TABLET BY MOUTH TWO TIMES EVERY DAY NEEDED [facility] ([facility]) 17 gram/dose 10/14/2019 12:00:00 AM EDT powder 238 TAKE 1 TO 3 TEASPOONFULS MIXED WITH LIQUID BY MOUTH ONCE DAILY TAKE 1 TO 3 TEASPOONFULS MIXED WITH LIQU ID BY MOUTH ONCE DAILY SOLD: 10/16/2019 [facility] 17 gram/dose 10/14/2019 12:00:00 AM EDT powder 238 TAKE 1 TO 3 TEASPOONFULS MIXED WITH LIQUID BY MOUTH ONCE DAILY TAKE 1 TO 3 TEASPOONFULS MIXED WITH LIQU ID BY MOUTH ONCE DAILY SOLD: 11/14/2019 [facility] Fluticasone Propionate 50 MCG/ACT Fluticasone Propionate 50 MCG/ACT 10/14/2019 12:00:00 AM EDT 1.0 {spray_in_each_nostril} acti ve Fluticasone Propionate 50 MCG/ACT eCW1 ([facility]) Fluticasone Propionate 50 MCG/ACT Fluticasone Propionate 50 MCG/ACT 10/14/2019 12:00:00 AM EDT active 1 spray in each nostril eCW1 ([facility]) 50 mcg/actuation 10/14/2019 12:00:00 AM EDT spray,suspension 16 SPRAY 1 SPRAY IN EACH NOSTRIL ONCE DAILY SPRAY 1 SPRAY IN EACH NOSTRIL ONCE DAILY SOLD: 02/12/2020 [facility] Fluticasone Propionate 50 MCG/ACT Fluticasone Propionate 50 MCG/ACT 10/14/2019 12:00:00 AM EDT 1.0 {spray_in_each_nostril} acti ve Fluticasone Propionate 50 MCG/ACT eCW1 ([facility]) 50 mcg/actuation 10/14/2019 12:00:00 AM EDT spray,suspension 16 SPRAY 1 SPRAY IN EACH NOSTRIL ONCE DAILY SPRAY 1 SPRAY IN EACH NOSTRIL ONCE DAILY SOLD: 10/16/2019 [facility] 50 mcg/actuation 10/14/2019 12:00:00 AM EDT spray,suspension 16 SPRAY 1 SPRAY IN EACH NOSTRIL ONCE DAILY SPRAY 1 SPRAY IN EACH NOSTRIL ONCE DAILY SOLD: 12/14/2019 [facility] Ciprofloxacin 250 MG Oral Tablet Ciprofloxacin HCl 250 MG Ciprofloxacin HCl 250 MG 09/12/2019 12:00:00 AM EDT active 1 tablet eCW1 ([facility]) 250 mg 09/12/2019 12:00:00 AM EDT tablet 14 TAKE ONE TABLET BY MOUTH EVERY 12 HOURS FOR 7 DAYS TAKE ONE TABLET BY MOUTH EVERY 12 HOURS FOR 7 DAYS SIS [facility] 5 mg 09/10/2019 12:00:00 AM EDT tablet 60 TAKE ONE TO TWO TABLETS BY MOUTH AT BEDTIME TAKE ONE TO TWO TABLETS BY MOUTH AT BEDTIME SOLD: 09/12/2019 [facility] Cyclobenzaprine hydrochloride 5 MG Oral Tablet CYCLOBE NZAPRINE 5 MG TABLET CYCLOBENZAPRINE 5 MG TABLET 09/10/2019 12:00:00 AM EDT completed TAKE ONE TO TWO TABLETS BY MOUTH AT BEDTIME [facility] ([facility]) 5 mg 09/10/2019 12:00:00 AM EDT tablet 60 TAKE ONE TO TWO TABLETS BY MOUTH AT BEDTIME TAKE ONE TO TWO TABLETS BY MOUTH AT BEDTIME SOLD: 10/11/2019 [facility] 1 ML secukinumab 150 MG/ML Auto-Injector [Cosentyx] CO SENTYX 300 MG DOSE-2 PENS COSENTYX 300 MG DOSE-2 PENS 09/09/2019 12:00:00 AM EDT completed 1 ML secukinumab 150 MG/ML Auto-Injector [Cosentyx] [facility] ([facility]) 1 ML secukinumab 150 MG/ML Auto-Injector [Cosentyx] Cosentyx Pen 300 mg/2 Pens (150 mg/mL) subcutaneous Cosentyx Pen 300 mg/2 Pens (150 mg/mL) subcutaneous 08/16/2019 12:00:00 AM EST completed 1 ML secukinumab 150 MG/ML Auto-Injector [Cosentyx] [facility] ([facility]) meloxicam 7.5 MG Oral Tablet meloxicam 7.5 mg tablet meloxic am 7.5 mg tablet 08/16/2019 12:00:00 AM EST 1 {tbl} ORAL completed take 1 tablet by oral route 2 times every day as needed [facility] ([facility]) 5 mg 07/15/2019 12:00:00 AM EST tablet 60 TAKE ONE TO TWO TABLETS BY MOUTH AT BEDTIME TAKE ONE TO TWO TABLETS BY MOUTH AT BEDTIME SOLD: 07/18/2019 [facility] Cyclobenzaprine hydrochloride 5 MG Oral Tablet CYCLOBE NZAPRINE 5 MG TABLET CYCLOBENZAPRINE 5 MG TABLET 07/15/2019 12:00:00 AM EST completed TAKE ONE TO TWO TABLETS BY MOUTH AT BEDTIME [facility] ([facility]) 5 mg 07/15/2019 12:00:00 AM EST tablet 60 TAKE ONE TO TWO TABLETS BY MOUTH AT BEDTIME TAKE ONE TO TWO TABLETS BY MOUTH AT BEDTIME SOLD: 08/15/2019 [facility] 17 gram/dose 06/24/2019 12:00:00 AM EST powder 238 TAKE 1 TO 3 TEASPOONFULS MIXED WITH 4 TO 8 OUNCES OF LIQUID BY MOUTH ONCE DAILY TAKE 1 TO 3 TEASPOONFULS MIXED WITH 4 TO 8 OUNCES OF LIQUID BY MOUTH ONCE DAILY SOLD: 08/21/2019 [facility] 17 gram/dose 06/24/2019 12:00:00 AM EST powder 238 TAKE 1 TO 3 TEASPOONFULS MIXED WITH 4 TO 8 OUNCES OF LIQUID BY MOUTH ONCE DAILY TAKE 1 TO 3 TEASPOONFULS MIXED WITH 4 TO 8 OUNCES OF LIQUID BY MOUTH ONCE DAILY SOLD: 09/19/2019 [facility] 17 gram/dose 06/24/2019 12:00:00 AM EST powder 238 TAKE 1 TO 3 TEASPOONFULS MIXED WITH 4 TO 8 OUNCES OF LIQUID BY MOUTH ONCE DAILY TAKE 1 TO 3 TEASPOONFULS MIXED WITH 4 TO 8 OUNCES OF LIQUID BY MOUTH ONCE DAILY SOLD: 06/24/2019 [facility] 17 gram/dose 06/24/2019 12:00:00 AM EST powder 238 TAKE 1 TO 3 TEASPOONFULS MIXED WITH 4 TO 8 OUNCES OF LIQUID BY MOUTH ONCE DAILY TAKE 1 TO 3 TEASPOONFULS MIXED WITH 4 TO 8 OUNCES OF LIQUID BY MOUTH ONCE DAILY SOLD: 07/22/2019 [facility] meloxicam 7.5 MG Oral Tablet meloxicam 7.5 mg tablet meloxic am 7.5 mg tablet 05/13/2019 12:00:00 AM EST 1 {tbl} ORAL completed take 1 tablet by oral route 2 times every day as needed [facility] ([facility]) 5 mg 05/13/2019 12:00:00 AM EST tablet 60 TAKE ONE TO TWO TABLETS BY MOUTH AT BEDTIME TAKE ONE TO TWO TABLETS BY MOUTH AT BEDTIME SOLD: 06/17/2019 [facility] Cyclobenzaprine hydrochloride 5 MG Oral Tablet cyclobe nzaprine 5 mg tablet cyclobenzaprine 5 mg tablet 05/13/2019 12:00:00 AM EST completed take 1-2 tablets by oral route every bedtime [facility] ([facility]) 1 ML secukinumab 150 MG/ML Auto-Injector [Cosentyx] Cosentyx Pen 300 mg/2 Pens (150 mg/mL) subcutaneous Cosentyx Pen 300 mg/2 Pens (150 mg/mL) subcutaneous 05/13/2019 12:00:00 AM EST completed 1 ML secukinumab 150 MG/ML Auto-Injector [Cosentyx] [facility] ([facility]) 17 gram/dose 04/15/2019 12:00:00 AM EDT powder 238 MIX 1-3 TEASPOONFUL IN LIQUID AND DRINK ONCE DAILY MIX 1-3 TEASPOONFUL IN LIQUID AND DRINK ONCE DAILY SOLD: 05/27/2019 [facility] Aspirin 325 MG Delayed Release Oral Tabl et aspirin 325 mg tablet,delayed release aspirin 325 mg tablet,delayed release 1.00 {tbl} ORAL completed take 1 tablet by oral route every day [facility] ([facility]) Insurance Providers Payer name Policy type / Coverage type Policy ID Covered libertarian ID Covered libertarian's relationship to haynes Policy Haynes Plan Information [facility] [id number] [facility] [id number] S [id number] [facility] [id number] S [id number] [facility] [id number] SELF [id number] [employer] [id number] S [id number] [facility] [id number] SELF [id number] ANSI-Commercial [id number] [facility] [id number] SP [id number] ANSI-Commercial [id number] ANSI-Commercial [id number] ANSI-Commercial [id number] [employer] [id number] SP [id number] ANSI-Commercial [id number] ANSI-Commercial [id number] [employer] / UMR F [id number] SELF [id number] [facility] [id number] SP [id number] [facility] [id number] SP [id number] [employer] [id number] SP [id number] [employer] Commercial [id number] Self [id number] [employer] PPO O [id number] O [id number] [employer] F [id number] SELF [id number] [employer] [id number] SP [id number] [employer] Commercial Self [employer] [id number] SP [id number] [employer] F [id number] SELF [id number] [employer] F [id number] SELF [id number] [employer] (pr) Commercial Self [employer] U [id number] Self [id number] [employer] [id number] SP [id number] Problems, Conditions, and Diagnoses Code Display Name Description Problem Type Effective Dates Data Source(s) K80.20 [id number] Calculus of gallblad arely without cholecystitis without obstruction Problem 07/13/2020 12:00:00 AM EST eCW1 ([facility]) 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 Problem 04/06/2020 12:00:0 0 AM EDT eCW1 ([facility]) E11.9 [id number] Type 2 diabetes isabel itus without complication, without long-term current use of insulin Problem 04/06/2020 12:00:00 AM EDT eCW1 ([facility]) Z48.812 Encounter for surgical after care following surgery on the circulatory system Encounter for surgical aftercare followi ng surgery on the circulatory system Problem 03/24/2020 01:00:00 AM EDT NETSMART ([facility]) 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 Problem 03/24/2020 01 :00:00 AM EDT NETSMART ([facility]) L40.50 Arthropathic psoriasis, unspecified Arthropathic psoriasis, unspecified Problem 03/24/2020 01:00:00 AM EDT NETSMART ([facility]) K57.90 Diverticulosis of intestine, part unspecified, without perforation or abscess without bleeding Diverticulosis of intestine, part unspec ified, without perforation or abscess without bleeding Problem 03/24/2020 01:00:00 AM EDT NETSMART ([facility]) K76.0 Fatty (change of) liver, not elsewhere c lassified Fatty (change of) liver, not elsewhere classified Problem 03/24/2020 01:00:00 AM EDT NETSMAR T ([facility]) M79.7 Fibromyalgia Fibromyalgia Problem 03/24/2020 01:00:00 A M EDT NETSMART ([facility]) M19.90 Unspecified osteoarthritis, unspecified site Unspecified osteoarthritis, unspecified site Problem 03/24/2020 01:00:00 AM EDT NETSMART ([facility]) E03.9 Hypothyroidism, unspecified Hypothyroidism, unspecifie d Problem 03/24/2020 01:00:00 AM EDT NETSMART ([facility] ) E66.9 Obesity, unspecified Obesity, unspecified Problem 03/24/2020 01:00:00 AM EDT NETSMART ([facility] ) Z48.01 Encounter for change or removal of surgi yoshi wound dressing Encounter for change or removal of surgical wound dressing Problem 03/24/2020 01:0 0:00 AM EDT NETSMART ([facility]) Z95.828 Presence of other vascular implants and grafts Presence of other vascular implants and grafts Problem 03/24/2020 01:00:00 AM EDT NETS MART ([facility]) Z86.73 Personal history of transien t ischemic attack (TIA), and cerebral infarction without residual deficits Personal history of transient ischemic attack (TIA), and cerebral infarction without residual deficits Problem 03/24/2020 01:00:00 AM EDT NETSMART ([facility] ) Z79.52 manager intermediate (current) use of systemic ster oids FDC (current) use of systemic steroids Problem 03/24/2020 01:00:00 AM EDT NETSMART ([facility]) Z79.82 FDC (current) use of aspirin FDC (cu rrent) use of aspirin Problem 03/24/2020 01:00:00 AM EDT NETSMART ([facility]) Z79.899 Other chcf (current) drug therapy O ther chcf (current) drug therapy Problem 03/24/2020 01:00:00 AM EDT NETSMART ([facility]) Z91.81 History of falling History of falling Problem 0 01:00:00 AM EDT NETSMART ([facility]) Z68.35 Body mass index [BMI] 35.0-35.9, adult B jefry mass index [BMI] 35.0-35.9, adult Problem 03/24/2020 01:00:00 AM EDT NETSMART ([facility]) 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 Problem 03/22/2020 01 :00:00 AM EDT NETSMART ([facility]) [id number] Transient cerebral ischemia Transient cerebral ischemi a Problem 02/14/2020 12:00:00 AM EDT MEDENT ([facility]) [id number] Disorder of thyroid gland Disorder of thyroid gland Pr oblem 02/14/2020 12:00:00 AM EDT MED[facility] ([facility]) 41030413 Varicose veins of lower extremity Varicose veins of lower extremity Problem 02/14/2020 12:00:00 AM EDT [facility] ([facility]) 625829665 Carotid artery occlusion Carotid artery occlusion Prob elmer 02/13/2020 12:00:00 AM EDT MED[facility] ([facility]) [id number] Refractory migraine Refractory migraine Problem 0 02/13/2020 12:00:00 AM EDT MEDENT ([facility]) 689812318 Chronic low back pain Chronic low back pain Problem 01/14/2020 12:00:00 AM EDT MEDENT ([facility] ) [id number] Chronic neck pain Chronic neck pain Problem 12/18 12:00:00 AM EDT MEDENT ([facility] ) 95767177 Migraine without aura Migraine without aura Problem 01/14/2020 12:00:00 AM EDT MEDENT ([facility] ) [id number] Transient cerebral ischemia Transient cerebral ischemi a Problem 01/14/2020 12:00:00 AM EDT MEDENT ([facility] ) 75001246 Trigeminal nerve disorder Trigeminal nerve disorder Pr oblem 01/14/2020 12:00:00 AM EDT MEDENT ([facility] ) [id number] Facial paresthesia Facial paresthesia Problem 12:00:00 AM EDT MEDENT ([facility] ) R20.2 [id number] Facial paresthesia Problem 12/19/2019 12:00: 00 AM EDT eC ([facility]) J30.89 [id number] Non-seasonal allergic rhinitis d ue to other allergic trigger Problem 10/14/2019 12:00:00 AM EDT [facility] ([facility]) J30.89 [id number] Non-seasonal allergic rhinitis d ue to other allergic trigger Problem 10/14/2019 12:00:00 AM EDT [facility] ([facility]) 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 PRIMARY STABBING HEADACHE Di agnosis 12/27/2019 03:00:00 PM [facility] Z79.899 Other chcf (current) drug therapy O THER ASSISTED (CURRENT) DRUG THERAPY Diagnosis 12/17/2019 07:55:00 PM [facility] Z79.51 manager intermediate (current) use of inhaled stero ids FILM CUTTER (CURRENT) USE OF INHALED STEROIDS Diagnosis 12/17/2019 07:55:00 PM [facility] Z79.1 FDC (current) use of non-steroidal anti-inflammatories (NSAID) ASSISTED (CURRENT) USE OF NON-STEROIDAL NON-INFLA Diagnosis 12/17/19 20 07:55:00 PM [facility] G62.9 Polyneuropathy, unspecified POLYNEUROPATHY, UNSPECIFIE D Diagnosis 12/17/2019 07:55:00 PM [facility] R20.2 Paresthesia of skin PARESTHESIA OF SKIN Diagnosis 0 12/17/2019 07:55:00 PM [facility] Surgeries/Procedures Procedure Description Date Indications Data Source(s) OFFICE/OUTPATIENT VISIT, EST 05/29/2020 12:00:00 AM EST - 05/29/2020 12:00:00 AM EST [facility] ([facility]) ASSAY OF SERUM ALBUMIN 05/29/2020 12:00: 00 AM EST - 05/29/2020 12:00:00 AM EST [facility] ([facility]) ALANINE AMINO (ALT) (SGPT) 05/29/2020 12 :00:00 AM EST - 05/29/2020 12:00:00 AM EST [facility] ([facility]) TRANSFERASE (AST) (SGOT) 05/29/2020 12:0 0:00 AM EST - 05/29/2020 12:00:00 AM EST [facility] ([facility]) ASSAY OF CREATININE 05/29/2020 12:00:00 AM EST - 05/29 12:00:00 AM EST [facility] ([facility]) C-REACTIVE PROTEIN 05/29/2020 12:00:00 AM EST - 2019 12:00:00 AM EST [facility] ([facility]) RBC SED RATE, AUTOMATED 05/29/2020 12:00 :00 AM EST - 05/29/2020 12:00:00 AM EST [facility] ([facility]) COMPLETE CBC W/AUTO DIFF WBC 05/29/2020 12:00:00 AM EST - 05/29/2020 12:00:00 AM EST [facility] ([facility]) ROUTINE VENIPUNCTURE 05/29/2020 12:00:00 AM EST - 05/29/2020 12:00:00 AM EST [facility] ([facility]) OFFICE/OUTPATIENT VISIT, EST 02/26/2020 12:00:00 AM EDT - 02/26/2020 12:00:00 AM EDT [facility] ([facility]) ASSAY OF SERUM ALBUMIN 02/26/2020 12:00: 00 AM EDT - 02/26/2020 12:00:00 AM EDT [facility] ([facility]) ALANINE AMINO (ALT) (SGPT) 02/26/2020 12 :00:00 AM EDT - 02/26/2020 12:00:00 AM EDT [facility] ([facility]) TRANSFERASE (AST) (SGOT) 02/26/2020 12:0 0:00 AM EDT - 02/26/2020 12:00:00 AM EDT [facility] ([facility]) ASSAY OF CREATININE 02/26/2020 12:00:00 AM EDT - 02/25 12:00:00 AM EDT [facility] ([facility]) C-REACTIVE PROTEIN 02/26/2020 12:00:00 AM EDT - 2019 12:00:00 AM EDT [facility] ([facility]) RBC SED RATE, AUTOMATED 02/26/2020 12:00 :00 AM EDT - 02/26/2020 12:00:00 AM EDT [facility] ([facility]) COMPLETE CBC W/AUTO DIFF WBC 02/26/2020 12:00:00 AM EDT - 02/26/2020 12:00:00 AM EDT [facility] ([facility]) ROUTINE VENIPUNCTURE 02/26/2020 12:00:00 AM EDT - 02/26/2020 12:00:00 AM EDT [facility] ([facility]) DUPLEX SCAN EXTRACRANIAL ART COMPL BI STUDY 02/14/2020 12:00:00 AM EDT MEDENT ([facility]) Magnetic Resonance Angiogtaphy Head W/O Contrast Material(S) 01/23/2020 12:00:00 AM EDT MEDENT ([facility]) Magnetic Resonance Angiogtaphy Head W/O Contrast Material(S) 01/23/2020 12:00:00 AM EDT [facility] ([facility]) Magnetic Resonance Angiography Neck W/O Contrast Materials 01/23/2020 12:00:00 AM EDT [facility] ([facility]) Magnetic Resonance Angiography Neck W/O Contrast Materials 01/23/2020 12:00:00 AM EDT MED[facility] ([facility]) MRI BRAIN BRAIN STEM W/O CONTRAST MATERIAL 01/23/2020 12:00:00 AM EDT MEDENT ([facility] ) MRI BRAIN BRAIN STEM W/O CONTRAST MATERIAL 01/23/2020 12:00:00 AM EDT MEDENT ([facility] ) Needle electromyography, each extremity, with related paraspinal areas, when performed, done with nerve conduction, amplitude and latency/velocity study; complete, five or more muscles studied, innervated by three or more nerves or four or more spinal levels (list separately in addition to the code for primary procedure). 01/16/2020 12:00:00 AM EDT MEDEN T ([facility] ) Needle Electromyography Non Extremity Done With Nerve Conduc tion 01/16/2020 12:00:00 AM EDT [facility] ([facility] ) Nerve Conduction 9-10 Studies 01/16/2020 12:00:00 AM E DT MEDENT ([facility] ) Colonoscopy W/ Poly 01/03/2020 12:00:00 AM EDT MEDENT ([facility], ) OFFICE/OUTPATIENT VISIT, EST 11/15/2019 12:00:00 AM EDT - 11/15/2019 12:00:00 AM EDT [facility] ([facility]) ASSAY OF SERUM ALBUMIN 11/15/2019 12:00: 00 AM EDT - 11/15/2019 12:00:00 AM EDT [facility] ([facility]) ALANINE AMINO (ALT) (SGPT) 11/15/2019 12 :00:00 AM EDT - 11/15/2019 12:00:00 AM EDT [facility] ([facility]) TRANSFERASE (AST) (SGOT) 11/15/2019 12:0 0:00 AM EDT - 11/15/2019 12:00:00 AM EDT [facility] ([facility]) ASSAY OF CREATININE 11/15/2019 12:00:00 AM EDT - 11/14 12:00:00 AM EDT [facility] ([facility]) C-REACTIVE PROTEIN 11/15/2019 12:00:00 AM EDT - 2019 12:00:00 AM EDT [facility] ([facility]) RBC SED RATE, AUTOMATED 11/15/2019 12:00 :00 AM EDT - 11/15/2019 12:00:00 AM EDT [facility] ([facility]) COMPLETE CBC W/AUTO DIFF WBC 11/15/2019 12:00:00 AM EDT - 11/15/2019 12:00:00 AM EDT [facility] ([facility]) ROUTINE VENIPUNCTURE 11/15/2019 12:00:00 AM EDT - 11/15/2019 12:00:00 AM EDT [facility] ([facility]) Documentation Of TB Screening W/in One Year 08/16/2019 12:00:00 AM EST - 08/16/2019 12:00:00 AM EST [facility] OFFICE/OUTPATIENT VISIT, EST 08/16/2019 12:00:00 AM EST - 08/16/2019 12:00:00 AM EST [facility] ([facility]) ASSAY OF SERUM ALBUMIN 08/16/2019 12:00: 00 AM EST - 08/16/2019 12:00:00 AM EST [facility] ([facility]) TRANSFERASE (AST) (SGOT) 08/16/2019 12:0 0:00 AM EST - 08/16/2019 12:00:00 AM EST [facility] ([facility]) ASSAY OF CREATININE 08/16/2019 12:00:00 AM EST - 08/16 12:00:00 AM EST [facility] ([facility]) RBC SED RATE, AUTOMATED 08/16/2019 12:00 :00 AM EST - 08/16/2019 12:00:00 AM EST [facility] ([facility]) COMPLETE CBC W/AUTO DIFF WBC 08/16/2019 12:00:00 AM EST - 08/16/2019 12:00:00 AM EST [facility] ([facility]) ROUTINE VENIPUNCTURE 08/16/2019 12:00:00 AM EST - 08/16/2019 12:00:00 AM EST [facility] ([facility]) Results ID Date Data Source [id number] 07/19/2020 10:45:00 AM EST [facility] Name Value Range Interpretation Code Description Data Patricia rce(s) Supporting Document(s) SARS coronavirus 2 RNA Not Detected [facility] [place] This lab was ordered by [facility] and reported by [facility]. ID Date Data Source [id number] 06/13/2020 09:57:00 AM EST [facility] Name Value Range Interpretation Code Description Data Patricia rce(s) Supporting Document(s) SARS coronavirus 2 RNA [Presence] in Res piratory specimen by NINFA with probe detection [facility] This lab was ordered by [facility] a nd reported by [facility]. ID Date Data Source [id number] 05/29/2020 12:24:00 PM EST [facility] ([facility]) Name Value Range Interpretation Code Description Data Patricia rce(s) Supporting Document(s) 1.6 mg/dL 0.0-0.5 Above high normal CRP [facility]) ID Date Data Source [id number] 05/29/2020 12:24:00 PM EST [facility] ([facility]) Name Value Range Interpretation Code Description Data Patricia rce(s) Supporting Document(s) >60 eGFR Non- [facility] ([facility]) 1.0 mg/dL 0.6-1.2 CREATININE [facility] ([facility]) 71.9 mL/min/1.73 eGFR [place] an [facility] ([facility]) ID Date Data Source [id number] 05/29/2020 12:24:00 PM EST [facility] ([facility]) Name Value Range Interpretation Code Description Data Patricia rce(s) Supporting Document(s) 21 U/L 15-37 AST [facility]) ID Date Data Source [id number] 05/29/2020 12:24:00 PM EST [facility] ([facility]) Name Value Range Interpretation Code Description Data Patricia rce(s) Supporting Document(s) 43 U/L 30-65 ALT [facility]) ID Date Data Source [id number] 05/29/2020 12:24:00 PM EST [facility] ([facility]) Name Value Range Interpretation Code Description Data Patricia rce(s) Supporting Document(s) 3.9 g/dL 3.4-4.4 ALB [facility] ([facility]) ID Date Data Source [id number] 05/29/2020 12:24:00 PM EST [facility] ([facility]) Name Value Range Interpretation Code Description Data Patricia rce(s) Supporting Document(s) 10 mm/Hr 0-20 ESR [facility]) ID Date Data Source [id number] 05/29/2020 12:24:00 PM EST [facility] ([facility]) Name Value Range Interpretation Code Description Data Patricia rce(s) Supporting Document(s) 8.3 10*3/uL 3.7-10.1 WBC [facility] ([facility]) 14.4 g/dL 12.0-16.0 HGB [facility]) 5.11 10*6/uL 3.50-5.50 RBC [facility]) 28.2 pg 26.0-34.0 MCH [facility] ([facility]) 87.7 fL 80.0-100.0 MCV [facility] ([facility]) 44.8 % 36.0-48.0 HCT [facility] ([facility]) 251 10*3/uL 150-500 PLATELETS [facility] ([facility]) 12.0 % 10.0-15.0 RDW [facility] ([facility]) 32.2 g/dL 31.0-37.0 MCHC [facility] ([facility]) 6.7 fL 6.0-10.0 MPV [facility] ([facility]) 5.11 10*3/uL 2.10-8.00 SAVANAH# [facility] ([facility]) 2.23 10*3/uL 1.00-5.00 LYM# [facility] ([facility]) 0.1 10*3/uL 0.0-0.2 BASO# [facility] ([facility]) 0.3 10*3/uL 0.0-0.5 EOS# [facility] ([facility]) 0.59 10*3/uL 0.10-1.00 MONO# [facility] ([facility]) 7.1 % 2.0-10.0 MONO% [facility] 26.9 % 25.0-50.0 LYM% [facility]) 61.5 % 50.0-80.0 SAVANAH% [facility]) 3.7 % 0.0-5.0 EOS% [facility]) 0.9 % 0.0-4.0 BASO% [facility]) ID Date Data Source [id number] 03/16/2020 11:55:00 AM EDT [facility] Name Value Range Interpretation Code Description Data Patricia rce(s) Supporting Document(s) SARS coronavirus 2 RNA [Presence] in Res piratory specimen by NINFA with probe detection [facility] This lab was ordered by [facility] and reported by [facility]. ID Date Data Source [id number] 02/26/2020 12:42:00 PM EDT [facility] ([facility])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 HISTORYNo significant family medical history. (Electronically signed by Иван Prado P.A. 12/17/2019 20:28) Name Value Range Interpretation Code Description Data Patricia rce(s) Supporting Document(s) ID Date Data Source [id number] 11/15/2019 10:51:00 AM EDT [facility] ([facility]) Name Value Range Interpretation Code Description Data Patricia rce(s) Supporting Document(s) 0.9 mg/dL 0.0-0.5 Above high normal CRP [facility]) ID Date Data Source [id number] 11/15/2019 10:51:00 AM EDT [facility] ([facility]) Name Value Range Interpretation Code Description Data Patricia rce(s) Supporting Document(s) 1.0 mg/dL 0.6-1.2 CREATININE [facility] ([facility]) 57.1 mL/min/1.73m eGFR [facility] ([facility]) ID Date Data Source [id number] 11/15/2019 10:51:00 AM EDT [facility] ([facility]) Name Value Range Interpretation Code Description Data Patricia rce(s) Supporting Document(s) 24 U/L 15-37 AST [facility] ([facility]) ID Date Data Source [id number] 11/15/2019 10:51:00 AM EDT [facility] ([facility]) Name Value Range Interpretation Code Description Data Patricia rce(s) Supporting Document(s) 40 U/L 30-65 ALT [facility] ([facility]) ID Date Data Source [id number] 11/15/2019 10:51:00 AM EDT [facility] ([facility]) Name Value Range Interpretation Code Description Data Patricia rce(s) Supporting Document(s) 3.8 g/dL 3.4-4.4 ALB [facility] ([facility]) ID Date Data Source [id number] 11/15/2019 10:51:00 AM EDT [facility] ([facility]) Name Value Range Interpretation Code Description Data Patricia rce(s) Supporting Document(s) 5 mm/Hr 0-20 ESR [facility] ([facility]) ID Date Data Source [id number] 11/15/2019 10:51:00 AM EDT [facility] ([facility]) Name Value Range Interpretation Code Description Data Patricia rce(s) Supporting Document(s) Negative SeeBelow T-SPOT.TB [facility] ([facility]) Normal Value: NegativeA negative test re sult does not exclude the possibility ofexposure to or infection with Mycobacterium tuberculosis (M.tuberculosis). Patients with recent exposure to TBinfected individuals exhibiting a negative T- SPOT.TB resultshould be considered for retesting within 6 weeks or ifother relevant clinical symptoms indicate. Results fromT-SPOT.TB testing must be used in conjunction with eachindividual's epidemiological history, current medicalstatus, and results of other diagnostic evaluations. TheT-SPOT.TB test is qualitative and results are reported aspositive, borderline or negative, given that the testcontrols perform as expected. In line with the Centers forDisease Control and Prevention's 2010 recommendation toreport quantitative measurements alongside the qualitativeresult, the laboratory provides spot counts forinformational purposes only. The T-SPOT.TB test should notbe interpreted as a quantitative test.

0 PANEL A SPOT COUNT CORREC TOBIAS FOR NEG CONTROL [facility] ([facility]) Passed NEGATIVE CONTROL [facility] ([facility] 0 PANEL B SPOT COUNT CORREC TOBIAS FOR NEG CONTROL [facility] ([facility]) Passed POSITIVE CONTROL [facility] ([facility]) ID Date Data Source [id number] 11/15/2019 10:51:00 AM EDT [facility] ([facility]) Name Value Range Interpretation Code Description Data Patricia rce(s) Supporting Document(s) 5.08 10*6/uL 3.50-5.50 RBC [facility] ([facility]) 8.4 10*3/uL 3.7-10.1 WBC [facility] ([facility]) 14.4 g/dL 12.0-16.0 HGB [facility]) 45.8 % 36.0-48.0 HCT [facility] ([facility]) 90.1 fL 80.0-100.0 MCV [facility] ([facility]) 28.3 pg 26.0-34.0 MCH [facility] ([facility]) 31.4 g/dL 31.0-37.0 MCHC [facility] ([facility]) 230 10*3/uL 150-500 PLATELETS [facility] ([facility]) 12.4 % 10.0-15.0 RDW [facility] ([facility]) 7.2 fL 6.0-10.0 MPV [facility] ([facility]) 5.29 10*3/uL 2.10-8.00 SAVANHA# [facility] ([facility]) 1.97 10*3/uL 1.00-5.00 LYM# [facility] ([facility]) 0.75 10*3/uL 0.10-1.00 MONO# [facility] ([facility]) 0.1 10*3/uL 0.0-0.2 BASO# [facility] ([facility]) 0.4 10*3/uL 0.0-0.5 EOS# [facility] ([facility]) 8.8 % 2.0-10.0 MONO% [facility]) 62.6 % 50.0-80.0 SAVANAH% [facility] ([facility]) 23.3 % 25.0-50.0 Below low normal LYM% [facility]) 0.9 % 0.0-4.0 BASO% [facility]) 4.3 % 0.0-5.0 EOS% [facility] ([facility]) ID Date Data Source [id number] 11/17/2019 03:05:00 PM EDT [facility] FASTING: UNKNOWNReceived: 11/16/2019 at 07:54:00 V6O: [facility], [address] [place] [address], [phone], Channing Hunt MD,PhD Name Value Range Interpretation Code Description Data Patricia rce(s) Supporting Document(s) Mycobacterium tuberculosis stimulated gamma interferon [Pres ence] in Blood SeeBelow [facility] Normal Value: NegativeA negative test re sult does not exclude the possibility ofexposure to or infection with Mycobacterium tuberculosis (M.tuberculosis). Patients with recent exposure to TBinfected individuals exhibiting a negative T- SPOT.TB resultshould be considered for retesting within 6 weeks or ifother relevant clinical symptoms indicate. Results fromT-SPOT.TB testing must be used in conjunction with eachindividual's epidemiological history, current medicalstatus, and results of other diagnostic evaluations. TheT-SPOT.TB test is qualitative and results are reported aspositive, borderline or negative, given that the testcontrols perform as expected. In line with the Centers forDisease Control and Prevention's 2010 recommendation toreport quantitative measurements alongside the qualitativeresult, the laboratory provides spot counts forinformational purposes only. The T-SPOT.TB test should notbe interpreted as a quantitative test.00 Gamma interferon negative control spot count [#] in Blood Passed [facility] Mitogen stimulated gamma interferon positive control s pot count [#] in Blood Passed [facility] ID Date Data Source [id number] 08/20/2019 02:50:41 PM EST [facility], PCName: Sera Aquino: 2Provider: Festus Oconnor: 08/19/2019 History of Present IllnessThe patient is still struggling with pain, stiffness and weakness. She is here for a Monocryl this injection into her right knee. Assessment Primary localized osteoarthritis of right knee (715.16) (M17.11) Right knee primary osteoarthritisPlanPlan for a moderate risk injection today she will follow-up in another 6 months for repeat injection. Plan Administered: Monovisc 88 MG/4ML Intra-articular Solution Prefilled Syringe Dose of 4 ML; Intra-articular; BOAZ = N; Administered by: Dorene Oconnor ED PHYSICIANS: 08/19/2019 12:00:00 AM; Last Updated By: Naty Bills; 08/19/2019 3:25:50 PM Signatures Electronically signed by : Dorene Oconnor NP; Aug 19 2019 4:01PM EST (Author) Electronically signed by : Saad Bolivar M.D.; Aug 20 2019 2:50PM EST Name Value Range Interpretation Code Description Data Patricia rce(s) Supporting Document(s) ID Date Data Source [id number] 08/16/2019 11:20:00 AM EST [facility] ([facility]) Name Value Range Interpretation Code Description Data Patricia rce(s) Supporting Document(s) 0.9 mg/dL 0.6-1.2 CREATININE [facility] ([facility]) >60 eGFR [facility] ([facility]) ID Date Data Source [id number] 08/16/2019 11:20:00 AM EST [facility] ([facility]) Name Value Range Interpretation Code Description Data Patricia rce(s) Supporting Document(s) 23 U/L 15-37 AST [facility] ([facility]) ID Date Data Source [id number] 08/16/2019 11:20:00 AM EST [facility] ([facility]) Name Value Range Interpretation Code Description Data Patricia rce(s) Supporting Document(s) 4.1 g/dL 3.4-4.4 ALB [facility] ([facility]) ID Date Data Source [id number] 08/16/2019 11:20:00 AM EST [facility] ([facility]) Name Value Range Interpretation Code Description Data Patricia rce(s) Supporting Document(s) 3 mm/Hr 0-20 ESR [facility] ([facility]) ID Date Data Source [id number] 08/16/2019 11:20:00 AM EST [facility] ([facility]) Name Value Range Interpretation Code Description Data Patricia rce(s) Supporting Document(s) 8.1 10*3/uL 3.7-10.1 WBC [facility] ([facility]) 5.29 10*6/uL 3.50-5.50 RBC [facility] ([facility]) 14.9 g/dL 12.0-16.0 HGB [facility] ([facility]) 47.0 % 36.0-48.0 HCT [facility] ([facility]) 88.9 fL 80.0-100.0 MCV [facility] ([facility]) 28.2 pg 26.0-34.0 MCH [facility] ([facility]) 12.4 % 10.0-15.0 RDW [facility] ([facility]) 31.7 g/dL 31.0-37.0 MCHC [facility] ([facility]) 7.1 fL 6.0-10.0 MPV [facility] ([facility]) 4.88 10*3/uL 2.10-8.00 SAVANAH# [facility] ([facility]) 253 10*3/uL 150-500 PLATELETS [facility] ([facility]) 2.18 10*3/uL 1.00-5.00 LYM# [facility] ([facility]) 0.66 10*3/uL 0.10-1.00 MONO# [facility] ([facility]) 0.3 10*3/uL 0.0-0.5 EOS# [facility] ([facility]) 60.3 % 50.0-80.0 SAVANAH% [facility]) 0.1 10*3/uL 0.0-0.2 BASO# [facility] ([facility]) 8.1 % 2.0-10.0 MONO% [facility]) 27.0 % 25.0-50.0 LYM% [facility]) 1.0 % 0.0-4.0 BASO% [facility] ([facility]) 3.6 % 0.0-5.0 EOS% [facility]) Procedure Social History Code Duration Value Status Description Data Source(s ) Smoking 07/13/2020 12:00:00 AM EST Never Smoker completed Never S moker eCW1 ([facility]) Smoking 06/18/2020 12:00:00 AM EST Never Smoker completed Never S moker eCW1 ([facility]) Smoking 06/18/2020 12:00:00 AM EST Never Smoker completed Never S moker eCW1 ([facility]) Smoking 06/18/2020 12:00:00 AM EST Never Smoker completed Never S moker eCW1 ([facility]) Caffeine Use Details 05/29/2020 12:00:00 AM EST completed [facility] ([facility]) 05/29/2020 12:00:00 AM EST Never smoked tobacco comple tobias Never smoked tobacco [facility] ([facility]) Smoking 05/29/2020 12:00:00 AM EST Never smoker completed Never s moker [facility] ([facility]) Smoking 04/06/2020 12:00:00 AM EDT Never Smoker completed Never S moker eCW1 ([facility]) Smoking 04/06/2020 12:00:00 AM EDT Never Smoker completed Never S moker eCW1 ([facility]) Smoking 04/06/2020 12:00:00 AM EDT Never Smoker completed Never S moker eCW1 ([facility]) Smoking 04/06/2020 12:00:00 AM EDT Never Smoker completed Never S moker eCW1 ([facility]) Smoking 04/06/2020 12:00:00 AM EDT Never Smoker completed Never S moker eCW1 ([facility]) Smoking 04/06/2020 12:00:00 AM EDT Never Smoker completed Never S moker eCW1 ([facility]) Smoking 02/14/2020 12:00:00 AM EDT Patient has never smoked co mpleted Patient has never smoked [facility] ([facility]) Smoking 01/03/2020 12:00:00 AM EDT Never Smoker completed Never S moker eCW1 ([facility]) Smoking 11/21/2019 12:00:00 AM EDT Never Smoker completed Never S moker eCW1 ([facility]) Caffeine Use Details 08/16/2019 12:00:00 AM EST completed [facility] ([facility]) Vital Signs ID Date Data Source UNK Name Value Range Interpretation Code Description Data Source(s) Diastolic blood pressure 81 mm[Hg] 81 mm[Hg] eCW1 ([facility]) Systolic blood pressure 123 mm[Hg] 123 mm[Hg] e CW1 ([facility]) Body temperature 96.6 [degF] 96.6 [degF] eCW1 ( [facility]) Respiratory rate 16 /min 16 /min eCW1 ([facility]) Heart rate 87 /min 87 /min eCW1 ([facility]) Body mass index (BMI) [Ratio] 39.82 kg/m2 39.82 kg/m2 eCW1 ([facility]) Body height [in_i] eCW1 ([facility]) Body weight 243 [lb_av] 243 [lb_av] eCW1 ([facility]) Diastolic blood pressure 84 mm[Hg] 84 mm[Hg] eCW1 ([facility]) Systolic blood pressure 130 mm[Hg] 130 mm[Hg] e CW1 ([facility]) Body temperature 97.4 [degF] 97.4 [degF] eCW1 ( [facility]) Respiratory rate 16 /min 16 /min eCW1 ([facility]) Heart rate 76 /min 76 /min eCW1 ([facility]) Body mass index (BMI) [Ratio] 39.82 kg/m2 39.82 kg/m2 eCW1 ([facility]) Body height [in_i] eCW1 ([facility]) Body weight 243 [lb_av] 243 [lb_av] eCW1 ([facility]) Body mass index (BMI) [Ratio] 38.37 kg/m2 Overweight 38.37 kg/m2 [facility] ([facility]) Diastolic blood pressure 88 mm[Hg] 88 mm[Hg] [facility] ([facility]) Systolic blood pressure 156 mm[Hg] 156 mm[Hg] N [facility] ([facility]) Body weight 111.130 kg 111.130 kg [facility] ([facility]) Body height 170.18 cm 170.18 cm [facility] ([facility]) Body mass index (BMI) [Ratio] 39.98 kg/m2 39.98 kg/m2 eCW1 ([facility]) Body height [in_i] eCW1 ([facility]) Body weight 244 [lb_av] 244 [lb_av] eCW1 ([facility]) Diastolic blood pressure 81 mm[Hg] 81 mm[Hg] eCW1 ([facility]) Systolic blood pressure 120 mm[Hg] 120 mm[Hg] e CW1 ([facility]) Body temperature 97.0 [degF] 97.0 [degF] eCW1 ( [facility]) Respiratory rate 16 /min 16 /min eCW1 ([facility]) Heart rate 77 /min 77 /min eCW1 ([facility]) Body mass index (BMI) [Ratio] 39.33 kg/m2 39.33 kg/m2 eCW1 ([facility]) Body height [in_i] eCW1 ([facility]) Body weight 240 [lb_av] 240 [lb_av] eCW1 ([facility]) Body mass index (BMI) [Ratio] 34.93 kg/m2 Overweight 34.93 kg/m2 [facility] ([facility]) Diastolic blood pressure 82 mm[Hg] 82 mm[Hg] [facility] ([facility]) Systolic blood pressure 140 mm[Hg] 140 mm[Hg] N [facility] ([facility]) Body weight 101.151 kg 101.151 kg [facility] ([facility]) Body height 170.18 cm 170.18 cm [facility] Body mass index (BMI) [Ratio] 38.7 kg/m2 38.7 k g/m2 [facility] ([facility]) Body weight 108.864 kg 108.864 kg [facility] ([facility]) Body weight 240.00 [lb_av] 240.00 [lb_av] MEDEN T ([facility]) Body height 66 [in_i] 66 [in_i] MEDENT ([facility] 5'6" Diastolic blood pressure 80 mm[Hg] 80 mm[Hg] MEDENT ([facility]) Systolic blood pressure 110 mm[Hg] 110 mm[Hg] M EDENT ([facility]) Diastolic blood pressure 80 mm[Hg] 80 mm[Hg] MEDENT ([facility]) Systolic blood pressure 110 mm[Hg] 110 mm[Hg] M EDENT ([facility]) Brush body weight 130 [lb_av] 130 [lb_av] MEDEN T [facility] Body mass index (BMI) [Ratio] 38.7 kg/m2 38.7 k g/m2 MEDENT ([facility] Body weight 240.00 [lb_av] 240.00 [lb_av] MEDEN T ([facility]) Body height 66 [in_i] 66 [in_i] MEDENT ([facility]) 5'6" Heart rate 76 /min 76 /min [facility] ([facility]) Diastolic blood pressure 100 mm[Hg] 100 mm[Hg] [facility] Systolic blood pressure 150 mm[Hg] 150 mm[Hg] M EDENT ([facility] Body surface area Derived from formula 2.17 m2 2.17 m2 MEDENT ([facility]) Body weight 110.225 kg 110.225 kg MEDENT ([facility]) Brush body weight 130 [lb_av] 130 [lb_av] MEDEN T ([facility]) Body mass index (BMI) [Ratio] 39.2 kg/m2 39.2 k g/m2 MEDENT ([facility]) Body weight 243.00 [lb_av] 243.00 [lb_av] MEDEN T ([facility]) Body height 66 [in_i] 66 [in_i] [facility], [facility] 5'6" Diastolic blood pressure 76 mm[Hg] 76 mm[Hg] [facility], ) Systolic blood pressure 142 mm[Hg] 142 mm[Hg] M EDENT ([facility], ) Diastolic blood pressure 80 mm[Hg] 80 mm[Hg] eCW1 ([facility]) Systolic blood pressure 126 mm[Hg] 126 mm[Hg] e CW1 ([facility]) Body mass index (BMI) [Ratio] 39.16 kg/m2 39.16 kg/m2 eCW1 ([facility]) Body height [in_i] eCW1 ([facility]) Body weight 239 [lb_av] 239 [lb_av] eCW1 ([facility]) Body mass index (BMI) [Ratio] 38.37 kg/m2 Overweight 38.37 kg/m2 Next[facility] ([facility]) Diastolic blood pressure 78 mm[Hg] 78 mm[Hg] [facility] ([facility]) Systolic blood pressure 126 mm[Hg] 126 mm[Hg] N extGen ([facility]) Body weight 111.130 kg 111.130 kg [facility] ([facility]) Body height 170.18 cm 170.18 cm [facility] ([facility]) Diastolic blood pressure 85 mm[Hg] 85 mm[Hg] eCW1 ([facility]) Systolic blood pressure 155 mm[Hg] 155 mm[Hg] e CW1 ([facility]) Body temperature 98.1 [degF] 98.1 [degF] eCW1 ( [facility]) Respiratory rate 16 /min 16 /min eCW1 ([facility]) Heart rate 79 /min 79 /min eCW1 ([facility]) Body mass index (BMI) [Ratio] 40.28 kg/m2 40.28 kg/m2 eCW1 ([facility]) Body height [in_us] eCW1 ([facility]) Body weight Measured 245.8 [lb_av] 245.8 [lb_av ] eCW1 ([facility]) Diastolic blood pressure 84 mm[Hg] 84 mm[Hg] eCW1 ([facility]) Systolic blood pressure 137 mm[Hg] 137 mm[Hg] e CW1 ([facility]) Body temperature 97.8 [degF] 97.8 [degF] eCW1 ( [facility]) Respiratory rate 16 /min 16 /min eCW1 ([facility]) Heart rate 85 /min 85 /min eCW1 ([facility]) Body mass index (BMI) [Ratio] 39.23 kg/m2 39.23 kg/m2 eCW1 ([facility]) Body height [in_us] eCW1 ([facility]) Body weight Measured 239.4 [lb_av] 239.4 [lb_av ] eCW1 ([facility]) Body mass index (BMI) [Ratio] 38.37 kg/m2 Overweight 38.37 kg/m2 [facility] ([facility]) Diastolic blood pressure 86 mm[Hg] 86 mm[Hg] [facility] ([facility]) Systolic blood pressure 128 mm[Hg] 128 mm[Hg] N extGen ([facility]) Body weight 111.130 kg 111.130 kg [facility] ([facility]) Body height 170.18 cm 170.18 cm [facility] ([facility]) Patient Treatment Plan of Care Planned Activity Planned Date Details Description Data Source (s) Rosuvastatin calcium 10 MG Oral Tablet 07/13/2020 12:00:00 AM EST eCW1 ([facility]) 1 ML secukinumab 150 MG/ML Auto-Injector [Cosentyx] 05/29/20 12:00:00 AM EST [facility] ([facility] 1 ML secukinumab 150 MG/ML Auto-Injector [Cosentyx] 04/27/20 12:00:00 AM EST [facility] ([facility]) Keppra 500 MG 03/24/2020 01:00:00 AM EDT [facility] ([facility]) Acetaminophen 325 MG 03/24/2020 01:00:00 AM EDT [facility]SM[facility] ([facility]) Keppra 250 MG 03/24/2020 01:00:00 AM EDT [facility] ([facility]) Percocet 2.5-325 MG 03/24/2020 01:00:00 AM EDT [facility] ([facility]) MiraLax 17 GM 03/24/2020 01:00:00 AM EDT [facility] ([facility]) Levothyroxine Sodium 75 MCG 03/24/2020 01:00:00 AM EDT [facility] ([facility]) Flonase Allergy Relief 50 MCG/ACT 03/24/2020 01:00:00 AM EDT [facility] ([facility]) Dexilant 60 MG 03/24/2020 [facility] Cosentyx Sensoready Pen 150 MG/ML 03/24/2020 01:00:00 AM EDT [facility]SM[facility] ([facility]) Aspirin 325 MG 03/24/2020 01:00[facility] meloxicam 7.5 MG Oral Tablet 01/23/2020 12:00:00 AM EDT [facility] ([facility]) 1 ML secukinumab 150 MG/ML Auto-Injector [Cosentyx] 12/06/19 12:00:00 AM EDT [facility] ([facility]) Prednisone 5 MG Oral Tablet 11/15/2019 12:00:00 AM EDT [facility] ([facility]) Cyclobenzaprine hydrochloride 5 MG Oral Tablet 11/06/2019 12:00:00 AM EDT [facility] ([facility]) meloxicam 7.5 MG Oral Tablet 11/01/2019 12:00:00 AM EDT [facility] ([facility]) Fluticasone Propionate 50 MCG/ACT 10/14/2019 12:00:00 AM EDT eCW1 ([facility]) Ciprofloxacin 250 MG Oral Tablet 09/12/2019 12:00:00 AM EDT eCW1 ([facility]) Cyclobenzaprine hydrochloride 5 MG Oral Tablet 09/10/2019 12:00:00 AM EDT [facility] ([facility]) 1 ML secukinumab 150 MG/ML Auto-Injector [Cosentyx] 09/09/19 12:00:00 AM EDT [facility] ([facility]) meloxicam 7.5 MG Oral Tablet 08/16/2019 12:00:00 AM EST [facility] ([facility]) 1 ML secukinumab 150 MG/ML Auto-Injector [Cosentyx] 08/16/19 12:00:00 AM EST [facility] ([facility]) Cyclobenzaprine hydrochloride 5 MG Oral Tablet 07/15/2019 12:00:00 AM EST [facility] ([facility]) 1 ML secukinumab 150 MG/ML Auto-Injector [Cosentyx] 05/13/20 12:00:00 AM EST [facility] ([facility]) meloxicam 7.5 MG Oral Tablet 05/13/2019 12:00:00 AM EST [facility] ([facility]) Cyclobenzaprine hydrochloride 5 MG Oral Tablet 05/13/2019 12:00:00 AM EST [facility] ([facility]) Aspirin 325 MG Delayed Release Oral Tablet [facility] ([facility])
[2020-07-24] MEDS ORDERED: fentaNYL 250 MCG/5 ML INJECTION (J3010) As Ordered ONE (13:45)
[2020-07-24] MEDS ORDERED: propofoL 200 MG/20 ML VIAL As Ordered ONE (13:45)
[2020-07-24] MEDS ORDERED: MIDAZOLAM INJ 2MG/2ML VIAL (J2250 PER 1MG) As Ordered ONE (13:45)
[2020-07-24] MEDS ORDERED: LIDOCAINE 2% 100MG/5ML SDV (FOR ANES.) As Ordered ONE (13:45)
[2020-07-24] MEDS ORDERED: ROCURONIUM BROMIDE 50 MG/5 ML VIAL As Ordered ONE ×2 (13:45→15:38)
[2020-07-24] MEDS ORDERED: dexameTHASONE 4 MG/ML 1ML VIAL (J1100 PER 1MG) As Ordered ONE (13:45)
[2020-07-24] MEDS ORDERED: ONDANSETRON 4MG/2ML VIAL As Ordered ONE (13:45)
[2020-07-24] MEDS ORDERED: BUPIVACAINE/EPIN 0.25% 30 ML VIAL As Ordered ONE (14:52)
[2020-07-24] MEDS ORDERED: PHENYLephrine 500MCG 5ML (100MCG/ML) SYRINGE As Ordered ONE ×2 (15:23→15:39)
[2020-07-24] MEDS ORDERED: ACETAMINOPHEN 1000MG 100ML IV BTL (OFIRMEV) (J0131 PER 10MG) As Ordered ONE (15:24)
[2020-07-24] MEDS ORDERED: SUGAMMADEX SODIUM 500 MG/5 ML VIAL (BRIDION) As Ordered ONE (15:41)
[2020-07-24] MEDS ORDERED: KETOROLAC 60MG 2ML VIAL As Ordered ONE (15:42)
[2020-07-24] MEDS ORDERED: LR 1,000 ML IV SCH (16:30)
[2020-07-24] MEDS ORDERED: ONDANSETRON 4MG/2ML VIAL IV PRN (16:30)
[2020-07-24] MEDS ORDERED: NORCO, ANEXSIA 5/325MG TABLET (HYDROcodone/ACETAMINOPHEN) PO PRN (16:30)
[2020-07-24] MEDS ORDERED: oxyCODONE 5MG TAB PO PRN (16:30)
[2020-07-24] MEDS: fentaNYL 100 MCG/2 ML INJECTION (J3010) IV PRN ×2 (16:49→16:54)
[2020-07-24 18:36] VITALS: BP 132/74
--- NOTE | 2020-07-25 16:38 | RO ---
OPERATIVE NOTE DATE OF OPERATION: 07/24/2020 PREOPERATIVE DIAGNOSIS: Acute cholecystitis. POSTOPERATIVE DIAGNOSIS: Acute cholecystitis. PROCEDURE: Robotic cholecystectomy. SURGEON: Pernell Gonzalez DO CERTIFIED NURSE OPERATING ROOM: None. ANESTHESIA: General. EBL: 5. COMPLICATIONS: None. INDICATIONS FOR PROCEDURE: The patient is a 60-year-old female who presents with right upper quadrant pain, found to have acute cholecystitis. Recommendation was to proceed with robotic cholecystectomy. Risks and benefits of the procedure not limited to but including bleeding, infection, hernia formation, damage to surrounding structures, need for further surgery were discussed in detail with the patient, informed consent was obtained and procedure was planned. DESCRIPTION OF PROCEDURE: The patient was brought back to operating room 7. After sufficient sedation, the abdomen was sterilely prepped and draped. Next, timeout was done to confirm proper patient and proper procedure. Following that, an 8 mm incision was made in the left upper quadrant, the Veress needle was inserted and the abdomen was insufflated to 15 mmHg. Veress needle was then removed and an 8-mm Optiview port was used to gain access to the abdomen. Once the abdomen was entered, three more ports were placed across the right upper quadrant. The gallbladder fundus was elevated up towards the right shoulder. Omental and peritoneum adhesions were carefully dissected free using a combination of blunt and sharp dissection. The gallbladder was elevated more towards the right upper quadrant and the cystic duct and cystic artery were carefully dissected free using a combination of blunt and sharp dissection. Once they were both clearly identified, they were both doubly clipped and cut. The gallbladder was then dissected free from the gallbladder fossa. It was removed intact, placed inside of a 5-mm Endo Catch bag and brought out through the right upper quadrant port site. The abdomen was then desufflated, skin incisions were closed with 4-0 Vicryl subcuticular sutures. The abdomen was cleaned and dried. Steri-Strips, 4x4, and tape were applied. VIKTORIA
== END 2020-07-24 18:36 | disposition home or self-care (01) ==
LOC: M SDC 12:25
PROVIDERS: ATTEND Surgery
DX: K81.0 Acute cholecystitis (principal); K57.92 Diverticulitis of intestine, part unspecified, without perforation or abscess without bleeding; E03.9 Hypothyroidism, unspecified; Z79.82 Long term (current) use of aspirin; Z79.899 Other long term (current) drug therapy; Z86.73 Personal history of transient ischemic attack (TIA), and cerebral infarction without residual deficits; L40.9 Psoriasis, unspecified; K21.9 Gastro-esophageal reflux disease without esophagitis
CPT/HCPCS: 36415; 47562; 84132; 88304; J0131; J1100; J1885; J2250; J2370; J2405; J3010; S2900

== ENCOUNTER → 2020-10-05 | Outpatient (REF) | payer OTHER ==
[~2020-10-05] MED LIST changes: -LR 1,000 ML IV ONE
[2020-10-05 18:04] LABS: ALBUMIN 3.9 GM/DL (3.2-5.2); ALT/SGPT 38 U/L (12-78); BILIRUBIN,TOTAL 0.6 MG/DL (0.2-1.0); BLOOD UREA NITROGEN 18 MG/DL (7-18); CALCIUM LEVEL 9.5 MG/DL (8.5-10.1); CARBON DIOXIDE LEVEL 29 MEQ/L (21-32); CHLORIDE LEVEL 101 MEQ/L (98-107); CHOLESTEROL LEVEL 108 MG/DL (<200); CHOLESTEROL RISK RATIO 4.153 (<5); GLOMERULAR FILTRATION RATE > 60.0 (>51); GLUCOSE, FASTING 194 MG/DL (70-100); HDL CHOLESTEROL 26 MG/DL (>40); LDL CHOLESTEROL 50 MG/DL (<100); NON-HDL-C 82 MG/DL; POTASSIUM SERUM 4.8 MEQ/L (3.5-5.1); SODIUM LEVEL 136 MEQ/L (136-145); TOTAL PROTEIN 6.2 GM/DL (6.4-8.2); TRIGLYCERIDES LEVEL 161 MG/DL (<150)
[2020-10-05 18:46] LABS: HEMOGLOBIN A1c 9.2 %
== END ==
LOC: M SFHCCLAY 10:57
PROVIDERS: ATTEND Family Medicine
DX: E78.2 Mixed hyperlipidemia (principal); E11.9 Type 2 diabetes mellitus without complications

== ENCOUNTER → 2020-11-24 | Outpatient (REF) ==
--- NOTE | 2020-11-24 13:32 | REPPI ---
INDICATION: DISABILITY DIAGNOSIS DETERMINATION COMPARISON: None. TECHNIQUE: AP, lateral, coned-down views of the lumbar spine. FINDINGS: Three views of the lumbosacral spine demonstrate satisfactory alignment and lordosis without acute fracture / compression injury or subluxation. Moderate multilevel degenerative changes include endplate sclerosis, osteophytosis, minimal disc space narrowing, and facet hypertrophy. Findings most pronounced at L3-4, and L2-3. IMPRESSION: 1. No acute fracture / compression injury or subluxation. 2. Moderate multilevel degenerative changes. <Electronically signed by Chad Rivas > 11/24/20 [id number]
--- NOTE | 2020-11-24 13:34 | REPPI ---
INDICATION: DISABILITY DIAGNOSIS DETERMINATION COMPARISON: None. TECHNIQUE: AP, lateral, bilateral oblique views left hand. FINDINGS: No evidence for acute or healed injury. Mild age-related degenerative changes include very subtle increased sclerosis at the 1st metacarpophalangeal joint and diffuse interphalangeal joints. The 1st interphalangeal joint also demonstrates a very small early osteophyte formation and the 1st metacarpophalangeal joint IMPRESSION: Generalized age-related degenerative changes suggested. <Electronically signed by Chad Rivas > 11/24/20 [id number]
== END ==
LOC: M PLAIMG 11:18
PROVIDERS: ATTEND Internal Medicine
DX: Z02.71 Encounter for disability determination (principal)

== ENCOUNTER → 2020-11-24 | Outpatient (CLI) | payer OTHER ==
--- NOTE | 2020-11-24 17:35 | REPMRS ---
Patient History The patient states she had a clinical breast exam in November 2020. Family history of breast cancer at age 50 or over in maternal aunt, colorectal cancer at age 50 or over in maternal uncle, colorectal cancer at age 50 or over in maternal uncle. Took estrogen for 1 year. Tomosynthesis is performed. Volpara breast density is a. [facility] lifetime risk of breast cancer 11.6%. Patient states no breast complaints. Patient has signed the MRS history sheet. Digital Woman Screen Mammo: November 24, 2020 - Exam #: [id number] Bilateral CC and MLO view(s) were taken. Technologist: Eva Rodney, Technologist Prior study comparison: November 21, 2019, bilateral digital woman screen mammo performed at [facility]. August 01, 2018, bilateral digital woman screen mammo performed at [facility]. FINDINGS: There are scattered fibroglandular densities. There has been no change in the appearance of the mammogram from the prior studies. There is a mild amount of residual fibroglandular tissue which is fairly symmetric. There is no interval development of dominant mass, architectural distortion, or clustered microcalcification suggestive of malignancy. Assessment: BI-RADS/ACR category 1 mammogram. Negative Mammogram. Recommendation Routine screening mammogram in 1 year (for women over age 40). This mammogram was interpreted with the aid of an FDA-approved computer-aided dectection system. Electronically Signed By: Pernell Tejeda MD 11/24/20 [id number]
== END ==
LOC: M WHC 14:55
PROVIDERS: ATTEND Nurse Practitioner Women's Health
DX: Z12.31 Encounter for screening mammogram for malignant neoplasm of breast (principal)

== ENCOUNTER → 2021-02-03 | Outpatient (REF) | payer OTHER ==
[2021-02-03 16:50] LABS: ALT/SGPT 38 U/L (12-78); BILIRUBIN,TOTAL 0.5 MG/DL (0.2-1.0); BLOOD UREA NITROGEN 12 MG/DL (7-18); CALCIUM LEVEL 8.7 MG/DL (8.5-10.1); CARBON DIOXIDE LEVEL 29 MEQ/L (21-32); CHLORIDE LEVEL 104 MEQ/L (98-107); CREATININE FOR GFR 0.89 MG/DL (0.55-1.30); GLOMERULAR FILTRATION RATE > 60.0 (>51); GLUCOSE, FASTING 119 MG/DL (70-100); POTASSIUM SERUM 4.4 MEQ/L (3.5-5.1); SODIUM LEVEL 139 MEQ/L (136-145); TOTAL PROTEIN 6.7 GM/DL (6.4-8.2)
[2021-02-03 16:51] LABS: HEMOGLOBIN A1c 6.4 %
== END ==
LOC: M SFHCCLAY 10:53
PROVIDERS: ATTEND Family Medicine
DX: E11.9 Type 2 diabetes mellitus without complications (principal); E03.9 Hypothyroidism, unspecified

== ENCOUNTER → 2021-04-12 | Outpatient (CLI) | payer OTHER | LOC: M PAIN 11:00 | PROVIDERS: ATTEND Nurse Practitioner Family | DX: M79.18 Myalgia, other site (principal); L40.50 Arthropathic psoriasis, unspecified; K21.9 Gastro-esophageal reflux disease without esophagitis; M17.11 Unilateral primary osteoarthritis, right knee; E03.9 Hypothyroidism, unspecified; E11.9 Type 2 diabetes mellitus without complications; E78.5 Hyperlipidemia, unspecified; I67.5 Moyamoya disease; Z79.82 Long term (current) use of aspirin; Z79.899 Other long term (current) drug therapy; Z79.84 Long term (current) use of oral hypoglycemic drugs; J30.1 Allergic rhinitis due to pollen ==

== ENCOUNTER → 2021-05-10 | Outpatient (REF) | payer OTHER ==
[2021-05-10 16:43] LABS: ALBUMIN 3.7 GM/DL (3.2-5.2); ALT/SGPT 33 U/L (12-78); BILIRUBIN,TOTAL 0.4 MG/DL (0.2-1.0); BLOOD UREA NITROGEN 13 MG/DL (7-18); CARBON DIOXIDE LEVEL 29 MEQ/L (21-32); CHLORIDE LEVEL 104 MEQ/L (98-107); CREATININE FOR GFR 0.83 MG/DL (0.55-1.30); GLOMERULAR FILTRATION RATE > 60.0 (>51); GLUCOSE, FASTING 145 MG/DL (70-100); POTASSIUM SERUM 4.4 MEQ/L (3.5-5.1); SODIUM LEVEL 139 MEQ/L (136-145); TOTAL PROTEIN 6.5 GM/DL (6.4-8.2)
[2021-05-10 17:07] LABS: HEMOGLOBIN A1c 6.3 %
== END ==
LOC: M SFHCCLAY 10:40
PROVIDERS: ATTEND Family Medicine
DX: E11.9 Type 2 diabetes mellitus without complications (principal)

== ENCOUNTER → 2021-07-20 | Outpatient (REF) | LOC: M PLAIMG 14:07 | PROVIDERS: ATTEND Internal Medicine | DX: M17.11 Unilateral primary osteoarthritis, right knee (principal); M25.561 Pain in right knee ==

== ENCOUNTER → 2021-07-30 | Outpatient (REF) | payer OTHER ==
[2021-07-30 12:16] LABS: APPEARANCE, URINE CLEAR (CLEAR); BACTERIA, URINE AUTO NEGATIVE (NEGATIVE); BILIRUBIN, URINE AUTO NEGATIVE (NEGATIVE); BLOOD, URINE BLOOD NEGATIVE (NEGATIVE); COLOR, URINE STRAW (YELLOW); GLUCOSE, URINE (UA) AUTO NEGATIVE (NEGATIVE); KETONE, URINE AUTO NEGATIVE (NEGATIVE); LEUKOCYTE ESTERASE, URINE AUTO NEGATIVE (NEGATIVE); NITRITE, URINE AUTO NEGATIVE (NEGATIVE); PROTEIN, URINE AUTO NEGATIVE (NEGATIVE); RBC, URINE AUTO 0 /HPF (0-3); SPECIFIC GRAVITY URINE AUTO 1.005 (1.002-1.035); SQUAMOUS EPITHELIAL CELL UR AU 0 /HPF (0-6); UROBILINOGEN, URINE AUTO 0.2 mg/dL (0.0-2.0); WBC, URINE AUTO 0 /HPF (0-3)
== END ==
LOC: M LAB REF 11:56
PROVIDERS: ATTEND Physician Assistant
DX: N39.0 Urinary tract infection, site not specified (principal)

== ENCOUNTER → 2021-08-10 | Outpatient (REF) | payer OTHER ==
[2021-08-10 12:31] LABS: HEMOGLOBIN A1c 6.6 %
[2021-08-10 12:54] LABS: MALB URINE SIEMENS 5.6 MG/L; MAU/CREAT RATIO 4.7 MCG/MG (0.0-30.0)
[2021-08-10 12:57] LABS: ALBUMIN 3.7 GM/DL (3.2-5.2); ALT/SGPT 29 U/L (12-78); BILIRUBIN,TOTAL 0.4 MG/DL (0.2-1.0); BLOOD UREA NITROGEN 14 MG/DL (7-18); CALCIUM LEVEL 8.7 MG/DL (8.5-10.1); CARBON DIOXIDE LEVEL 29 MEQ/L (21-32); CHLORIDE LEVEL 105 MEQ/L (98-107); CHOLESTEROL LEVEL 107 MG/DL (<200); CHOLESTEROL RISK RATIO 3.821 (<5); CREATININE FOR GFR 0.75 MG/DL (0.55-1.30); GLOMERULAR FILTRATION RATE > 60.0 (>51); GLUCOSE, FASTING 140 MG/DL (70-100); HDL CHOLESTEROL 28 MG/DL (>40); LDL CHOLESTEROL 57 MG/DL (<100); NON-HDL-C 79 MG/DL; POTASSIUM SERUM 5.2 MEQ/L (3.5-5.1); SODIUM LEVEL 137 MEQ/L (136-145); TRIGLYCERIDES LEVEL 112 MG/DL (<150)
== END ==
LOC: M SFHCCLAY 08:00
PROVIDERS: ATTEND Family Medicine
DX: E11.9 Type 2 diabetes mellitus without complications (principal); E03.9 Hypothyroidism, unspecified

== ENCOUNTER → 2021-10-29 | Outpatient (REF) | payer OTHER ==
[2021-10-29 11:52] LABS: ALBUMIN 3.8 GM/DL (3.2-5.2); ALT/SGPT 30 U/L (12-78); BILIRUBIN,TOTAL 0.6 MG/DL (0.2-1.0); BLOOD UREA NITROGEN 17 MG/DL (7-18); CALCIUM LEVEL 9.9 MG/DL (8.5-10.1); CARBON DIOXIDE LEVEL 28 MEQ/L (21-32); CHLORIDE LEVEL 106 MEQ/L (98-107); GLOMERULAR FILTRATION RATE > 60.0 (>51); GLUCOSE, FASTING 129 MG/DL (70-100); POTASSIUM SERUM 4.8 MEQ/L (3.5-5.1); SODIUM LEVEL 139 MEQ/L (136-145); TOTAL PROTEIN 6.5 GM/DL (6.4-8.2)
[2021-10-29 12:03] LABS: HEMOGLOBIN A1c 6.5 %
== END ==
LOC: M SFHCCLAY 09:46
PROVIDERS: ATTEND Family Medicine
DX: E11.9 Type 2 diabetes mellitus without complications (principal); E03.9 Hypothyroidism, unspecified

== ENCOUNTER → 2021-11-05 | Outpatient (CLI) | payer OTHER | LOC: M CLY 10:03 | PROVIDERS: ATTEND Family Medicine | DX: R05.9 Cough, unspecified (principal) ==

== ENCOUNTER → 2021-11-25 | Outpatient (REF) | payer OTHER | LOC: M PLALAB 16:08 | PROVIDERS: ATTEND Advanced Practice Midwife | DX: N89.8 Other specified noninflammatory disorders of vagina (principal) ==

== ENCOUNTER → 2021-11-25 | Outpatient (CLI) | payer OTHER | LOC: M WHC 14:07 | PROVIDERS: ATTEND Advanced Practice Midwife | DX: Z12.31 Encounter for screening mammogram for malignant neoplasm of breast (principal); Z80.3 Family history of malignant neoplasm of breast; Z80.0 Family history of malignant neoplasm of digestive organs ==

== ENCOUNTER → 2022-01-17 | Outpatient (REF) | payer OTHER ==
[2022-01-17 17:21] LABS: HEMOGLOBIN A1c 6.6 %
[2022-01-17 17:22] LABS: BASO # 0.1 10^3/uL (0.0-0.2); BASO % 1.2 % (0.0-1.0); EOS # 0.6 10^3/uL (0.0-0.5); EOS % 9.5 % (0.0-3.0); HEMATOCRIT 41.7 % (36.0-47.0); HEMOGLOBIN 13.5 g/dl (12.0-15.5); LYMPH % 15.9 % (24.0-44.0); MEAN CORPUSCULAR HEMOGLOBIN 28.2 pg (27.0-33.0); MEAN CORPUSCULAR HGB CONC 32.4 g/dl (32.0-36.5); MEAN CORPUSCULAR VOLUME 87.1 fl (80.0-96.0); MONO % 15.7 % (2.0-8.0); NEUTROPHILS # 3.7 10^3/uL (1.5-8.5); NEUTROPHILS % 57.2 % (36.0-66.0); PLATELET COUNT, AUTOMATED 143 10^3/uL (150-450); RED BLOOD COUNT 4.79 10^6/uL (4.00-5.40); WHITE BLOOD COUNT 6.4 10^3/uL (4.0-10.0)
[2022-01-17 17:31] LABS: ALBUMIN 3.3 GM/DL (3.2-5.2); ALT/SGPT 195 U/L (12-78); BILIRUBIN,TOTAL 0.8 MG/DL (0.2-1.0); BLOOD UREA NITROGEN 13 MG/DL (7-18); CALCIUM LEVEL 9.6 MG/DL (8.5-10.1); CARBON DIOXIDE LEVEL 29 MEQ/L (21-32); CHLORIDE LEVEL 105 MEQ/L (98-107); CREATININE FOR GFR 0.83 MG/DL (0.55-1.30); GLOMERULAR FILTRATION RATE > 60.0 (>51); GLUCOSE, FASTING 175 MG/DL (70-100); MAGNESIUM LEVEL 1.9 MG/DL (1.8-2.4); POTASSIUM SERUM 5.4 MEQ/L (3.5-5.1); SODIUM LEVEL 139 MEQ/L (136-145)
== END ==
LOC: M SFHCCLAY 11:08
PROVIDERS: ATTEND Family Medicine
DX: E11.9 Type 2 diabetes mellitus without complications (principal); E03.9 Hypothyroidism, unspecified; K21.9 Gastro-esophageal reflux disease without esophagitis

== ENCOUNTER → 2022-01-27 | Outpatient (REF) | payer OTHER ==
[2022-01-27 17:46] LABS: BASO # 0.1 10^3/uL (0.0-0.2); BASO % 0.7 % (0.0-1.0); EOS # 0.3 10^3/uL (0.0-0.5); HEMATOCRIT 40.9 % (36.0-47.0); HEMOGLOBIN 12.9 g/dl (12.0-15.5); MEAN CORPUSCULAR HEMOGLOBIN 28.1 pg (27.0-33.0); MEAN CORPUSCULAR HGB CONC 31.5 g/dl (32.0-36.5); MEAN CORPUSCULAR VOLUME 89.1 fl (80.0-96.0); MONO # 0.9 10^3/uL (0.0-0.8); MONO % 11.2 % (2.0-8.0); NEUTROPHILS # 4.9 10^3/uL (1.5-8.5); PLATELET COUNT, AUTOMATED 298 10^3/uL (150-450); RED BLOOD COUNT 4.59 10^6/uL (4.00-5.40); WHITE BLOOD COUNT 8.2 10^3/uL (4.0-10.0)
[2022-01-27 18:01] LABS: ALBUMIN 3.5 GM/DL (3.2-5.2); ALT/SGPT 38 U/L (12-78); BILIRUBIN,TOTAL 0.4 MG/DL (0.2-1.0); BLOOD UREA NITROGEN 19 MG/DL (7-18); CALCIUM LEVEL 9.6 MG/DL (8.5-10.1); CARBON DIOXIDE LEVEL 30 MEQ/L (21-32); CHLORIDE LEVEL 105 MEQ/L (98-107); CREATININE FOR GFR 0.93 MG/DL (0.55-1.30); GLOMERULAR FILTRATION RATE > 60.0 (>51); GLUCOSE, FASTING 120 MG/DL (70-100); POTASSIUM SERUM 5.3 MEQ/L (3.5-5.1); SODIUM LEVEL 139 MEQ/L (136-145); TOTAL PROTEIN 6.3 GM/DL (6.4-8.2)
[2022-01-27 18:54] LABS: HEPATITIS B SURFACE ANTIGEN NEGATIVE (NEGATIVE)
[2022-01-27 19:21] LABS: HEPATITIS B CORE ANTIBODY IGM NEGATIVE (NEGATIVE); HEPATITIS C VIRUS ABY INDEX < 0.0 INDEX (<0.8)
== END ==
LOC: M SFHCCLAY 11:08
PROVIDERS: ATTEND Family Medicine
DX: R79.89 Other specified abnormal findings of blood chemistry (principal)

== ENCOUNTER → 2022-02-16 | Outpatient (REF) | payer OTHER ==
[2022-02-16 17:36] LABS: APPEARANCE, URINE MANUAL CLEAR (CLEAR); BASO % 0.4 % (0.0-1.0); COLOR, URINE MANUAL YELLOW (YELLOW); EOS # 0.2 10^3/uL (0.0-0.5); EOS % 2.3 % (0.0-3.0); HEMATOCRIT 41.5 % (36.0-47.0); HEMOGLOBIN 13.4 g/dl (12.0-15.5); LYMPH % 22.2 % (24.0-44.0); MEAN CORPUSCULAR HEMOGLOBIN 28.7 pg (27.0-33.0); MEAN CORPUSCULAR HGB CONC 32.3 g/dl (32.0-36.5); MEAN CORPUSCULAR VOLUME 88.9 fl (80.0-96.0); MONO # 0.8 10^3/uL (0.0-0.8); MONO % 9.3 % (2.0-8.0); NEUTROPHILS # 5.8 10^3/uL (1.5-8.5); NEUTROPHILS % 64.2 % (36.0-66.0); PLATELET COUNT, AUTOMATED 237 10^3/uL (150-450); RED BLOOD COUNT 4.67 10^6/uL (4.00-5.40)
[2022-02-16 17:38] LABS: BILIRUBIN, URINE MANUAL NEGATIVE (NEGATIVE); BLOOD URINE MANUAL NEGATIVE (NEGATIVE); GLUCOSE, URINE (UA) MANUAL NEGATIVE (NEGATIVE); KETONE, URINE MANUAL NEGATIVE (NEGATIVE); NITRITE, URINE MANUAL NEGATIVE (NEGATIVE); PROTEIN, URINE MANUAL NEGATIVE (NEGATIVE); UROBILINOGEN, URINE MANUAL NORMAL (NORMAL)
[2022-02-16 17:39] LABS: LEUKOCYTE ESTERASE, URINE MAN NEGATIVE (NEGATIVE)
[2022-02-16 17:54] LABS: ALBUMIN 3.9 GM/DL (3.2-5.2); ALT/SGPT 36 U/L (12-78); BILIRUBIN,TOTAL 0.4 MG/DL (0.2-1.0); BLOOD UREA NITROGEN 16 MG/DL (7-18); CALCIUM LEVEL 9.7 MG/DL (8.8-10.2); CARBON DIOXIDE LEVEL 26 MEQ/L (21-32); CHLORIDE LEVEL 101 MEQ/L (98-107); CREATININE FOR GFR 0.84 MG/DL (0.55-1.30); GLOMERULAR FILTRATION RATE > 60.0 (>45); GLUCOSE, FASTING 127 MG/DL (70-100); IRON (FE) 67 UG/DL (50-170); POTASSIUM SERUM 4.8 MEQ/L (3.5-5.1); SODIUM LEVEL 135 MEQ/L (136-145); TOTAL PROTEIN 6.4 GM/DL (6.4-8.2)
[2022-02-16 17:57] LABS: INR 0.94
[2022-02-16 17:58] LABS: PARTIAL THROMBOPLASTIN TIME 27.2 SECONDS (25.9-37.0)
== END ==
LOC: M SFHCCLAY 10:31
PROVIDERS: ATTEND Family Medicine
DX: Z01.818 Encounter for other preprocedural examination (principal); M15.0 Primary generalized (osteo)arthritis

== ENCOUNTER → 2022-05-30 | Outpatient (REF) | payer OTHER ==
[2022-05-30 18:09] LABS: MAGNESIUM LEVEL 1.9 MG/DL (1.8-2.4)
[2022-05-30 18:10] LABS: ALBUMIN 3.8 G/DL (3.2-5.2); ALKALINE PHOSPHATASE 82 U/L (46-116); ALT/SGPT 23 U/L (7.0-40); AST/SGOT 18 U/L (<34); BILIRUBIN,TOTAL 0.4 MG/DL (0.3-1.2); BLOOD UREA NITROGEN 18 MG/DL (9-23); CALCIUM LEVEL 9.7 MG/DL (8.3-10.6); CARBON DIOXIDE LEVEL 30 MMOL/L (20-31); CHLORIDE LEVEL 103 MMOL/L (98-107); CREATININE FOR GFR 0.73 MG/DL (0.55-1.30); GLOMERULAR FILTRATION RATE > 60.0 (>45); GLUCOSE, FASTING 107 MG/DL (74-106); SODIUM LEVEL 138 MMOL/L (136-145); TOTAL PROTEIN 6.4 G/DL (5.7-8.2)
[2022-05-30 18:12] LABS: THYROID STIMULATING HORMONE 1.576 uIU/ML (0.55-4.78)
[2022-05-30 19:09] LABS: HEMOGLOBIN A1c 5.6 % (4.0-6.0)
== END ==
LOC: M SFHCCLAY 11:29
PROVIDERS: ATTEND Family Medicine
DX: E11.9 Type 2 diabetes mellitus without complications (principal); K21.9 Gastro-esophageal reflux disease without esophagitis; E03.9 Hypothyroidism, unspecified

== ENCOUNTER → 2022-06-07 | Outpatient (CLI) | payer OTHER ==
[~2022-06-07] MED LIST changes: +METHACHOLINE KIT INH ONE
== END ==
LOC: M CARPUL 13:48
PROVIDERS: ATTEND Physician Assistant
DX: R05.9 Cough, unspecified (principal)
CPT/HCPCS: 94070; J7674

== ENCOUNTER → 2022-10-03 | Outpatient (REF) | payer OTHER ==
[~2022-10-03] MED LIST changes: -METHACHOLINE KIT INH ONE
[2022-10-03 19:53] LABS: ALKALINE PHOSPHATASE 79 U/L (46-116); ALT/SGPT 22 U/L (7.0-40); AST/SGOT 16 U/L (<34); BILIRUBIN,TOTAL 0.3 MG/DL (0.3-1.2); BLOOD UREA NITROGEN 20 MG/DL (9-23); CALCIUM LEVEL 9.5 MG/DL (8.3-10.6); CARBON DIOXIDE LEVEL 29 MMOL/L (20-31); CHLORIDE LEVEL 103 MMOL/L (98-107); CHOLESTEROL LEVEL 97 MG/DL (<200); CHOLESTEROL RISK RATIO 3.02 (<5); CREATININE FOR GFR 0.83 MG/DL (0.55-1.30); GLOMERULAR FILTRATION RATE > 60.0 (>45); GLUCOSE, FASTING 82 MG/DL (74-106); HDL CHOLESTEROL 32.1 MG/DL (>40); LDL CHOLESTEROL 39.7 MG/DL (<100); NON-HDL-C 64.9 MG/DL; POTASSIUM SERUM 5.3 MMOL/L (3.5-5.1); SODIUM LEVEL 135 MMOL/L (136-145); TOTAL PROTEIN 6.6 G/DL (5.7-8.2); TRIGLYCERIDES LEVEL 126 MG/DL (<150)
[2022-10-03 19:55] LABS: THYROID STIMULATING HORMONE 0.856 uIU/ML (0.55-4.78)
[2022-10-03 20:03] LABS: HEMOGLOBIN A1c 5.8 % (4.0-6.0)
== END ==
LOC: M SFHCCLAY 13:58
PROVIDERS: ATTEND Family Medicine
DX: E78.2 Mixed hyperlipidemia (principal); E03.9 Hypothyroidism, unspecified; E11.9 Type 2 diabetes mellitus without complications

== ENCOUNTER → 2023-02-08 | Outpatient (REF) | payer OTHER ==
[2023-02-08 13:19] LABS: THYROID STIMULATING HORMONE 2.416 uIU/ML (0.55-4.78)
[2023-02-08 13:20] LABS: ALBUMIN 3.9 G/DL (3.2-5.2); ALKALINE PHOSPHATASE 76 U/L (46-116); ALT/SGPT 20 U/L (7.0-40); AST/SGOT 10 U/L (<34); BILIRUBIN,TOTAL 0.5 MG/DL (0.3-1.2); BLOOD UREA NITROGEN 17 MG/DL (9-23); CALCIUM LEVEL 9.4 MG/DL (8.3-10.6); CARBON DIOXIDE LEVEL 30 MMOL/L (20-31); CHLORIDE LEVEL 103 MMOL/L (98-107); CREATININE FOR GFR 0.78 MG/DL (0.55-1.30); GLOMERULAR FILTRATION RATE > 60.0 (>45); GLUCOSE, FASTING 125 MG/DL (74-106); POTASSIUM SERUM 4.8 MMOL/L (3.5-5.1); SODIUM LEVEL 141 MMOL/L (136-145); TOTAL PROTEIN 6.4 G/DL (5.7-8.2)
[2023-02-08 13:33] LABS: HEMOGLOBIN A1c 5.8 % (4.0-6.0)
== END ==
LOC: M SFHCCLAY 07:13
PROVIDERS: ATTEND Family Medicine
DX: E11.9 Type 2 diabetes mellitus without complications (principal); E03.9 Hypothyroidism, unspecified

== ENCOUNTER → 2023-08-10 | Outpatient (REF) | payer MEDICARE, OTHER ==
[2023-08-10 18:20] LABS: HEMOGLOBIN A1c 6.3 % (4.0-6.0)
[2023-08-10 18:33] LABS: ALBUMIN 3.8 G/DL (3.2-5.2); ALKALINE PHOSPHATASE 77 U/L (46-116); ALT/SGPT 26 U/L (7.0-40); AST/SGOT 14 U/L (<34); BILIRUBIN,TOTAL 0.6 MG/DL (0.3-1.2); BLOOD UREA NITROGEN 17 MG/DL (9-23); CALCIUM LEVEL 9.6 MG/DL (8.3-10.6); CARBON DIOXIDE LEVEL 29 MMOL/L (20-31); CHLORIDE LEVEL 106 MMOL/L (98-107); CHOLESTEROL LEVEL 95 MG/DL (<200); CHOLESTEROL RISK RATIO 3.65 (<5); CREATININE FOR GFR 0.75 MG/DL (0.55-1.30); GLOMERULAR FILTRATION RATE > 60.0 (>45); GLUCOSE, FASTING 138 MG/DL (74-106); LDL CHOLESTEROL 48.2 MG/DL (<100); POTASSIUM SERUM 5.4 MMOL/L (3.5-5.1); SODIUM LEVEL 137 MMOL/L (136-145); THYROID STIMULATING HORMONE 1.126 uIU/ML (0.55-4.78); TOTAL PROTEIN 6.4 G/DL (5.7-8.2); TRIGLYCERIDES LEVEL 104 MG/DL (<150)
== END ==
LOC: M SFHCCLAY 11:04
PROVIDERS: ATTEND Family Medicine
DX: E11.9 Type 2 diabetes mellitus without complications (principal); E03.9 Hypothyroidism, unspecified

== ENCOUNTER → 2024-01-25 | Outpatient (REF) | payer MEDICARE, OTHER ==
[2024-01-25 17:19] LABS: HEMOGLOBIN A1c 7.1 % (4.0-6.0)
[2024-01-25 17:34] LABS: CREATININE, URINE 182.4 MG/DL
[2024-01-25 17:35] LABS: MAU/CREAT RATIO 4.3 MCG/MG (0.0-30.0)
[2024-01-25 17:37] LABS: ALBUMIN 3.8 G/DL (3.2-5.2); ALKALINE PHOSPHATASE 83 U/L (46-116); ALT/SGPT 27 U/L (7.0-40); AST/SGOT 15 U/L (<34); BILIRUBIN,TOTAL 0.6 MG/DL (0.3-1.2); BLOOD UREA NITROGEN 14 MG/DL (9-23); CALCIUM LEVEL 9.6 MG/DL (8.3-10.6); CARBON DIOXIDE LEVEL 30 MMOL/L (20-31); CHLORIDE LEVEL 104 MMOL/L (98-107); CREATININE FOR GFR 0.83 MG/DL (0.55-1.30); GLOMERULAR FILTRATION RATE > 60.0 (>45); GLUCOSE, FASTING 171 MG/DL (74-106); SODIUM LEVEL 139 MMOL/L (136-145); THYROID STIMULATING HORMONE 1.368 uIU/ML (0.55-4.78); TOTAL PROTEIN 6.7 G/DL (5.7-8.2); VITAMIN B12 LEVEL 412 PG/ML (211-911)
== END ==
LOC: M SFHCCLAY 13:09
PROVIDERS: ATTEND Family Medicine
DX: E11.9 Type 2 diabetes mellitus without complications (principal); E03.9 Hypothyroidism, unspecified

== ENCOUNTER → 2024-04-25 | Outpatient (REF) | payer MEDICARE, OTHER ==
[2024-04-25 12:00] LABS: HEMOGLOBIN A1c 6.9 % (4.0-6.0)
[2024-04-25 12:05] LABS: ALBUMIN 3.7 G/DL (3.2-5.2); ALKALINE PHOSPHATASE 77 U/L (35-104); ALT/SGPT 29 U/L (7.0-40); AST/SGOT 15 U/L (<34); BILIRUBIN,TOTAL 0.6 MG/DL (0.3-1.2); BLOOD UREA NITROGEN 13 MG/DL (9-23); CALCIUM LEVEL 9.6 MG/DL (8.3-10.6); CARBON DIOXIDE LEVEL 29 MMOL/L (20-31); CHLORIDE LEVEL 105 MMOL/L (98-107); CREATININE FOR GFR 0.76 MG/DL (0.55-1.30); GLOMERULAR FILTRATION RATE > 60.0 (>45); GLUCOSE, FASTING 157 MG/DL (74-106); POTASSIUM SERUM 4.7 MMOL/L (3.5-5.1); SODIUM LEVEL 140 MMOL/L (136-145); TOTAL PROTEIN 6.6 G/DL (5.7-8.2)
== END ==
LOC: M SFHCCLAY 08:15
PROVIDERS: ATTEND Family Medicine
DX: E11.9 Type 2 diabetes mellitus without complications (principal)

== ENCOUNTER → 2024-05-02 | Outpatient (CLI) | payer MEDICARE, OTHER | LOC: M CLY 15:02 | PROVIDERS: ATTEND Family Medicine | DX: Z53.9 Procedure and treatment not carried out, unspecified reason (principal) ==

== ENCOUNTER → 2024-05-02 | Outpatient (CLI) | payer MEDICARE, OTHER | LOC: M CLY 15:24 | PROVIDERS: ATTEND Family Medicine | DX: M79.672 Pain in left foot (principal) ==

== ENCOUNTER → 2024-07-18 | Outpatient (REF) | payer MEDICARE, OTHER ==
[2024-07-18 17:43] LABS: HEMOGLOBIN A1c 7.1 % (4.0-6.0)
[2024-07-18 17:55] LABS: ALBUMIN 3.9 G/DL (3.2-5.2); ALKALINE PHOSPHATASE 83 U/L (35-104); ALT/SGPT 38 U/L (7.0-40); AST/SGOT 24 U/L (<34); BILIRUBIN,TOTAL 0.6 MG/DL (0.3-1.2); BLOOD UREA NITROGEN 16 MG/DL (9-23); CALCIUM LEVEL 9.4 MG/DL (8.3-10.6); CARBON DIOXIDE LEVEL 27 MMOL/L (20-31); CHLORIDE LEVEL 105 MMOL/L (98-107); CHOLESTEROL LEVEL 100 MG/DL (<200); CHOLESTEROL RISK RATIO 3.73 (<5); CREATININE FOR GFR 0.77 MG/DL (0.55-1.30); GLOMERULAR FILTRATION RATE > 60.0 (>45); GLUCOSE, FASTING 140 MG/DL (74-106); HDL CHOLESTEROL 26.8 MG/DL (>40); LDL CHOLESTEROL 47.8 MG/DL (<100); NON-HDL-C 73.2 MG/DL; POTASSIUM SERUM 5.2 MMOL/L (3.5-5.1); SODIUM LEVEL 138 MMOL/L (136-145); TOTAL PROTEIN 6.9 G/DL (5.7-8.2); TRIGLYCERIDES LEVEL 127 MG/DL (<150)
[2024-07-18 17:57] LABS: FREE T4 1.17 NG/DL (0.89-1.76)
== END ==
LOC: M SFHCCLAY 11:10
PROVIDERS: ATTEND Family Medicine
DX: E03.9 Hypothyroidism, unspecified (principal); E11.9 Type 2 diabetes mellitus without complications; E78.2 Mixed hyperlipidemia

== ENCOUNTER → 2024-10-16 | Outpatient (REF) | payer MEDICARE, OTHER ==
[2024-10-16 18:15] LABS: ALBUMIN 3.9 G/DL (3.2-5.2); ALKALINE PHOSPHATASE 80 U/L (35-104); ALT/SGPT 38 U/L (7.0-40); AST/SGOT 20 U/L (<34); BILIRUBIN,TOTAL 0.6 MG/DL (0.3-1.2); BLOOD UREA NITROGEN 14 MG/DL (9-23); CALCIUM LEVEL 9.1 MG/DL (8.3-10.6); CARBON DIOXIDE LEVEL 30 MMOL/L (20-31); CHLORIDE LEVEL 102 MMOL/L (98-107); CREATININE FOR GFR 0.68 MG/DL (0.55-1.30); GLOMERULAR FILTRATION RATE > 90.0 (>45); GLUCOSE, FASTING 150 MG/DL (74-106); POTASSIUM SERUM 5.3 MMOL/L (3.5-5.1); SODIUM LEVEL 137 MMOL/L (136-145); TOTAL PROTEIN 6.8 G/DL (5.7-8.2)
[2024-10-16 18:59] LABS: HEMOGLOBIN A1c 6.9 % (4.0-6.0)
== END ==
LOC: M SFHCCLAY 09:53
PROVIDERS: ATTEND Family Medicine
DX: E11.9 Type 2 diabetes mellitus without complications (principal)

== ENCOUNTER → 2025-01-14 | Outpatient (REF) | payer MEDICARE, OTHER ==
[2025-01-14 12:49] LABS: ALT/SGPT 35.0 U/L (7.0-40); AST/SGOT 27.0 U/L (<34); CALCIUM LEVEL 9.2 MG/DL (8.3-10.6); CARBON DIOXIDE LEVEL 31.0 MMOL/L (20-31); CHLORIDE LEVEL 103.0 MMOL/L (98-107); CREATININE FOR GFR 0.82 MG/DL (0.55-1.30); GLOMERULAR FILTRATION RATE 80.8 (>45); POTASSIUM SERUM 5.4 MMOL/L (3.5-5.1); SODIUM LEVEL 141.0 MMOL/L (136-145)
[2025-01-14 12:50] LABS: FREE T4 1.18 NG/DL (0.89-1.76)
[2025-01-14 12:55] LABS: ESTIMATED AVERAGE GLUCOSE 120.0 MG/DL (60-110)
== END ==
LOC: M SFHCCLAY 08:53
PROVIDERS: ATTEND Family Medicine
DX: E03.9 Hypothyroidism, unspecified (principal); E11.9 Type 2 diabetes mellitus without complications

== ENCOUNTER → 2025-04-23 | Outpatient (REF) | payer MEDICARE, OTHER ==
[2025-04-23 12:38] LABS: ALT/SGPT 29.0 U/L (7.0-40); AST/SGOT 24.0 U/L (<34); CALCIUM LEVEL 10.1 MG/DL (8.3-10.6); CARBON DIOXIDE LEVEL 31.0 MMOL/L (20-31); CHLORIDE LEVEL 101.0 MMOL/L (98-107); CREATININE FOR GFR 0.99 MG/DL (0.55-1.30); GLOMERULAR FILTRATION RATE 64.1 (>45); POTASSIUM SERUM 5.2 MMOL/L (3.5-5.1); SODIUM LEVEL 141.0 MMOL/L (136-145)
[2025-04-23 12:41] LABS: FREE T4 1.22 NG/DL (0.89-1.76)
[2025-04-23 12:46] LABS: ESTIMATED AVERAGE GLUCOSE 114.0 MG/DL (60-110)
== END ==
LOC: M SFHCCLAY 08:51
PROVIDERS: ATTEND Family Medicine
DX: E03.9 Hypothyroidism, unspecified (principal); E11.9 Type 2 diabetes mellitus without complications